=== PATIENT | female | born 2000 | race Caucasian/White ===

== ENCOUNTER 2019-07-02 11:56 | Emergency (ER) | payer OTHER ==
[2019-07-02 12:01] VITALS: BP 121/82; PULSE 95; RESP 16; TEMP 98.1
--- NOTE | 2019-07-02 12:12 | ED ---
ENT HPI - General Chief complaint: ENT Stated complaint: sorethroat Time Seen by Provider: 07/02/19 12:01 Source: patient Mode of arrival: ambulatory Limitations: no limitations - History of Present Illness Initial comments: Patient is a 19-year-old female presenting to the emergency Department with complaints of a sore throat 2 days. Patient states throat started hurting about a week ago then symptoms improved until about 2 days ago when she noticed pain with swallowing and her tonsils are enlarged. Patient denies fever, chills, cough, congestion, nausea, vomiting. Patient has no other complaints at this time. Patient has no pertinent past medical history. Upon arrival to ER, vital signs are stable. - Related Data Home Medications Medication Instructions Recorded Confirmed Citalopram Hydrobromide 20 mg PO DAILY 05/30/16 05/30/16 [Citalopram HBr] Norgestimate-Ethinyl Estradiol 1 tab PO DAILY 05/30/16 05/30/16 [Ortho Tri-Cyclen 28 Tablet] Previous Rx's Medication Instructions Recorded Penicillin V Potassium [Pen Vee K] 500 mg PO BID 10 Days #20 tablet 07/02/19 methylPREDNISolone [Medrol Dose 4 mg PO DIRECTED #1 pack 07/02/19 Pack] Allergies Allergy/AdvReac Type Severity Reaction Status Date / Time latex Allergy Rash/Hives Verified 07/02/19 12:01 Review of Systems ROS Statement: Those systems with pertinent positive or pertinent negative responses have been documented in the HPI. ROS Other: All systems not noted in ROS Statement are negative. Past Medical History Past Medical History: No Reported History History of Any Multi-Drug Resistant Organisms: None Reported Additional Past Surgical History / Comment(s): right knee surgery at age 1 and right hip surgery at 12 Past Psychological History: Anxiety, Bipolar, Depression Smoking Status: Current every day smoker Past Alcohol Use History: Occasional Past Drug Use History: Marijuana General Exam - General Exam Comments Initial Comments: GENERAL: Well-appearing, well-nourished and in no acute distress. HEAD: Atraumatic, normocephalic. EYES: Pupils equal round and reactive to light, extraocular movements intact, sclera anicteric, conjunctiva are normal. ENT: TMs normal, nares patent, oropharynx erythematous, tonsils 2+ enlarged, erythematous, without exudate Moist mucous membranes. NECK: Normal range of motion, supple without lymphadenopathy or JVD. LUNGS: Breath sounds clear to auscultation bilaterally and equal. No wheezes rales or rhonchi. HEART: Regular rate and rhythm without murmurs, rubs or gallops. ABDOMEN: Soft, nontender, normoactive bowel sounds. No guarding, no rebound. No masses appreciated. EXTREMITIES: No pitting or edema. No clubbing or cyanosis. NEUROLOGICAL: Cranial nerves II through XII grossly intact. SKIN: Warm, Dry, normal turgor, no rashes or lesions noted. Limitations: no limitations Course Vital Signs 07/02/19 11:58 Temperature 98.1 F Pulse Rate 95 Respiratory 16 Rate Blood Pressure 121/82 O2 Sat by Pulse 97 Oximetry Medical Decision Making - Medical Decision Making Patient is a 19-year-old female presenting with a sore throat 2 days. Exam reveals tonsillar enlargement and erythematous no exudate. Strep is negative today. Patient will be started on antibiotics and steroids. Patient is stable for discharge at this time. Return parameters were discussed with the patient and she verbalized understanding. Case discussed with Dr. Reyes. - Lab Data Lab Results 07/02/19 Range/Units 12:05 Group A Strep Rapid Negative (Negative) Disposition Clinical Impression: Tonsillitis, Sore throat Disposition: HOME SELF-CARE Condition: Stable Instructions (If sedation given, give patient instructions): Tonsillitis (ED) Additional Instructions: Please return to the Emergency Department if symptoms worsen or any other concerns. Follow-up with PCP if symptoms persist after one week. Take antibiotics and steroids as prescribed. A take Tylenol for pain. Prescriptions: methylPREDNISolone [Medrol Dose Pack] 4 mg PO DIRECTED #1 pack Penicillin V Potassium [Pen Vee K] 500 mg PO BID 10 Days #20 tablet Is patient prescribed a controlled substance at d/c from ED?: No Referrals: Jaime Perrin DO [Primary Care Provider] - 1-2 days
== END 2019-07-02 12:45 | disposition home or self-care (01) ==
LOC: EC 11:56
DX: J03.90 Acute tonsillitis, unspecified (principal); F41.9 Anxiety disorder, unspecified; F31.9 Bipolar disorder, unspecified; F17.200 Nicotine dependence, unspecified, uncomplicated; Z79.899 Other long term (current) drug therapy; Z79.3 Long term (current) use of hormonal contraceptives; Z91.040 Latex allergy status
CPT/HCPCS: 87081; 87430; 99283

== ENCOUNTER 2019-08-15 16:10 | Emergency (ER) | payer OTHER ==
[2019-08-15 16:38] VITALS: BP 119/82; PULSE 91; RESP 19; TEMP 98
[2019-08-15] MEDS ORDERED: SODIUM CHLORIDE 0.9% 1,000 ML IV ONE (17:20)
--- NOTE | 2019-08-15 17:35 | ED ---
General Adult HPI - General Chief complaint: Vaginal Bleeding Stated complaint: Vaginal bleeding Time Seen by Provider: 08/15/19 17:06 Source: patient, RN notes reviewed Mode of arrival: ambulatory Limitations: no limitations - History of Present Illness Initial comments: 19-year-old female presents to the emergency department for chief complaint vaginal bleeding. Patient has had spotting for the past couple weeks. States that she went to the clinic today and was told she was . Patient does admit to cramping abdominal pain with this bleeding. Patient states her last menstrual period was 08/01/2019. Patient states she is currently trying to see Dr. Donovan.Patient has no other complaints at this time including shortness of breath, chest pain, abdominal pain, nausea or vomiting, headache, or visual changes. - Related Data Home Medications Medication Instructions Recorded Confirmed Citalopram Hydrobromide 20 mg PO DAILY 05/30/16 05/30/16 [Citalopram HBr] Norgestimate-Ethinyl Estradiol 1 tab PO DAILY 05/30/16 05/30/16 [Ortho Tri-Cyclen 28 Tablet] Previous Rx's Medication Instructions Recorded Penicillin V Potassium [Pen Vee K] 500 mg PO BID 10 Days #20 tablet 07/02/19 methylPREDNISolone [Medrol Dose 4 mg PO DIRECTED #1 pack 07/02/19 Pack] Cephalexin [Keflex] 500 mg PO Q6HR 7 Days #28 cap 08/15/19 Allergies Allergy/AdvReac Type Severity Reaction Status Date / Time latex Allergy Rash/Hives Verified 07/02/19 12:01 Review of Systems ROS Statement: Those systems with pertinent positive or pertinent negative responses have been documented in the HPI. ROS Other: All systems not noted in ROS Statement are negative. Past Medical History Past Medical History: No Reported History History of Any Multi-Drug Resistant Organisms: None Reported Additional Past Surgical History / Comment(s): right knee surgery at age 1 and right hip surgery at 12 Past Psychological History: Anxiety, Bipolar, Depression Smoking Status: Current every day smoker Past Alcohol Use History: Occasional Past Drug Use History: Marijuana General Exam Limitations: no limitations General appearance: alert, in no apparent distress Head exam: Present: atraumatic, normocephalic, normal inspection Eye exam: Present: normal appearance, PERRL, EOMI. Absent: scleral icterus, conjunctival injection, periorbital swelling ENT exam: Present: normal exam, mucous membranes moist Neck exam: Present: normal inspection, full ROM. Absent: tenderness, meningismus, lymphadenopathy Respiratory exam: Present: normal lung sounds bilaterally. Absent: respiratory distress, wheezes, rales, rhonchi, stridor Cardiovascular Exam: Present: regular rate, normal rhythm, normal heart sounds. Absent: systolic murmur, diastolic murmur, rubs, gallop, clicks GI/Abdominal exam: Present: soft, normal bowel sounds. Absent: distended, tenderness, guarding, rebound, rigid Neurological exam: Present: alert Course Vital Signs 08/15/19 16:36 Temperature 98.0 F Pulse Rate 91 Respiratory 19 Rate Blood Pressure 119/82 O2 Sat by Pulse 99 Oximetry Medical Decision Making - Medical Decision Making Vitals are stable. Patient reports only slight spotting. Admits to some mild cramping. CBC is generally unremarkable. There is some evidence of hemoconcentration to patient was given a liter of fluids. White count of 10.8 is likely reactive. CMP is unremarkable. Urinalysis does show evidence for urinary tract infection. Patient is O+ blood type, does not require RhoGAM. Ultrasound shows an empty uterus without adnexal mass. Given hCG Quant is only 141 with a last menstrual period of August 01, this is likely too early to see any fetus. Therefore hCG will be trended. I discussed with patient and she is aware. Patient is falling up with Dr. Donovan outpatient. She will be treated with Rocephin here in the emergency department for urinary tract infection as well as Keflex at home. - Lab Data Result diagrams: 08/15/19 18:00 08/15/19 18:00 Lab Results 08/15/19 08/15/19 08/15/19 Range/Units 18:00 18:00 18:00 WBC 10.8 H (3.8-10.6) k/uL RBC 5.06 (3.80-5.40) m/uL Hgb 16.5 H (11.4-16.0) gm/dL Hct 46.7 H (34.0-46.0) % MCV 92.2 (80.0-100.0) fL MCH 32.6 (25.0-35.0) pg MCHC 35.3 (31.0-37.0) g/dL RDW 12.8 (11.5-15.5) % Plt Count 334 (150-450) k/uL Neutrophils % 58 % Lymphocytes % 30 % Monocytes % 5 % Eosinophils % 6 % Basophils % 0 % Neutrophils # 6.3 (1.3-7.7) k/uL Lymphocytes # 3.2 (1.0-4.8) k/uL Monocytes # 0.5 (0-1.0) k/uL Eosinophils # 0.6 (0-0.7) k/uL Basophils # 0.0 (0-0.2) k/uL Sodium (137-145) mmol/L Potassium (3.5-5.1) mmol/L Chloride (98-107) mmol/L Carbon Dioxide (22-30) mmol/L Anion Gap mmol/L BUN (7-17) mg/dL Creatinine (0.52-1.04) mg/dL Est GFR (CKD-EPI)AfAm (>60 ml/min/1.73 sqM) Est GFR (CKD-EPI)NonAf (>60 ml/min/1.73 sqM) Glucose (74-99) mg/dL Calcium (8.4-10.2) mg/dL Total Bilirubin (0.2-1.3) mg/dL AST (14-36) U/L ALT (9-52) U/L Alkaline Phosphatase (38-126) U/L Total Protein (6.3-8.2) g/dL Albumin (3.5-5.0) g/dL HCG, Quant mIU/mL Urine Color Urine Appearance (Clear) Urine pH (5.0-8.0) Ur Specific [place] (1.001-1.035) Urine Protein (Negative) Urine Glucose (UA) (Negative) Urine Ketones (Negative) Urine Blood (Negative) Urine Nitrite (Negative) Urine Bilirubin (Negative) Urine Urobilinogen (<2.0) mg/dL Ur Leukocyte Esterase (Negative) Urine RBC (0-5) /hpf Urine WBC (0-5) /hpf Urine WBC Clumps (None) /hpf Ur Squamous Epith Cells (0-4) /hpf Calcium Oxalate Crystal (None) /hpf Urine Bacteria (None) /hpf Urine Mucus (None) /hpf Urine Yeast (Budding) (None) /hpf Urine HCG, Qual Detected (Not Detectd) Blood Type O Positive Blood Type Recheck No Previous Record Bld Type Recheck Status [facility] ONLY 08/15/19 08/15/19 Range/Units 18:00 18:00 WBC (3.8-10.6) k/uL RBC (3.80-5.40) m/uL Hgb (11.4-16.0) gm/dL Hct (34.0-46.0) % MCV (80.0-100.0) fL MCH (25.0-35.0) pg MCHC (31.0-37.0) g/dL RDW (11.5-15.5) % Plt Count (150-450) k/uL Neutrophils % % Lymphocytes % % Monocytes % % Eosinophils % % Basophils % % Neutrophils # (1.3-7.7) k/uL Lymphocytes # (1.0-4.8) k/uL Monocytes # (0-1.0) k/uL Eosinophils # (0-0.7) k/uL Basophils # (0-0.2) k/uL Sodium 140 (137-145) mmol/L Potassium 4.2 (3.5-5.1) mmol/L Chloride 111 H (98-107) mmol/L Carbon Dioxide 20 L (22-30) mmol/L Anion Gap 9 mmol/L BUN 9 (7-17) mg/dL Creatinine 0.70 (0.52-1.04) mg/dL Est GFR (CKD-EPI)AfAm >90 (>60 ml/min/1.73 sqM) Est GFR (CKD-EPI)NonAf >90 (>60 ml/min/1.73 sqM) Glucose 77 (74-99) mg/dL Calcium 10.0 (8.4-10.2) mg/dL Total Bilirubin 0.5 (0.2-1.3) mg/dL AST 27 (14-36) U/L ALT 22 (9-52) U/L Alkaline Phosphatase 80 (38-126) U/L Total Protein 7.3 (6.3-8.2) g/dL Albumin 4.6 (3.5-5.0) g/dL HCG, Quant 141.0 mIU/mL Urine Color Yellow Urine Appearance Cloudy H (Clear) Urine pH 5.5 (5.0-8.0) Ur Specific [place] 1.023 (1.001-1.035) Urine Protein 1+ H (Negative) Urine Glucose (UA) Negative (Negative) Urine Ketones Negative (Negative) Urine Blood Large H (Negative) Urine Nitrite Positive H (Negative) Urine Bilirubin Negative (Negative) Urine Urobilinogen <2.0 (<2.0) mg/dL Ur Leukocyte Esterase Small H (Negative) Urine RBC 78 H (0-5) /hpf Urine WBC 29 H (0-5) /hpf Urine WBC Clumps Few H (None) /hpf Ur Squamous Epith Cells 4 (0-4) /hpf Calcium Oxalate Crystal Few H (None) /hpf Urine Bacteria Occasional H (None) /hpf Urine Mucus Few H (None) /hpf Urine Yeast (Budding) Rare H (None) /hpf Urine HCG, Qual (Not Detectd) Blood Type Blood Type Recheck Bld Type Recheck Status Disposition Clinical Impression: Urinary tract infection, Threatened miscarriage Disposition: HOME SELF-CARE Condition: Good Instructions (If sedation given, give patient instructions): Threatened Miscarriage (ED) Additional Instructions: Please repeat hCG in 2 days. Please follow-up with [facility] in one to 2 days. Take antibiotic as directed. This was prescribed to [facility]. If you have any worsening symptoms such as heavier bleeding, abdominal pain, fevers return to the emergency department. Prescriptions: Cephalexin [Keflex] 500 mg PO Q6HR 7 Days #28 cap Is patient prescribed a controlled substance at d/c from ED?: No Referrals: Jackie Barraza MD [REFERRING] - 1-2 days Time of Disposition: 19:05
[2019-08-15 18:16] LABS: Basophils % (A) 0 %; Eosinophils # (A) 0.6 k/uL (0-0.7); Eosinophils % (A) 6 %; HCT 46.7 % (34.0-46.0); HGB 16.5 gm/dL (11.4-16.0); Lymphocytes # (A) 3.2 k/uL (1.0-4.8); Lymphocytes % (A) 30 %; MCH 32.6 pg (25.0-35.0); MCHC 35.3 g/dL (31.0-37.0); MCV 92.2 fL (80.0-100.0); Mean Platelet Volume 7.3; Monocytes # (A) 0.5 k/uL (0-1.0); Monocytes % (A) 5 %; Neutrophils # (A) 6.3 k/uL (1.3-7.7); Neutrophils % (A) 58 %; Platelet Count 334 k/uL (150-450); RBC 5.06 m/uL (3.80-5.40); RDW 12.8 % (11.5-15.5); WBC 10.8 k/uL (3.8-10.6)
[2019-08-15 18:25] LABS: Appearance,Urine Cloudy (Clear); Bacteria,Urine Occasional /hpf; Bilirubin,Urine Negative (Negative); Blood,Urine Large (Negative); Budding Yeast,Urine Rare /hpf; Calcium Oxalate Crystals,Urine Few /hpf; Color,Urine Yellow; Glucose,Urine (UA) Negative (Negative); Ketones,Urine Negative (Negative); Leukocyte Esterase,Urine Small (Negative); Mucus,Urine Few /hpf; Nitrite,Urine Positive (Negative); PH, Urine 5.5 (5.0-8.0); Protein,Urine 1+ (Negative); RBC,Urine 78 /hpf (0-5); Specific Gravity,Urine 1.023 (1.001-1.035); Squamous Epithelial Cell,Urine 4 /hpf (0-4); Urobilinogen,Urine <2.0 mg/dL (<2.0)
[2019-08-15 18:34] LABS: ALT 22 U/L (9-52); AST 27 U/L (14-36); African American GFR (CKD) >90 (>60 ml/min/1.73 sqM); Albumin 4.6 g/dL (3.5-5.0); Alkaline Phosphatase 80 U/L (38-126); Anion Gap 9 mmol/L; Blood Urea Nitrogen 9 mg/dL (7-17); Carbon Dioxide 20 mmol/L (22-30); Chloride 111 mmol/L (98-107); Glucose 77 mg/dL (74-99); Non-African American GFR(CKD) >90 (>60 ml/min/1.73 sqM); Potassium 4.2 mmol/L (3.5-5.1); Sodium 140 mmol/L (137-145); Total Bilirubin 0.5 mg/dL (0.2-1.3); Total Protein 7.3 g/dL (6.3-8.2)
--- NOTE | 2019-08-15 18:35 | US ---
EXAMINATION TYPE: Transabdominal DATE OF EXAM: 08/15/2019 6:15 PM COMPARISON: NONE CLINICAL HISTORY: pain. Spotting EXAM PERFORMED: Transabdominal (TA) EXAM MEASUREMENTS: GESTATIONAL AGE / DATING Physician Established: Not yet established ( Dates by LMP: (2 weeks/0 days) EDC: 05/07/2020 Dates by First Scan: No previous this is first scan Dates by Current Scan for: No IUP seen at this time MATERNAL ANATOMY Uterus: 7.4 x 3.0 x 4.6 cm Right Ovary: 3.2 x 2.9 x 2.2 cm Cystic area seen only no ovarian tissue. Left Ovary: 2.4 x 1.8 x 1.3 cm Post CDS / Adnexa: wnl Presence of free fluid: no Presence of corpus luteal cyst: yes right Presence of subchorionic bleed: no GESTATION / SURVEY IUP: No IUP seen too early. Beta HcG (if available): Not available at this time IMPRESSION: Empty uterus. No adnexal mass or free fluid.
[2019-08-15] MEDS ORDERED: cefTRIAXone IN SWFI 1,000 MG/10 ML SYRINGE IVP STA (18:58)
[2019-08-16 15:54] LABS: C. trachomatis,PCR Negative (Neg,Equiv); Chlamydia trachomatis Source Urine; N. gonorrhoeae,PCR Negative (Neg,Equiv); Neisseria Source Urine
== END 2019-08-15 19:50 | disposition home or self-care (01) ==
LOC: EC 16:10
DX: O20.0 Threatened abortion (principal); O23.40 Unspecified infection of urinary tract in pregnancy, unspecified trimester; O99.340 Other mental disorders complicating pregnancy, unspecified trimester; F41.9 Anxiety disorder, unspecified; F32.9 Major depressive disorder, single episode, unspecified; O99.330 Smoking (tobacco) complicating pregnancy, unspecified trimester; F17.200 Nicotine dependence, unspecified, uncomplicated; Z3A.00 Weeks of gestation of pregnancy not specified; Z79.899 Other long term (current) drug therapy; Z91.040 Latex allergy status
CPT/HCPCS: 36415; 86900; 86901; 80053; 85025; 81001; 81025; 84702; 87491; 87591; 87086; 76801; 99284; 96374; 96361; J0696; 87077; 87186

== ENCOUNTER → 2019-08-17 | Outpatient (CLI) | payer OTHER | END | disposition home or self-care (01) | LOC: LABWHC1 10:08 | PROVIDERS: ATTEND Physician Assistant Medical | DX: O20.0 Threatened abortion (principal) | CPT/HCPCS: 36415; 84702 ==

== ENCOUNTER → 2019-08-19 | Outpatient (CLI) | payer OTHER | END | disposition home or self-care (01) | LOC: LABWHC1 14:09 | PROVIDERS: ATTEND Obstetrics & Gynecology | DX: O03.9 Complete or unspecified spontaneous abortion without complication (principal) | CPT/HCPCS: 36415; 84702 ==

== ENCOUNTER → 2019-10-28 | Outpatient (CLI) | payer OTHER | END | disposition home or self-care (01) | LOC: LABWHC1 15:35 | PROVIDERS: ATTEND Obstetrics & Gynecology | DX: Z34.80 Encounter for supervision of other normal pregnancy, unspecified trimester (principal) | CPT/HCPCS: 36415; 84702 ==

== ENCOUNTER → 2019-11-04 | Outpatient (CLI) | payer OTHER ==
--- NOTE | 2019-11-04 08:02 | US ---
EXAMINATION TYPE: Transabdominal DATE OF EXAM: 11/04/2019 7:35 AM COMPARISON: NONE CLINICAL HISTORY: Z36 Confirm Dates. Confirm dates. No spotting or pain. EXAM PERFORMED: Transabdominal (TA) EXAM MEASUREMENTS: GESTATIONAL AGE / DATING Dates by LMP: (6 weeks/5 days) EDC: 06/24/2020 Dates by First Scan: No previous this is first scan Dates by Current Scan for: ( 6 weeks/2 days) EDC: 06/27/2020 MATERNAL ANATOMY Uterus: 8.9 x 7.1 x 4.5 cm Right Ovary: 2.9 x 1.1 x 1.5 cm Left Ovary: 3.6 x 2.7 x 2.6 cm Post CDS / Adnexa: no free fluid Presence of free fluid: no Presence of corpus luteal cyst: left ovarian lesion with peripheral vascular flow = 2.8 x 2.1 x 2.1 c m Presence of subchorionic bleed: no GESTATION / SURVEY CRL: 0.5 cm (6 weeks/2 days) MSD: seen, not measured Yolk Sac (normal less than 6mm): 2.8 mm Heart Rate: 120 bpm Rhythm: Normal IUP: Live IUP Date of LMP: 09/18/2019, Beta HcG (if available): Not available at this time Single live IUP measuring 6 weeks 2 days IMPRESSION: Single live intrauterine with a sonographic age of 6 weeks and 2 days and estim ated date of delivery of 06/27/2020, concordant with menstrual age.
== END | disposition home or self-care (01) ==
LOC: RADUSWWP 07:08
PROVIDERS: ATTEND Obstetrics & Gynecology
DX: Z36.89 Encounter for other specified antenatal screening (principal); Z3A.01 Less than 8 weeks gestation of pregnancy
CPT/HCPCS: 76801

== ENCOUNTER 2019-11-14 15:36 | Emergency (ER) | payer OTHER ==
[2019-11-14] MEDS ORDERED: SODIUM CHLORIDE 0.9% 1,000 ML IV STA ×2 (16:14)
--- NOTE | 2019-11-14 16:17 | ED ---
Abdominal Pain HPI - General Chief Complaint: Abdominal Pain Stated Complaint: abdominal pain/rectal bleeding/8 wks Time Seen by Provider: 11/14/19 15:58 Source: patient Mode of arrival: ambulatory Limitations: no limitations - History of Present Illness Initial Comments: Connie is a 19-year-old female who is currently 8 weeks . She presents emergency department today with abdominal pain cramping sensation for the past 3 days. She initially reports it started with constipation and then developed diarrhea yesterday. She reports now she is having bloody stools. Patient states she's had no vaginal bleeding or discharge. Her [employer] is Dr. Donovan. Patient states that she is a Patient with multiple miscarriages. re ports she's also been having nausea and vomiting but relates that this is seems to be related to morning sickness related to . - Related Data Home Medications Medication Instructions Recorded Confirmed Citalopram Hydrobromide 20 mg PO DAILY 05/30/16 05/30/16 [Citalopram HBr] Norgestimate-Ethinyl Estradiol 1 tab PO DAILY 05/30/16 05/30/16 [Ortho Tri-Cyclen 28 Tablet] Previous Rx's Medication Instructions Recorded Penicillin V Potassium [Pen Vee K] 500 mg PO BID 10 Days #20 tablet 07/02/19 methylPREDNISolone [Medrol Dose 4 mg PO DIRECTED #1 pack 07/02/19 Pack] Cephalexin [Keflex] 500 mg PO Q6HR 7 Days #28 cap 08/15/19 Cephalexin [Keflex] 500 mg PO Q8HR #21 cap 11/14/19 Metoclopramide [Reglan] 10 mg PO ACHS #12 tab 11/14/19 Allergies Allergy/AdvReac Type Severity Reaction Status Date / Time latex Allergy Rash/Hives Verified 07/02/19 12:01 Review of Systems ROS Statement: Those systems with pertinent positive or pertinent negative responses have been documented in the HPI. ROS Other: All systems not noted in ROS Statement are negative. Past Medical History Past Medical History: No Reported History History of Any Multi-Drug Resistant Organisms: None Reported Additional Past Surgical History / Comment(s): right knee surgery at age 1 and right hip surgery at 12 Past Psychological History: Anxiety, Bipolar, Depression Smoking Status: Current every day smoker Past Alcohol Use History: Occasional Past Drug Use History: Marijuana General Exam - General Exam Comments Initial Comments: 5-year-old field. Alert and oriented. Limitations: no limitations General appearance: alert, in no apparent distress Head exam: Present: atraumatic, normocephalic, normal inspection Eye exam: Present: normal appearance, PERRL, EOMI. Absent: scleral icterus, conjunctival injection, periorbital swelling ENT exam: Present: normal exam, mucous membranes moist Neck exam: Present: normal inspection. Absent: tenderness, meningismus, lymphadenopathy Respiratory exam: Present: normal lung sounds bilaterally. Absent: respiratory distress, wheezes, rales, rhonchi, stridor Cardiovascular Exam: Present: regular rate, normal rhythm, normal heart sounds. Absent: systolic murmur, diastolic murmur, rubs, gallop, clicks GI/Abdominal exam: Present: soft, normal bowel sounds. Absent: distended, tenderness, guarding, rebound, rigid Extremities exam: Present: normal inspection, full ROM, normal capillary refill. Absent: tenderness, pedal edema, joint swelling, calf tenderness Back exam: Present: normal inspection Neurological exam: Present: alert, oriented X3, CN II-XII intact Psychiatric exam: Present: normal affect, normal mood Skin exam: Present: warm, dry, intact, normal color. Absent: rash Course Vital Signs 11/14/19 11/14/19 11/14/19 15:37 18:43 18:58 Temperature 97.4 F L 98.4 F 98.4 F Pulse Rate 106 H 86 86 Respiratory 18 16 16 Rate Blood Pressure 124/85 108/64 108/64 O2 Sat by Pulse 100 100 100 Oximetry Medical Decision Making - Medical Decision Making Sodium 1-year-old female presents emergency room status of bloody stool, also complains some lower abdominal discomfort. Patient has a weeks . Viable IUP with a heart rate of 158-1 60 bpm. Patient's stool occult is positive. Hemoglobin is stable. Discussed likely colitis. Discussed clear liquid diet and following up with PCP. All questions answered. - Lab Data Result diagrams: 11/14/19 16:45 11/14/19 16:45 Lab Results 11/14/19 11/14/19 11/14/19 Range/Units 16:45 16:45 16:45 WBC 10.8 H (3.8-10.6) k/uL RBC 5.01 (3.80-5.40) m/uL Hgb 15.7 (11.4-16.0) gm/dL Hct 44.6 (34.0-46.0) % MCV 89.0 (80.0-100.0) fL MCH 31.3 (25.0-35.0) pg MCHC 35.1 (31.0-37.0) g/dL RDW 11.9 (11.5-15.5) % Plt Count 291 (150-450) k/uL Neutrophils % 73 % Lymphocytes % 20 % Monocytes % 4 % Eosinophils % 1 % Basophils % 0 % Neutrophils # 7.9 H (1.3-7.7) k/uL Lymphocytes # 2.2 (1.0-4.8) k/uL Monocytes # 0.5 (0-1.0) k/uL Eosinophils # 0.1 (0-0.7) k/uL Basophils # 0.0 (0-0.2) k/uL PT 9.5 (9.0-12.0) sec INR 0.9 (<1.2) APTT 23.8 (22.0-30.0) sec Sodium (137-145) mmol/L Potassium (3.5-5.1) mmol/L Chloride (98-107) mmol/L Carbon Dioxide (22-30) mmol/L Anion Gap mmol/L BUN (7-17) mg/dL Creatinine (0.52-1.04) mg/dL Est GFR (CKD-EPI)AfAm (>60 ml/min/1.73 sqM) Est GFR (CKD-EPI)NonAf (>60 ml/min/1.73 sqM) Glucose (74-99) mg/dL Calcium (8.4-10.2) mg/dL Total Bilirubin (0.2-1.3) mg/dL AST (14-36) U/L ALT (4-34) U/L Alkaline Phosphatase (38-126) U/L Total Protein (6.3-8.2) g/dL Albumin (3.5-5.0) g/dL Amylase (30-110) U/L Lipase (23-300) U/L Urine Color Urine Appearance (Clear) Urine pH (5.0-8.0) Ur Specific [place] (1.001-1.035) Urine Protein (Negative) Urine Glucose (UA) (Negative) Urine Ketones (Negative) Urine Blood (Negative) Urine Nitrite (Negative) Urine Bilirubin (Negative) Urine Urobilinogen (<2.0) mg/dL Ur Leukocyte Esterase (Negative) Urine RBC (0-5) /hpf Urine WBC (0-5) /hpf Ur Squamous Epith Cells (0-4) /hpf Urine Bacteria (None) /hpf Urine Mucus (None) /hpf Stool Occult Blood (Negative) Blood Type O Positive Blood Type Recheck O Pos Bld Type Recheck Status No 11/14/19 11/14/19 11/14/19 Range/Units 16:45 16:45 16:45 WBC (3.8-10.6) k/uL RBC (3.80-5.40) m/uL Hgb (11.4-16.0) gm/dL Hct (34.0-46.0) % MCV (80.0-100.0) fL MCH (25.0-35.0) pg MCHC (31.0-37.0) g/dL RDW (11.5-15.5) % Plt Count (150-450) k/uL Neutrophils % % Lymphocytes % % Monocytes % % Eosinophils % % Basophils % % Neutrophils # (1.3-7.7) k/uL Lymphocytes # (1.0-4.8) k/uL Monocytes # (0-1.0) k/uL Eosinophils # (0-0.7) k/uL Basophils # (0-0.2) k/uL PT (9.0-12.0) sec INR (<1.2) APTT (22.0-30.0) sec Sodium 137 (137-145) mmol/L Potassium 3.9 (3.5-5.1) mmol/L Chloride 108 H (98-107) mmol/L Carbon Dioxide 19 L (22-30) mmol/L Anion Gap 10 mmol/L BUN 7 (7-17) mg/dL Creatinine 0.69 (0.52-1.04) mg/dL Est GFR (CKD-EPI)AfAm >90 (>60 ml/min/1.73 sqM) Est GFR (CKD-EPI)NonAf >90 (>60 ml/min/1.73 sqM) Glucose 83 (74-99) mg/dL Calcium 9.9 (8.4-10.2) mg/dL Total Bilirubin 0.5 (0.2-1.3) mg/dL AST 28 (14-36) U/L ALT 44 H (4-34) U/L Alkaline Phosphatase 83 (38-126) U/L Total Protein 7.2 (6.3-8.2) g/dL Albumin 4.5 (3.5-5.0) g/dL Amylase 37 (30-110) U/L Lipase 40 (23-300) U/L Urine Color Yellow Urine Appearance Cloudy H (Clear) Urine pH 6.5 (5.0-8.0) Ur Specific [place] 1.035 (1.001-1.035) Urine Protein 1+ H (Negative) Urine Glucose (UA) Negative (Negative) Urine Ketones 1+ H (Negative) Urine Blood Negative (Negative) Urine Nitrite Negative (Negative) Urine Bilirubin Negative (Negative) Urine Urobilinogen 2.0 (<2.0) mg/dL Ur Leukocyte Esterase Moderate H (Negative) Urine RBC 2 (0-5) /hpf Urine WBC 7 H (0-5) /hpf Ur Squamous Epith Cells 32 H (0-4) /hpf Urine Bacteria Rare H (None) /hpf Urine Mucus Many H (None) /hpf Stool Occult Blood Positive H (Negative) Blood Type Blood Type Recheck Bld Type Recheck Status - Radiology Data Radiology results: report reviewed Ultrasound shows viable IUP with heart rate of 116 1 58 bpm. Disposition Clinical Impression: Colitis, UTI (urinary tract infection), Nausea/vomiting in Disposition: HOME SELF-CARE Condition: Good Instructions (If sedation given, give patient instructions): Nausea and Vomiting in (ED), Colitis (ED) Additional Instructions: Please use medication as discussed. Patient advised on a clear liquid diet for the next 24 hours. Please follow up with family doctor if symptoms have not improved over the next two days. Please return to the emergency room if your symptoms increase or worsen or for any other concerns. Prescriptions: Cephalexin [Keflex] 500 mg PO Q8HR #21 cap Metoclopramide [Reglan] 10 mg PO ACHS #12 tab Is patient prescribed a controlled substance at d/c from ED?: No Referrals: Jaime Perrin DO [Primary Care Provider] - 1-2 days Time of Disposition: 18:10
[2019-11-14] MEDS ORDERED: ACETAMINOPHEN TAB 500 MG TAB PO STA (16:56)
[2019-11-14 17:06] LABS: INR 0.9 (<1.2); Partial Thromboplastin Time 23.8 sec (22.0-30.0); Prothrombin Time 9.5 sec (9.0-12.0)
[2019-11-14 17:08] LABS: ALT 44 U/L (4-34); AST 28 U/L (14-36); African American GFR (CKD) >90 (>60 ml/min/1.73 sqM); Albumin 4.5 g/dL (3.5-5.0); Alkaline Phosphatase 83 U/L (38-126); Amylase 37 U/L (30-110); Anion Gap 10 mmol/L; Blood Urea Nitrogen 7 mg/dL (7-17); Calcium 9.9 mg/dL (8.4-10.2); Carbon Dioxide 19 mmol/L (22-30); Chloride 108 mmol/L (98-107); Glucose 83 mg/dL (74-99); Non-African American GFR(CKD) >90 (>60 ml/min/1.73 sqM); Potassium 3.9 mmol/L (3.5-5.1); Sodium 137 mmol/L (137-145); Total Bilirubin 0.5 mg/dL (0.2-1.3); Total Protein 7.2 g/dL (6.3-8.2)
[2019-11-14 17:09] LABS: Appearance,Urine Cloudy (Clear); Bacteria,Urine Rare /hpf; Bilirubin,Urine Negative (Negative); Blood,Urine Negative (Negative); Color,Urine Yellow; Glucose,Urine (UA) Negative (Negative); Ketones,Urine 1+ (Negative); Leukocyte Esterase,Urine Moderate (Negative); Mucus,Urine Many /hpf; Nitrite,Urine Negative (Negative); PH, Urine 6.5 (5.0-8.0); Protein,Urine 1+ (Negative); RBC,Urine 2 /hpf (0-5); Specific Gravity,Urine 1.035 (1.001-1.035); Squamous Epithelial Cell,Urine 32 /hpf (0-4); WBC,Urine 7 /hpf (0-5)
[2019-11-14 17:13] LABS: Basophils % (A) 0 %; Eosinophils # (A) 0.1 k/uL (0-0.7); Eosinophils % (A) 1 %; HCT 44.6 % (34.0-46.0); HGB 15.7 gm/dL (11.4-16.0); Lymphocytes # (A) 2.2 k/uL (1.0-4.8); Lymphocytes % (A) 20 %; MCH 31.3 pg (25.0-35.0); MCHC 35.1 g/dL (31.0-37.0); Mean Platelet Volume 7.8; Monocytes # (A) 0.5 k/uL (0-1.0); Monocytes % (A) 4 %; Neutrophils # (A) 7.9 k/uL (1.3-7.7); Neutrophils % (A) 73 %; Platelet Count 291 k/uL (150-450); RBC 5.01 m/uL (3.80-5.40); RDW 11.9 % (11.5-15.5); WBC 10.8 k/uL (3.8-10.6)
--- NOTE | 2019-11-14 17:28 | US ---
EXAMINATION TYPE: US OB limited DATE OF EXAM: 11/14/2019 COMPARISON: Prior ultrasound November 04, 2019. CLINICAL HISTORY: heart tones. Abnormal exam. EXAM PERFORMED: Transabdominal (TA) GESTATIONAL AGE / DATING No growth performed on today?s study per ordering physician SURVEY HEART RATE: Measured 160 and 158 on 2 images saved bpm IMPRESSION: Only 3 images performed confirm persistent live intrauterine gestation with normal heart rate.
[2019-11-14] MEDS ORDERED: diphenhydrAMINE 50 MG/ML 1 ML VIAL IVP STA (18:08)
[2019-11-14] MEDS ORDERED: METOCLOPRAMIDE 5 MG/ML 2 ML VIAL IVP STA (18:08)
[2019-11-14 18:44] VITALS: BP 108/64; PULSE 86; RESP 16; TEMP 98.4
== END 2019-11-14 18:58 | disposition home or self-care (01) ==
LOC: EC 15:36
DX: O23.41 Unspecified infection of urinary tract in pregnancy, first trimester (principal); O99.611 Diseases of the digestive system complicating pregnancy, first trimester; K52.9 Noninfective gastroenteritis and colitis, unspecified; O99.331 Smoking (tobacco) complicating pregnancy, first trimester; F17.200 Nicotine dependence, unspecified, uncomplicated; O99.341 Other mental disorders complicating pregnancy, first trimester; F41.9 Anxiety disorder, unspecified; F31.9 Bipolar disorder, unspecified; Z79.3 Long term (current) use of hormonal contraceptives; Z79.899 Other long term (current) drug therapy; Z91.040 Latex allergy status; Z3A.08 8 weeks gestation of pregnancy
CPT/HCPCS: 36415; 86900; 86901; 80053; 82150; 83690; 85025; 85610; 85730; 82272; 81001; 76815; 99284; 96374; 96375; 96361 ×2; J1200; J2765

== ENCOUNTER 2020-01-16 21:56 | Emergency (ER) | payer OTHER ==
[2020-01-16 22:01] VITALS: BP 108/75; RESP 18; TEMP 98.2
--- NOTE | 2020-01-16 22:18 | ED ---
Upper Extremity HPI - General Chief Complaint: Extremity Injury, Upper Stated Complaint: Shoulder Pain, 17 wks Time Seen by Provider: 01/16/20 22:02 Source: patient Mode of arrival: ambulatory Limitations: no limitations - History of Present Illness Initial Comments: 19-year-old female patient who is 17 weeks presents to the emergency [facility] today for evaluation of left shoulder pain. Patient states about 3 weeks ago she was painting, stepped back and tripped and fell into a chair which then tipped over onto the side landing on her left side. Patient states since that time she's been having pain with movement of the hand. States today she dropped her coffee cup due to some weakness. States she does have pain radiating from the left shoulder down to the elbow. She denies any swelling, numbness, or tingling to the hand. Denies any neck injury. Patient denies any headache, back pain, chest pain, shortness of breath, dizziness, weakness, abdominal pain, nausea, vomiting, or difficulties with bowel movements or urination. - Related Data Home Medications Medication Instructions Recorded Confirmed Nitrofurantoin Monohyd/M-Cryst 100 mg PO BID 01/16/20 01/16/20 [Macrobid] Ondansetron [Zofran ODT] 4 mg PO TID PRN 01/16/20 01/16/20 Pnv,Calcium 72/Iron/Folic Acid 1 tab PO DAILY 01/16/20 01/16/20 [ Plus Tablet] Zolpidem Tartrate [Ambien] 5 mg PO HS 01/16/20 01/16/20 Allergies Allergy/AdvReac Type Severity Reaction Status Date / Time latex Allergy Rash/Hives Verified 01/16/20 22:31 Review of Systems ROS Statement: Those systems with pertinent positive or pertinent negative responses have been documented in the HPI. ROS Other: All systems not noted in ROS Statement are negative. Past Medical History Past Medical History: No Reported History History of Any Multi-Drug Resistant Organisms: None Reported Past Surgical History: Orthopedic Surgery Additional Past Surgical History / Comment(s): right knee surgery at age 1 and right hip surgery at 12 Past Psychological History: Anxiety, Bipolar, Depression Smoking Status: Current every day smoker Past Alcohol Use History: None Reported Past Drug Use History: None Reported, Marijuana General Exam Limitations: no limitations General appearance: alert, in no apparent distress, other (Physical well- developed, well-nourished adult female patient in no acute distress. Vital signs upon presentation are temperature 98.2F, pulse 109, respirations 18, blood pressure 108/75, pulse ox 100% on room air.) Neck exam: Present: normal inspection, full ROM, other (Nontender, no step-off, no deformity to firm midline palpation of the posterior cervical spine. Full range of motion without pain or limitation.). Absent: tenderness, meningismus, lymphadenopathy Respiratory exam: Present: normal lung sounds bilaterally. Absent: respiratory distress, wheezes, rales, rhonchi, stridor Cardiovascular Exam: Present: regular rate, normal rhythm, normal heart sounds. Absent: systolic murmur, diastolic murmur, rubs, gallop, clicks Extremities exam: Present: normal inspection, full ROM, tenderness (Tenderness over the clavicle, acromioclavicular joint, scapula, and humeral head.), normal capillary refill, other (There is no soft tissue swelling, or ecchymosis noted to the left shoulder. There is increased pain with range of motion but full active range of motion is intact. Skin to the left arm is pink, warm, dry. Cap refills less than 3 seconds. Radial pulses 2+ and equal bilaterally.). Absent: pedal edema, joint swelling, calf tenderness Neurological exam: Present: alert, oriented X3, CN II-XII intact Psychiatric exam: Present: normal affect, normal mood Skin exam: Present: warm, dry, intact, normal color. Absent: rash Course Vital Signs 01/16/20 21:57 Temperature 98.2 F Pulse Rate 109 H Respiratory 18 Rate Blood Pressure 108/75 O2 Sat by Pulse 100 Oximetry Medical Decision Making - Medical Decision Making 19-year-old female patient presents to the emergency department today for evaluation of left shoulder pain 2 weeks. Physical examination revealed normal inspection and full range of motion of the shoulder. Patient is 17 weeks we did discuss risks versus benefits of x-ray, patient wanted to p roceed with the x-ray with shielding. X-ray was obtained and was negative. We did discuss muscular strain as a cause for her symptoms. We discussed range of motion, Tylenol, heat application. She is instructed follow up with orthopedics for further evaluation. Return parameters were discussed in detail per she verbalizes understanding and agrees with this plan. - Radiology Data Radiology results: report reviewed, image reviewed X-ray of the left shoulder is obtained. Report was reviewed in its entirety. Impression by Dr. Melton shows negative left shoulder exam. Disposition Clinical Impression: Left shoulder strain Disposition: HOME SELF-CARE Condition: Good Instructions (If sedation given, give patient instructions): Shoulder Sprain (ED) Additional Instructions: Follow up with the firearms specialist for further evaluation. Continue to apply warm, moist, heat to the shoulder at least 20 minutes at a time four times daily. Continue tylenol for pain control. Return immediately for any new, worsening, or concerning symptoms. Is patient prescribed a controlled substance at d/c from ED?: No Referrals: Ellis Marx MD [STAFF PHYSICIAN] - 1-2 days Time of Disposition: 22:54
--- NOTE | 2020-01-16 22:44 | XR ---
EXAMINATION TYPE: XR shoulder complete LT DATE OF EXAM: 01/16/2020 COMPARISON: NONE HISTORY: Shoulder pain TECHNIQUE: 3 views FINDINGS: I see no fracture nor dislocation. Joint spaces are normal. There are no pathologic calcifi cations. IMPRESSION: Negative left shoulder exam.
[2020-01-16 23:00] VITALS: PULSE 106
== END 2020-01-16 23:00 | disposition home or self-care (01) ==
LOC: EC 21:56
DX: O9A.212 Injury, poisoning and certain other consequences of external causes complicating pregnancy, second trimester (principal); S46.912A Strain of unspecified muscle, fascia and tendon at shoulder and upper arm level, left arm, initial encounter; O99.332 Smoking (tobacco) complicating pregnancy, second trimester; F17.200 Nicotine dependence, unspecified, uncomplicated; Z91.040 Latex allergy status; Z3A.17 17 weeks gestation of pregnancy; Z98.890 Other specified postprocedural states; W01.0XXA Fall on same level from slipping, tripping and stumbling without subsequent striking against object, initial encounter
CPT/HCPCS: 99283

== ENCOUNTER 2020-02-08 20:10 | Emergency (ER) | payer OTHER ==
[2020-02-08 20:16] VITALS: BP 108/70; PULSE 103; RESP 18; TEMP 98.3
--- NOTE | 2020-02-08 21:13 | ED ---
Extremity Problem HPI - General Source: patient, RN notes reviewed, old records reviewed Mode of arrival: ambulatory Limitations: no limitations <Gretel Corral - Last Filed: 02/10/20 12:35> <Nevaeh Howard - Last Filed: 02/12/20 16:23> - General Chief complaint: Extremity Problem,Nontraumatic Stated complaint: Arm Pain, Hand numbness Time Seen by Provider: 02/08/20 20:36 - History of Present Illness Initial comments: Patient is a 19 year old female, 20 weeks , with CC of L arm and hand pain and numbness and tingling that starts from the shoulder to arm. Patient reports that she was seen adn told likely rotator cuff injury but has not followed up with ortho. She has been taking tylenol. (Gretel Corral) - Related Data Home Medications Medication Instructions Recorded Confirmed Nitrofurantoin Monohyd/M-Cryst 100 mg PO BID 01/16/20 01/16/20 [Macrobid] Ondansetron [Zofran ODT] 4 mg PO TID PRN 01/16/20 01/16/20 Pnv,Calcium 72/Iron/Folic Acid 1 tab PO DAILY 01/16/20 01/16/20 [ Plus Tablet] Zolpidem Tartrate [Ambien] 5 mg PO HS 01/16/20 01/16/20 Allergies Allergy/AdvReac Type Severity Reaction Status Date / Time latex Allergy Rash/Hives Verified 02/08/20 20:16 Review of Systems ROS Other: All systems not noted in ROS Statement are negative. <Gretel Corral - Last Filed: 02/10/20 12:35> ROS Other: All systems not noted in ROS Statement are negative. <Nevaeh Howard - Last Filed: 02/12/20 16:23> ROS Statement: Those systems with pertinent positive or pertinent negative responses have been documented in the HPI. Past Medical History Past Medical History: No Reported History History of Any Multi-Drug Resistant Organisms: None Reported Past Surgical History: Orthopedic Surgery Additional Past Surgical History / Comment(s): right knee surgery at age 1 and right hip surgery at 12 Past Psychological History: Anxiety, Bipolar, Depression Smoking Status: Current every day smoker Past Alcohol Use History: None Reported Past Drug Use History: None Reported, Marijuana <Gretel Corral - Last Filed: 02/10/20 12:35> General Exam Limitations: no limitations General appearance: alert, in no apparent distress Head exam: Present: atraumatic, normocephalic, normal inspection Eye exam: Present: normal appearance, PERRL, EOMI. Absent: scleral icterus, conjunctival injection, periorbital swelling ENT exam: Present: normal exam, mucous membranes moist Neck exam: Present: normal inspection. Absent: tenderness, meningismus, lymphadenopathy Respiratory exam: Present: normal lung sounds bilaterally. Absent: respiratory distress, wheezes, rales, rhonchi, stridor Cardiovascular Exam: Present: regular rate, normal rhythm, normal heart sounds. Absent: systolic murmur, diastolic murmur, rubs, gallop, clicks GI/Abdominal exam: Present: soft, normal bowel sounds. Absent: distended, tenderness, guarding, rebound, rigid Extremities exam: Present: normal inspection, full ROM, normal capillary refill. Absent: tenderness, pedal edema, joint swelling, calf tenderness Left Upper Arm exam: Present: normal inspection, full ROM Elbow exam: Present: normal inspection, full ROM Forearm Wrist exam: Present: normal inspection, full ROM Hand Wrist exam: Present: normal inspection, full ROM Neuro motor exam: Present: wrist extension intact, thumb opposition intact, thumb IP flexion intact, thumb adduction intact, fingers 2-5 abduction intact Vascular: Present: normal capillary refill Back exam: Present: normal inspection Neurological exam: Present: alert, oriented X3, CN II-XII intact Psychiatric exam: Present: normal affect, normal mood Skin exam: Present: warm, dry, intact, normal color. Absent: rash <Gretel Corral - Last Filed: 02/10/20 12:35> - General Exam Comments Initial Comments: 19 year old female, no distress. (Gretel Corral) Course Vital Signs 02/08/20 20:13 Temperature 98.3 F Pulse Rate 103 H Respiratory 18 Rate Blood Pressure 108/70 O2 Sat by Pulse 98 Oximetry Medical Decision Making <Gretel Corral - Last Filed: 02/10/20 12:35> <Nevaeh Howard - Last Filed: 02/12/20 16:23> - Medical Decision Making 19 year old female presents to ED iwth left arm pain and numbness for weeks, she is . PAtient has no fall or trauma. PAtient at this time has full range of motion. She is advised no further imaging needed today. She is advised to do gentle stretching and splinting. Discussed likely tenditiis and possible carpal tunnel. Discussed ortho follow up. (Gretel Corral) I was available for consultation in the emergency department. The history and physical exam were done by the midlevel provider. I was not consulted for this patients care. Chart was dictated using pMD[employer] dictation software. Attempts were made to c orrect any dictation errors however some typographical errors may persist. [facility]. (Nevaeh Howard) Disposition Is patient prescribed a controlled substance at d/c from ED?: No Time of Disposition: 21:13 <Gretel Corral - Last Filed: 02/10/20 12:35> <Nevaeh Howard - Last Filed: 02/12/20 16:23> Clinical Impression: Left shoulder pain, Paresthesia of arm Disposition: HOME SELF-CARE Condition: Good Instructions (If sedation given, give patient instructions): Rotator Cuff Tendinitis (ED), Paresthesia (ED) Additional Instructions: Patient should take Tylenol for pain. Patient can use the shoulder sling but still recommended following up with orthopedic. Patient should take the arm and shoulder out of the sling and practice range of motion throughout the day to avoid stiffness shoulder. Referrals: None,Stated [Primary Care Provider] - 1-2 days Jake Delacruz MD [STAFF PHYSICIAN] - 1-2 days
== END 2020-02-08 21:48 | disposition home or self-care (01) ==
LOC: EC 20:10
DX: O26.892 Other specified pregnancy related conditions, second trimester (principal); R20.2 Paresthesia of skin; M25.512 Pain in left shoulder; O99.332 Smoking (tobacco) complicating pregnancy, second trimester; F17.200 Nicotine dependence, unspecified, uncomplicated; Z91.040 Latex allergy status; Z79.899 Other long term (current) drug therapy; Z3A.20 20 weeks gestation of pregnancy
CPT/HCPCS: 99284

== ENCOUNTER 2020-03-04 14:43 | Outpatient (CLI) | payer OTHER ==
[2020-03-04 15:33] LABS: Appearance,Urine Cloudy (Clear); Bilirubin,Urine Negative (Negative); Blood,Urine Negative (Negative); Color,Urine Yellow; Glucose,Urine (UA) Negative (Negative); Ketones,Urine Negative (Negative); Leukocyte Esterase,Urine Small (Negative); Mucus,Urine Many /hpf; Nitrite,Urine Negative (Negative); PH, Urine 6.5 (5.0-8.0); Protein,Urine Trace (Negative); RBC,Urine 1 /hpf (0-5); Specific Gravity,Urine 1.023 (1.001-1.035); Squamous Epithelial Cell,Urine 3 /hpf (0-4); Urobilinogen,Urine <2.0 mg/dL (<2.0); WBC,Urine 9 /hpf (0-5)
[2020-03-04 15:58] LABS: Amphetamine Screen,Urine Not Detected (NotDetected); Barbiturate Screen,Urine Not Detected (NotDetected); Benzodiazepines Screen,Urine Not Detected (NotDetected); Cocaine Screen,Urine Not Detected (NotDetected); Methadone Screen, Urine Not Detected (NotDetected); Opiate Screen,Urine Not Detected (NotDetected); Oxycodone Screen, Urine Not Detected (NotDetected); Phencyclidine Screen,Urine Not Detected (NotDetected); Tricyclic Antidepressant,Urine Not Detected (NotDetected); Urn Cannabinoid Scrn Not Detected (NotDetected)
[2020-03-04 16:09] VITALS: BP 108/55; PULSE 100; RESP 16; TEMP 98.9
--- NOTE | 2020-03-04 16:30 | P.MSEPDOC ---
Presenting Problems - Arrival Data Date of Arrival on Unit: 03/04/20 Time of Arrival on Unit: 14:43 Mode of Transport: Ambulatory - Complaint OB-Reason for Admission/Chief Complaint: Pain Comment: lower abd pain for the last several days, worse today during intercourse and while lifting a mattress Medical History - Information : 5 Para: 0 Term: 0 : 0 Abortions: Spontaneous or Elective: 4 Number of Living Children: 0 - Gestational Age Gestational Age by SHANNON (wks/days): 24 Weeks and 0 Days - History Complications: Smoker Review of Systems - Review of Systems Constitutional: No problems Breast: No problems ENT: No problems Cardiovascular: No problems Respiratory: No problems Gastrointestinal: No problems Genitourinary: No problems Musculoskeletal: No problems Neurological: No problems Skin: No problems Vital Signs - Temperature Temperature: 98.9 F Temperature Source: Temporal Artery Scan - Pulse Right Sitting Pulse Rate: 100 Pulse Assessment Method: Automatic Cuff - Respirations Respiratory Rate: 16 Oxygen Delivery Method: Room Air - Blood Pressure Right Arm Blood Pressure: 108/55 Blood Pressure Mean: 72 Blood Pressure Source: Automatic Cuff Medical Screen Scoring (Pre) - Cervical Exam Dilation: 0 cm = 0 Membranes: Intact - Uterine Contractions Frequency: N/A Duration: N/A Intensity: N/A - Maternal Vital Signs Maternal Temperature: N/A Maternal Blood Pressure: N/A Signs of Preeclampsia: N/A Maternal Respirations: N/A - Maternal Trauma Maternal Trauma: N/A - Assessment - Baby A Baseline FHR: 140 Heart Rate - NICHD Category: Category I (Normal) = 0 Position: N/A Station: N/A - Total Score - Baby A Total Score - Baby A: 0 - Total Score - Baby B Total Score - Baby B: 0 - Total Score - Baby C Total Score - Baby C: 0 - Level of Risk - Baby A Level of Risk - Baby A: Low (0-5) - Level of Risk - Baby B Level of Risk - Baby B: Low (0-5) - Level of Risk - Baby C Level of Risk - Baby C: Low (0-5) Physician Notification (Pre) - Physician Notified Physician Notified Date: 03/04/20 Physician Notified Time: 15:45 New Order Received: Yes (check cervix, and if not dilated d/c home) Disposition - Disposition OB Disposition: Discharge to home Discharge Date: 03/04/20 Discharge Time: 15:50 I agree with the RN Medical Screening Exam: Yes Risk & Benefit of care provided described in d/c instruction: Yes Diagnosis: FALSE LABOR BEFORE 37 COMPLETED WEEKS OF GEST, SECOND TRI (Pt has been having pain for several days, worsened today after lifting a mattress and intercourse. No evidence of PTL. Patient advised to avoid these activities and return if worsening symptoms or concerns.)
== END 2020-03-04 15:50 | disposition home or self-care (01) ==
LOC: FBPOP 14:43
PROVIDERS: ATTEND Obstetrics & Gynecology
DX: O47.02 False labor before 37 completed weeks of gestation, second trimester (principal); Z3A.24 24 weeks gestation of pregnancy
CPT/HCPCS: 81001; 80306; G0463; 99213

== ENCOUNTER 2020-04-16 13:52 | Emergency (ER) | payer OTHER ==
[2020-04-16] MEDS ORDERED: SODIUM CHLORIDE 0.9% 500 ML 500 ML IV STA (14:27)
[2020-04-16] MEDS ORDERED: ALBUTEROL NEBULIZED 2.5 MG/3 ML INHALATION STA (14:27)
[2020-04-16] MEDS ORDERED: ACETAMINOPHEN TAB 500 MG TAB PO STA (14:28)
--- NOTE | 2020-04-16 15:15 | XR ---
EXAMINATION TYPE: XR chest 1V portable DATE OF EXAM: 04/16/2020 COMPARISON: NONE HISTORY: Cough TECHNIQUE: Single frontal view of the chest is obtained. FINDINGS: There is no focal air space opacity, pleural effusion, or pneumothorax seen. The cardiac silhouette size is within normal limits. The osseous structures are intact. Heart size normal. No o vert failure. IMPRESSION: No acute process.
--- NOTE | 2020-04-16 15:23 | ED ---
General Adult HPI - General Chief complaint: Shortness of Breath Stated complaint: Cough, SOB, Sore Throat-30 wks Time Seen by Provider: 04/16/20 14:17 Source: patient, RN notes reviewed, old records reviewed Mode of arrival: ambulatory Limitations: no limitations - History of Present Illness Initial comments: 19-year-old female presenting with chief complaint of dyspnea and cough. Patient is currently approximately 30 weeks . She denies any abdominal pain, vaginal bleeding or vaginal discharge. She has had progressive illness wh ich began as sore throat, mild headache, fever and chills over the past 4-5 days and has developed into a productive cough and dyspnea over the past 2 days. Patient is otherwise healthy, no history of asthma or COPD. she denies lower extremity pain or swelling. - Related Data Home Medications Medication Instructions Recorded Confirmed Pnv,Calcium 72/Iron/Folic Acid 1 tab PO DAILY 01/16/20 04/16/20 [ Plus Tablet] Zolpidem Tartrate [Ambien] 5 mg PO HS 01/16/20 04/16/20 Sertraline [Zoloft] 50 mg PO HS 03/04/20 04/16/20 Previous Rx's Medication Instructions Recorded Albuterol Sulfate [Proair Hfa] 1 - 2 puff INHALATION Q6HR PRN #1 04/16/20 inhaler Allergies Allergy/AdvReac Type Severity Reaction Status Date / Time latex Allergy Rash/Hives Verified 04/16/20 16:50 Penicillins Allergy Swelling Verified 04/16/20 16:50 Review of Systems ROS Statement: Those systems with pertinent positive or pertinent negative responses have been documented in the HPI. ROS Other: All systems not noted in ROS Statement are negative. Past Medical History Past Medical History: No Reported History History of Any Multi-Drug Resistant Organisms: None Reported Past Surgical History: Orthopedic Surgery Additional Past Surgical History / Comment(s): right knee surgery at age 1 and right hip surgery at 12 Past Psychological History: Anxiety, Bipolar, Depression Smoking Status: Current every day smoker Past Alcohol Use History: None Reported Past Drug Use History: None Reported, Marijuana General Exam Limitations: no limitations General appearance: alert, in no apparent distress Head exam: Present: atraumatic, normocephalic Eye exam: Present: normal appearance, PERRL ENT exam: Present: mucous membranes dry, other (Mild pharyngeal erythema) Neck exam: Present: normal inspection. Absent: tenderness, meningismus Respiratory exam: Present: respiratory distress, wheezes, rhonchi Cardiovascular Exam: Present: normal rhythm, tachycardia GI/Abdominal exam: Present: soft, other (Gravid). Absent: tenderness Extremities exam: Present: normal inspection, normal capillary refill. Absent: pedal edema, calf tenderness Neurological exam: Present: alert, oriented X3, CN II-XII intact. Absent: motor sensory deficit Psychiatric exam: Present: normal affect, normal mood Skin exam: Present: warm, diaphoretic Course Vital Signs 04/16/20 04/16/20 04/16/20 14:00 14:15 14:28 Temperature 98.1 F Pulse Rate 138 H 120 H Respiratory 22 25 H 28 H Rate Blood Pressure 103/70 107/70 O2 Sat by Pulse 97 97 Oximetry 04/16/20 04/16/20 04/16/20 14:30 15:00 15:30 Temperature Pulse Rate 115 H 115 H 109 H Respiratory 30 H 33 H 34 H Rate Blood Pressure 107/70 111/74 97/71 O2 Sat by Pulse 97 96 97 Oximetry 04/16/20 04/16/20 04/16/20 15:34 15:49 16:00 Temperature Pulse Rate 106 H 112 H 110 H Respiratory 18 18 31 H Rate Blood Pressure 107/72 O2 Sat by Pulse 97 Oximetry 04/16/20 04/16/20 04/16/20 16:30 17:00 17:30 Temperature Pulse Rate 126 H 113 H 107 H Respiratory 32 H 20 21 Rate Blood Pressure 117/70 119/73 107/71 O2 Sat by Pulse 98 96 97 Oximetry 04/16/20 18:00 Temperature 97.9 F Pulse Rate 104 H Respiratory 26 H Rate Blood Pressure 101/72 O2 Sat by Pulse 96 Oximetry - Reevaluation(s) Reevaluation #1: 04/16/20 16:53 Patient has significant improvement in respiratory status after albuterol, she does remain tachycardic, normal oxygenation on room air, no respiratory distress. EKG Findings - EKG Comments: EKG Findings:: EKG: Sinus tachycardia, rate of 113 NJ interval 152, QRS duration 100, QTC 436, no ST segment elevation Medical Decision Making - Medical Decision Making 19-year-old cough, dyspnea. There is concern for coronavirus in this patient. She has broken spastic cough, wheezing and rhonchi bilaterally. Chest x-rays performed this is negative for focal pneumonia. Patient has mild leukocytosis of 11.8, stable hemoglobin. She has a troponin and BNP which are negative. History and exam are consistent with bronchitis and infectious etiology as a cause of her symptoms however she is currently in her third trimester and therefore bilateral lower extremity ultrasound is performed to evaluate for DVT. There is no DVT. After albuterol the patient is feeling much better. My plan was to admit this patient for hydration, bronchodilators as well as symptom control. She does not want to be admitted. She wishes to be discharged. She states this is predominantly because she does not have a second vehicle and her significant other needs this vehicle. I did attempt on multiple occasions to convince the patient to stay she states that she wishes to be discharged and will return with worsening or changing symptoms. heart tones 130-150. - Lab Data Result diagrams: 04/16/20 15:04 04/16/20 15:04 Lab Results 04/16/20 04/16/20 04/16/20 Range/Units 15:04 15:04 15:04 WBC 11.8 H (3.8-10.6) k/uL RBC 4.50 (3.80-5.40) m/uL Hgb 14.0 (11.4-16.0) gm/dL Hct 41.4 (34.0-46.0) % MCV 92.1 (80.0-100.0) fL MCH 31.1 (25.0-35.0) pg MCHC 33.7 (31.0-37.0) g/dL RDW 13.5 (11.5-15.5) % Plt Count 232 (150-450) k/uL Neutrophils % 80 % Lymphocytes % 11 % Monocytes % 4 % Eosinophils % 3 % Basophils % 0 % Neutrophils # 9.5 H (1.3-7.7) k/uL Lymphocytes # 1.3 (1.0-4.8) k/uL Monocytes # 0.5 (0-1.0) k/uL Eosinophils # 0.4 (0-0.7) k/uL Basophils # 0.0 (0-0.2) k/uL PT 9.3 (9.0-12.0) sec INR 0.9 (<1.2) APTT 23.5 (22.0-30.0) sec Sodium 135 L (137-145) mmol/L Potassium 3.6 (3.5-5.1) mmol/L Chloride 111 H (98-107) mmol/L Carbon Dioxide 17 L (22-30) mmol/L Anion Gap 7 mmol/L BUN 5 L (7-17) mg/dL Creatinine 0.49 L (0.52-1.04) mg/dL Est GFR (CKD-EPI)AfAm >90 (>60 ml/min/1.73 sqM) Est GFR (CKD-EPI)NonAf >90 (>60 ml/min/1.73 sqM) Glucose 88 (74-99) mg/dL Plasma Lactic Acid Javi (0.7-2.0) mmol/L Calcium 8.9 (8.4-10.2) mg/dL Magnesium 2.0 (1.6-2.3) mg/dL Total Bilirubin 0.3 (0.2-1.3) mg/dL AST 16 (14-36) U/L ALT 8 (4-34) U/L Alkaline Phosphatase 107 (38-126) U/L Troponin I (0.000-0.034) ng/mL NT-Pro-B Natriuret Pep pg/mL Total Protein 5.7 L (6.3-8.2) g/dL Albumin 3.2 L (3.5-5.0) g/dL 04/16/20 04/16/20 04/16/20 Range/Units 15:04 15:04 15:04 WBC (3.8-10.6) k/uL RBC (3.80-5.40) m/uL Hgb (11.4-16.0) gm/dL Hct (34.0-46.0) % MCV (80.0-100.0) fL MCH (25.0-35.0) pg MCHC (31.0-37.0) g/dL RDW (11.5-15.5) % Plt Count (150-450) k/uL Neutrophils % % Lymphocytes % % Monocytes % % Eosinophils % % Basophils % % Neutrophils # (1.3-7.7) k/uL Lymphocytes # (1.0-4.8) k/uL Monocytes # (0-1.0) k/uL Eosinophils # (0-0.7) k/uL Basophils # (0-0.2) k/uL PT (9.0-12.0) sec INR (<1.2) APTT (22.0-30.0) sec Sodium (137-145) mmol/L Potassium (3.5-5.1) mmol/L Chloride (98-107) mmol/L Carbon Dioxide (22-30) mmol/L Anion Gap mmol/L BUN (7-17) mg/dL Creatinine (0.52-1.04) mg/dL Est GFR (CKD-EPI)AfAm (>60 ml/min/1.73 sqM) Est GFR (CKD-EPI)NonAf (>60 ml/min/1.73 sqM) Glucose (74-99) mg/dL Plasma Lactic Acid Javi 1.2 (0.7-2.0) mmol/L Calcium (8.4-10.2) mg/dL Magnesium (1.6-2.3) mg/dL Total Bilirubin (0.2-1.3) mg/dL AST (14-36) U/L ALT (4-34) U/L Alkaline Phosphatase (38-126) U/L Troponin I <0.012 (0.000-0.034) ng/mL NT-Pro-B Natriuret Pep 109 pg/mL Total Protein (6.3-8.2) g/dL Albumin (3.5-5.0) g/dL Disposition Clinical Impression: Bronchospasm with bronchitis, acute, Viral upper respiratory illness Disposition: HOME SELF-CARE Condition: Fair Instructions (If sedation given, give patient instructions): Acute Bronchitis (ED) Additional Instructions: Please return to the emergency department with any worsening symptoms. Please quarantine yearself until coronavirus testing is completed in 48 hours. Prescriptions: Albuterol Sulfate [Proair Hfa] 1 - 2 puff INHALATION Q6HR PRN #1 inhaler PRN Reason: Wheezing Is patient prescribed a controlled substance at d/c from ED?: No Referrals: None,Stated [Primary Care Provider] - 1-2 days Kevin Jules MD [STAFF PHYSICIAN] - 1-2 days Time of Disposition: 17:41
[2020-04-16 15:27] LABS: Basophils % (A) 0 %; Eosinophils # (A) 0.4 k/uL (0-0.7); Eosinophils % (A) 3 %; HCT 41.4 % (34.0-46.0); Lymphocytes # (A) 1.3 k/uL (1.0-4.8); Lymphocytes % (A) 11 %; MCH 31.1 pg (25.0-35.0); MCHC 33.7 g/dL (31.0-37.0); MCV 92.1 fL (80.0-100.0); Mean Platelet Volume 7.7; Monocytes # (A) 0.5 k/uL (0-1.0); Monocytes % (A) 4 %; Neutrophils # (A) 9.5 k/uL (1.3-7.7); Neutrophils % (A) 80 %; Platelet Count 232 k/uL (150-450); RDW 13.5 % (11.5-15.5); WBC 11.8 k/uL (3.8-10.6)
[2020-04-16 15:38] LABS: ALT 8 U/L (4-34); AST 16 U/L (14-36); African American GFR (CKD) >90 (>60 ml/min/1.73 sqM); Albumin 3.2 g/dL (3.5-5.0); Alkaline Phosphatase 107 U/L (38-126); Anion Gap 7 mmol/L; Blood Urea Nitrogen 5 mg/dL (7-17); Calcium 8.9 mg/dL (8.4-10.2); Carbon Dioxide 17 mmol/L (22-30); Chloride 111 mmol/L (98-107); Glucose 88 mg/dL (74-99); Non-African American GFR(CKD) >90 (>60 ml/min/1.73 sqM); Potassium 3.6 mmol/L (3.5-5.1); Sodium 135 mmol/L (137-145); Total Bilirubin 0.3 mg/dL (0.2-1.3); Total Protein 5.7 g/dL (6.3-8.2)
[2020-04-16 15:40] LABS: INR 0.9 (<1.2); Partial Thromboplastin Time 23.5 sec (22.0-30.0); Prothrombin Time 9.3 sec (9.0-12.0)
--- NOTE | 2020-04-16 16:40 | US ---
EXAMINATION TYPE: US venous doppler duplex LE DATE OF EXAM: 04/16/2020 2:29 PM COMPARISON: NONE CLINICAL HISTORY: DVT. Pt states recent trip to [place] in car, SOB, 30 weeks SIDE PERFORMED: Bilateral TECHNIQUE: The lower extremity deep venous system is examined utilizing real time linear array sonog kymberly with graded compression, doppler sonography and color-flow sonography. VESSELS IMAGED: External Iliac Vein (EIV) Common Femoral Vein Deep Femoral Vein Greater Saphenous Vein * Femoral Vein Popliteal Vein Small Saphenous Vein * Proximal Calf Veins (* superficial vessels) Right Leg: Negative for DVT. There is normal flow, compressibility, vascular waveforms. Left Leg: Negative for DVT. There is normal flow, compressibility, vascular waveforms. IMPRESSION: No DVT of the bilateral lower extremities.
[2020-04-16] MEDS ORDERED: SODIUM CHLORIDE 0.9% 500 ML 500 ML IV ONE (17:12)
[2020-04-16 19:03] VITALS: BP 106/78; PULSE 103; RESP 22; TEMP 98.1
== END 2020-04-16 19:01 | disposition home or self-care (01) ==
LOC: EC 13:52
DX: O99.513 Diseases of the respiratory system complicating pregnancy, third trimester (principal); J20.9 Acute bronchitis, unspecified; J06.9 Acute upper respiratory infection, unspecified; O99.343 Other mental disorders complicating pregnancy, third trimester; F41.9 Anxiety disorder, unspecified; F31.9 Bipolar disorder, unspecified; O99.333 Smoking (tobacco) complicating pregnancy, third trimester; F17.200 Nicotine dependence, unspecified, uncomplicated; Z3A.30 30 weeks gestation of pregnancy; Z20.828 Contact with and (suspected) exposure to other viral communicable diseases; Z79.899 Other long term (current) drug therapy; Z88.0 Allergy status to penicillin; Z91.040 Latex allergy status
CPT/HCPCS: 36415; 94640; 93005; 83880; 80053; 83605; 83735; 84484; 85025; 85610; 85730; 87040; 71045; 93970; 99285; 96360; U0003

== ENCOUNTER 2020-04-25 19:30 | Outpatient (CLI) | payer OTHER ==
[2020-04-25 19:45] VITALS: RESP 16; TEMP 96.5
[2020-04-25 20:19] VITALS: BP 119/76; PULSE 105
--- NOTE | 2020-04-30 07:39 | P.MSEPDOC ---
Presenting Problems - Arrival Data Date of Arrival on Unit: 04/25/20 Time of Arrival on Unit: 19:30 Mode of Transport: Wheelchair - Complaint OB-Reason for Admission/Chief Complaint: PIH Comment: Patient sent over per Dr. Donovan for pre-eclampsia symptoms. Patient states. she has been having severe headaches and nausea "out of no where". Medical History - Information : 5 Para: 0 Term: 0 : 0 Abortions: Spontaneous or Elective: 4 Number of Living Children: 0 - Gestational Age Gestational Age by SHANNON (wks/days): 31 Weeks and 3 Days Review of Systems - Review of Systems Constitutional: No problems Breast: No problems ENT: Cough Cardiovascular: No problems Respiratory: No problems Gastrointestinal: No problems Genitourinary: No problems Musculoskeletal: No problems Neurological: No problems Skin: No problems Vital Signs - Temperature Temperature: 96.5 F Temperature Source: Temporal Artery Scan - Pulse Right Brachial Pulse Rate: 105 Pulse Assessment Method: Automatic Cuff - Respirations Respiratory Rate: 16 Oxygen Delivery Method: Room Air O2 Sat by Pulse Oximetry: 96 - Blood Pressure Right Arm Blood Pressure: 119/76 Blood Pressure Mean: 90 Blood Pressure Source: Automatic Cuff Medical Screen Scoring (Pre) - Cervical Exam Dilation: Exam Deferred Effacement: Exam Deferred - Uterine Contractions Frequency: N/A Duration: N/A Intensity: N/A - Maternal Vital Signs Maternal Temperature: N/A Maternal Blood Pressure: N/A Signs of Preeclampsia: Headache = 1, Nausea/Vomiting = 1 Maternal Respirations: N/A - Maternal Trauma Maternal Trauma: N/A - Assessment - Baby A Baseline FHR: 130 Heart Rate - NICHD Category: Category I (Normal) = 0 NST: Reactive - Total Score - Baby A Total Score - Baby A: 2 - Total Score - Baby B Total Score - Baby B: 2 - Total Score - Baby C Total Score - Baby C: 2 - Level of Risk - Baby A Level of Risk - Baby A: Low (0-5) - Level of Risk - Baby B Level of Risk - Baby B: Low (0-5) - Level of Risk - Baby C Level of Risk - Baby C: Low (0-5) Physician Notification (Pre) - Physician Notified Physician Notified Date: 04/25/20 Physician Notified Time: 19:40 New Order Received: Yes - Notification Comment Comment: RN spoke with Dr. Donovan and reported patients blood pressure of 119/76. Dr. Donovan would like patient to stay for some serial blood pressures and if they remain. normal, patient may be discharged home with instructions to take benadryl and tylenol. together to help relieve headache. NST to be completed. Patient updated on plan of. care. Patients serial blood pressures all remained WNL. Patient discharged home with pre-eclampsia warning sign sheet and clear discharge instructions to return if symptoms progressed. Patient verbalized understanding. Disposition - Disposition OB Disposition: Discharge to home Discharge Date: 04/25/20 Discharge Time: 20:20 I agree with the RN Medical Screening Exam: Yes Risk & Benefit of care provided described in d/c instruction: Yes Diagnosis: HEADACHE
== END 2020-04-25 20:25 | disposition home or self-care (01) ==
LOC: FBPOP 19:30
PROVIDERS: ATTEND Obstetrics & Gynecology
DX: O99.89 Other specified diseases and conditions complicating pregnancy, childbirth and the puerperium (principal); R51 Headache; Z3A.31 31 weeks gestation of pregnancy
CPT/HCPCS: 59025; G0463; 99213

== ENCOUNTER 2020-05-23 09:30 | Outpatient (CLI) | payer OTHER ==
[2020-05-23 10:13] LABS: Glucose,Whole Blood 114 mg/dL (75-99)
[2020-05-23 10:27] LABS: Appearance,Urine Cloudy (Clear); Bacteria,Urine Rare /hpf; Bilirubin,Urine Negative (Negative); Blood,Urine Negative (Negative); Color,Urine Yellow; Glucose,Urine (UA) Negative (Negative); Ketones,Urine Negative (Negative); Leukocyte Esterase,Urine Large (Negative); Mucus,Urine Moderate /hpf; Nitrite,Urine Negative (Negative); Protein,Urine Trace (Negative); RBC,Urine 1 /hpf (0-5); Specific Gravity,Urine 1.018 (1.001-1.035); Squamous Epithelial Cell,Urine 13 /hpf (0-4); Urobilinogen,Urine <2.0 mg/dL (<2.0); WBC,Urine 15 /hpf (0-5)
[2020-05-23 10:38] VITALS: BP 124/75; PULSE 104; RESP 18; TEMP 96.6
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
== END 2020-05-23 11:00 | disposition home or self-care (01) ==
LOC: FBPOP 09:30
PROVIDERS: ATTEND Obstetrics & Gynecology
DX: O26.93 Pregnancy related conditions, unspecified, third trimester (principal); Z3A.35 35 weeks gestation of pregnancy
CPT/HCPCS: 59025; 81001; G0463; 99213

== ENCOUNTER 2020-06-14 12:12 | Outpatient (CLI) | payer OTHER ==
[2020-06-14 13:39] VITALS: BP 119/77; PULSE 120; RESP 18; TEMP 96.5
--- NOTE | 2020-06-14 15:01 | P.MSEPDOC ---
Presenting Problems - Arrival Data Date of Arrival on Unit: 06/14/20 Time of Arrival on Unit: 12:15 Mode of Transport: Ambulatory - Complaint OB-Reason for Admission/Chief Complaint: Decreased Movement Comment: pt not feeling baby move since last night states usually very active Medical History - Information : 5 Para: 0 Term: 0 : 0 Abortions: Spontaneous or Elective: 0 Number of Living Children: 0 - Gestational Age Gestational Age by SHANNON (wks/days): 38 Weeks and 4 Days Review of Systems - Review of Systems Constitutional: No problems Breast: No problems ENT: No problems Cardiovascular: No problems Respiratory: No problems Gastrointestinal: No problems Genitourinary: No problems Musculoskeletal: No problems Neurological: No problems Skin: No problems Vital Signs - Temperature Temperature: 96.5 F Temperature Source: Temporal Artery Scan - Pulse Right Radial Pulse Rate: 120 Pulse Assessment Method: Pulse Oximetry - Respirations Respiratory Rate: 18 Oxygen Delivery Method: Room Air O2 Sat by Pulse Oximetry: 98 - Blood Pressure Right Arm Blood Pressure: 119/77 Blood Pressure Mean: 91 Blood Pressure Source: Automatic Cuff Medical Screen Scoring (Pre) - Cervical Exam Dilation: Exam Deferred Effacement: Exam Deferred Membranes: Intact - Uterine Contractions Frequency: N/A Duration: N/A Intensity: N/A - Maternal Vital Signs Maternal Temperature: N/A Maternal Blood Pressure: N/A Signs of Preeclampsia: N/A Maternal Respirations: N/A - Maternal Trauma Maternal Trauma: N/A - Assessment - Baby A Baseline FHR: 130 Heart Rate - NICHD Category: Category I (Normal) = 0 NST: Reactive Position: N/A Station: N/A - Total Score - Baby A Total Score - Baby A: 0 - Total Score - Baby B Total Score - Baby B: 0 - Total Score - Baby C Total Score - Baby C: 0 - Level of Risk - Baby A Level of Risk - Baby A: Low (0-5) - Level of Risk - Baby B Level of Risk - Baby B: Low (0-5) - Level of Risk - Baby C Level of Risk - Baby C: Low (0-5) Physician Notification (Pre) - Physician Notified Physician Notified Date: 06/14/20 Physician Notified Time: 12:45 New Order Received: Yes (discharge home with instructions) - Notification Comment Comment: kick counts to be done daily. pt feeling baby now. drink lots of water. to return in problems or conserns Disposition - Disposition OB Disposition: Discharge to home, Written follow up instructions reviewed Discharge Date: 06/14/20 Discharge Time: 13:15 I agree with the RN Medical Screening Exam: Yes Risk & Benefit of care provided described in d/c instruction: Yes Diagnosis: DECREASED MOVEMENTS, THIRD TRIMESTER, UNSP
== END 2020-06-14 13:15 | disposition home or self-care (01) ==
LOC: FBPOP 12:12
PROVIDERS: ATTEND Obstetrics & Gynecology
DX: O36.8130 Decreased fetal movements, third trimester, not applicable or unspecified (principal); Z3A.38 38 weeks gestation of pregnancy
CPT/HCPCS: 59025; G0463; 99213

== ENCOUNTER 2020-06-22 05:50 | Inpatient (IN) | payer OTHER ==
[2020-06-22] MEDS: LACTATED RINGERS 1,000 ML IV SCH ×3 (06:02→17:25)
[2020-06-22] MEDS ORDERED: LIDOCAINE 0.5% (PF) 5 MG/ML (50 ML SDV) SQ PRN (06:04)
[2020-06-22] MEDS ORDERED: TERBUTALINE 1 MG/ML VIAL SQ PRN (06:04)
[2020-06-22] MEDS ORDERED: METHYLERGONOVINE 0.2 MG/ML 1 ML AMP IM PRN (06:04)
[2020-06-22] MEDS ORDERED: OXYTOCIN 10 UNIT/ML 1 ML VIAL IM PRN (06:04)
[2020-06-22] MEDS ORDERED: CARBOPROST TROMETHAMINE 250 MCG/ML 1 ML AMP IM PRN (06:04)
[2020-06-22] MEDS ORDERED: OXYTOCIN 30 UNITS/500 ML NS 30 UNIT in SALINE 1 500ML.BAG IV SCH (06:15)
[2020-06-22] MEDS ORDERED: LACTATED RINGERS 1,000 ML IV SCH (06:15)
[2020-06-22 06:41] LABS: Basophils % (A) 0 %; Eosinophils # (A) 0.3 k/uL (0-0.7); Eosinophils % (A) 3 %; HCT 42.9 % (34.0-46.0); HGB 14.3 gm/dL (11.4-16.0); Lymphocytes # (A) 2.8 k/uL (1.0-4.8); Lymphocytes % (A) 23 %; MCH 31.6 pg (25.0-35.0); MCHC 33.3 g/dL (31.0-37.0); MCV 94.8 fL (80.0-100.0); Mean Platelet Volume 7.7; Monocytes # (A) 0.7 k/uL (0-1.0); Monocytes % (A) 6 %; Neutrophils % (A) 67 %; Platelet Count 282 k/uL (150-450); RBC 4.52 m/uL (3.80-5.40); RDW 13.7 % (11.5-15.5)
[2020-06-22] MEDS: BUTORPHANOL 1 MG/ML 1 ML VIAL IV PRN ×2 (13:32→15:52)
[2020-06-22] MEDS ORDERED: ROPIVACAINE 100 MG, fentaNYL (PF) 200 MCG in SODIUM CHLORIDE 0.9% 76 ML EPIDURAL ONE (22:00)
[2020-06-23] MEDS: LACTATED RINGERS 1,000 ML IV SCH (00:22)
--- NOTE | 2020-06-23 02:39 | P.HPOB ---
History of Present Illness H&P Date: 06/22/20 Chief Complaint: Induction of labor 19-year-old presents at 39 weeks and 6 days for induction of labor. Her cervix is 1-2 cm dilated, 70% effaced, -2 station. She is gianna irregularly. heart tones 135 with moderate variability and reactive. Review of Systems All systems: negative Constitutional: Denies chills, Denies fever Eyes: denies blurred vision, denies pain Ears, nose, mouth and throat: Denies headache, Denies sore throat Cardiovascular: Denies chest pain, Denies shortness of breath Respiratory: Denies cough Gastrointestinal: Denies abdominal pain, Denies diarrhea, Denies nausea, Denies vomiting Genitourinary: Denies dysuria, Denies hematuria Musculoskeletal: Denies myalgias Integumentary: Denies pruritus, Denies rash Neurological: Denies numbness, Denies weakness Psychiatric: Denies anxiety, Denies depression Endocrine: Denies fatigue, Denies weight change 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 Blood type is O+, abs negative, rubella immune, placed B-, GBS negative, RPR nonreactive. History of Any Multi-Drug Resistant Organisms: None Reported Past Surgical History: Orthopedic Surgery Additional Past Surgical History / Comment(s): right knee surgery at age 1 and right hip surgery at 12 Past Anesthesia/Blood Transfusion Reactions: No Reported Reaction Past Psychological History: Anxiety, Bipolar, Depression Smoking Status: Current every day smoker Past Alcohol Use History: None Reported Past Drug Use History: None Reported, Marijuana - Past Family History Mother Family Medical History: Diabetes Mellitus Medications and Allergies Home Medications Medication Instructions Recorded Confirmed Type Pnv,Calcium 72/Iron/Folic Acid 1 tab PO DAILY 01/16/20 06/22/20 History [ Plus Tablet] Allergies Allergy/AdvReac Type Severity Reaction Status Date / Time latex Allergy Rash/Hives Verified 06/22/20 06:04 Penicillins Allergy Swelling Verified 06/22/20 06:04 Exam Osteopathic Statement: *. No significant issues noted on an osteopathic structural exam other than those noted in the History and Physical/Consult. Vital Signs Temp Pulse Resp BP Pulse Ox 06/22/20 06:10 96.4 F L 125 H 16 116/81 96 Intake and Output 06/22/20 06/22/20 06/23/20 14:59 22:59 06:59 Output Total 325 Balance -325 Output: Urine 325 Other: # Voids 3 Heart: Regular rate and rhythm Lungs: Clear to auscultation bilaterally Abdomen: Soft, nontender Extremities: Negative Homans sign Results Result Diagrams: 06/22/20 06:02 Abnormal Lab Results - Last 24 Hours (Table) 06/22/20 Range/Units 06:02 WBC 12.0 H (3.8-10.6) k/uL Neutrophils # 8.0 H (1.3-7.7) k/uL Assessment and Plan (1) Normal labor Current Visit: Yes Status: Acute Code(s): O80 - ENCOUNTER FOR FULL-TERM UNCOMPLICATED DELIVERY; Z37.9 - OUTCOME OF DELIVERY, UNSPECIFIED SNOMED Code(s): 01942000 Plan: 1. Admit to family place 2. Pitocin and amniotomy for induction of labor 3. Anticipate normal vaginal delivery
--- NOTE | 2020-06-23 02:41 | P.PROBDLV ---
Vaginal Delivery Note - . Vaginal Delivery Note: 19-year-old presents at 39 weeks and 6 days for induction of labor. Her cervix is 1-2 cm dilated, 70% effaced, -2 station. She is gianna irregularly. heart tones 135 with moderate variability and reactive. Pitocin was started. Amniotomy performed at 6:46 AM and clear fluid noted. heart tones remained category 1. She progressed slowly throughout the day. She had an epidural when she was about 4 cm dilated in the evening on the same day. At 10 PM when she was 6-1/2 cm dilated, 100% and 0 station, we started IV antibiotic for prolonged rupture. heart tones remained category 1. Her cervix is completely dilated at 1:30 AM. She pushed, and delivered a viable male infant over intact perineum under epidural anesthesia at 2:16 AM. Head delivered OA, nuchal cord 1 easily reduced, anterior shoulder delivered gentle downward guidance followed by posterior shoulder and rest of body. Nose and mouth bulb suctioned, cord clamped and cut, infant placed mother's abdomen. Apgars 9, 9, weight 6 lbs. 7 oz. Placenta delivered spon taneously, intact with three-vessel cord at 2:19 AM. Vagina, cervix, perineum inspected. Left labial laceration was repaired with 3-0 Vicryl. Estimated blood loss 165 mL. Mother and baby in stable condition.
[2020-06-23] MEDS ORDERED: BENZOCAINE/MENTHOL SPRAY 1 GM/SPRAY AEROSOL TOPICAL PRN (02:42)
[2020-06-23] MEDS ORDERED: ZOLPIDEM 5 MG TAB PO PRN (02:42)
[2020-06-23] MEDS ORDERED: diphenhydrAMINE 50 MG CAP PO PRN (02:42)
[2020-06-23] MEDS ORDERED: HYDROCORTISONE 2.5% RECTAL CREAM 30 GM TUBE RECTAL PRN (02:42)
[2020-06-23] MEDS ORDERED: diphenhydrAMINE 50 MG/ML 1 ML VIAL IVP PRN ×2 (02:42)
[2020-06-23] MEDS ORDERED: LANOLIN CREAM 5 GM TUBE TOPICAL PRN (02:42)
[2020-06-23] MEDS ORDERED: diphenhydrAMINE 25 MG CAP PO PRN (02:42)
[2020-06-23] MEDS ORDERED: SIMETHICONE 80 MG CHEWABLE PO PRN (02:42)
[2020-06-23] MEDS ORDERED: OXYTOCIN 20 UNITS/1000 ML NS 1,000 ML IV SCH (02:45)
[2020-06-23] MEDS: IBUPROFEN 600 MG TAB PO PRN ×3 (03:47→23:13)
[2020-06-23] MEDS: ACETAMINOPHEN TAB 325 MG TAB PO PRN ×2 (07:50→20:30)
[2020-06-23] MEDS: SENNOSIDES-DOCUSATE SODIUM 1 EACH TAB PO SCH ×2 (07:51→19:43)
[2020-06-24] MEDS: IBUPROFEN 600 MG TAB PO PRN (06:01)
[2020-06-24 06:59] LABS: Basophils % (A) 0 %; Eosinophils # (A) 0.4 k/uL (0-0.7); Eosinophils % (A) 4 %; HCT 39.3 % (34.0-46.0); HGB 13.1 gm/dL (11.4-16.0); Lymphocytes # (A) 2.9 k/uL (1.0-4.8); Lymphocytes % (A) 25 %; MCH 32.1 pg (25.0-35.0); MCHC 33.4 g/dL (31.0-37.0); Mean Platelet Volume 7.8; Monocytes # (A) 0.4 k/uL (0-1.0); Monocytes % (A) 4 %; Neutrophils # (A) 7.5 k/uL (1.3-7.7); Neutrophils % (A) 66 %; Platelet Count 222 k/uL (150-450); RBC 4.09 m/uL (3.80-5.40); RDW 13.2 % (11.5-15.5); WBC 11.4 k/uL (3.8-10.6)
[2020-06-24] MEDS: SENNOSIDES-DOCUSATE SODIUM 1 EACH TAB PO SCH (08:45)
[2020-06-24 09:01] VITALS: BP 99/56; PULSE 72; RESP 16; TEMP 97.9
--- NOTE | 2020-06-24 09:10 | P.DS ---
Providers Date of admission: 06/22/20 05:50 Expected date of discharge: 06/24/20 Attending physician: Patsy Donovan Primary care physician: Stated None - Discharge Diagnosis(es) (1) Normal labor Current Visit: Yes Status: Resolved (2) Normal vaginal delivery Current Visit: Yes Status: Acute Hospital Course: Patient presented for induction of labor. She underwent a normal vaginal delivery. She denies nausea, vomiting, chest pain, shortness of breath or any calf pain. She'll be discharged home day #1 in stable condition to follow-up with me in 6 weeks. Plan - Discharge Summary New Discharge Prescriptions: New Ibuprofen [Motrin] 600 mg PO Q6HR PRN #30 tab PRN Reason: Mild Pain Or Fever >= 100.5 No Action Pnv,Calcium 72/Iron/Folic Acid [ Plus Tablet] 1 tab PO DAILY Discharge Medication List Pnv,Calcium 72/Iron/Folic Acid [ Plus Tablet] 1 tab PO DAILY 01/16/20 [History] Ibuprofen [Motrin] 600 mg PO Q6HR PRN #30 tab 06/24/20 [Rx] Follow up Appointment(s)/Referral(s): Patsy Donovan DO [Doctor of Osteopathic Medicine] - 6 Weeks Discharge Disposition: HOME SELF-CARE
== END 2020-06-24 15:39 | disposition home or self-care (01) | DRG 807 ==
LOC: 4FBP 05:50
PROVIDERS: ADMIT Obstetrics & Gynecology; ATTEND Obstetrics & Gynecology
PROC: 3E033VJ Introduction of Other Hormone into Peripheral Vein, Percutaneous Approach (ICD-10-PCS; 2020-06-22)
PROC: 10907ZC Drainage of Amniotic Fluid, Therapeutic from Products of Conception, Via Natural or Artificial Opening (ICD-10-PCS; 2020-06-22)
PROC: 3E0R3BZ Introduction of Anesthetic Agent into Spinal Canal, Percutaneous Approach (ICD-10-PCS; 2020-06-22)
PROC: 10E0XZZ Delivery of Products of Conception, External Approach (ICD-10-PCS; principal; 2020-06-23)
PROC: 0HQ9XZZ Repair Perineum Skin, External Approach (ICD-10-PCS; 2020-06-23)
DX: O99.344 Other mental disorders complicating childbirth (principal); Z37.0 Single live birth; O99.334 Smoking (tobacco) complicating childbirth; F31.9 Bipolar disorder, unspecified; F41.9 Anxiety disorder, unspecified; F17.200 Nicotine dependence, unspecified, uncomplicated; O69.81X0 Labor and delivery complicated by cord around neck, without compression, not applicable or unspecified; O70.0 First degree perineal laceration during delivery; Z79.899 Other long term (current) drug therapy; Z3A.39 39 weeks gestation of pregnancy; Z88.0 Allergy status to penicillin; Z91.040 Latex allergy status; Z83.3 Family history of diabetes mellitus
CPT/HCPCS: 85025; 86850; 86900; 86901

== ENCOUNTER 2020-07-22 04:04 | Emergency (ER) | payer OTHER ==
[2020-07-22 04:19] VITALS: BP 106/69; PULSE 77; RESP 16; TEMP 97.7
--- NOTE | 2020-07-22 04:51 | ED ---
General Adult HPI - General Chief complaint: Upper Respiratory Infection Stated complaint: Sore Throat Time Seen by Provider: 07/22/20 04:51 Source: patient Mode of arrival: ambulatory Limitations: no limitations - History of Present Illness Initial comments: Connie is a 20-year-old female who is currently 29 days . She presents the ER today for evaluation of sore throat and body aches. Patient reports that she's just not feeling great for the past 2-3 days. She's been eating and drinking okay checking her temperature home not had any fevers. - Related Data Home Medications Medication Instructions Recorded Confirmed Pnv,Calcium 72/Iron/Folic Acid 1 tab PO DAILY 01/16/20 06/22/20 [ Plus Tablet] Previous Rx's Medication Instructions Recorded Ibuprofen [Motrin] 600 mg PO Q6HR PRN #30 tab 06/24/20 Allergies Allergy/AdvReac Type Severity Reaction Status Date / Time latex Allergy Rash/Hives Verified 07/22/20 04:19 Penicillins Allergy Swelling Verified 07/22/20 04:19 Review of Systems ROS Statement: Those systems with pertinent positive or pertinent negative responses have been documented in the HPI. ROS Other: All systems not noted in ROS Statement are negative. 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 Blood type is O+, abs negative, rubella immune, placed B-, GBS negative, RPR nonreactive. History of Any Multi-Drug Resistant Organisms: None Reported Past Surgical History: Orthopedic Surgery Additional Past Surgical History / Comment(s): right knee surgery at age 1 and right hip surgery at 12 Past Anesthesia/Blood Transfusion Reactions: No Reported Reaction Past Psychological History: Anxiety, Bipolar, Depression Smoking Status: Current every day smoker Past Alcohol Use History: Occasional Past Drug Use History: None Reported - Past Family History Mother Family Medical History: Diabetes Mellitus General Exam - General Exam Comments Initial Comments: Physical Exam GENERAL: Patient is well-developed and well-nourished. Patient is nontoxic and well-hydrated and is in no distress. HENT: Normocephalic, Atraumatic. posterior oropharynx is erythematous there is some postnasal drip no exudates EYES: PERRL, EOMI PULMONARY: Unlabored respirations. CARDIOVASCULAR: RRR Warm and well perfused extremities ABDOMEN: Non-distended SKIN: No rashes or bruising : Deferred NEUROLOGIC: Alert and oriented Normal speech Normal gait MUSCULOSKELETAL: Moving all extremities with no apparent injury PSYCHIATRIC: No SI/HI Limitations: no limitations Course Vital Signs 07/22/20 04:15 Temperature 97.7 F Pulse Rate 77 Respiratory 16 Rate Blood Pressure 106/69 O2 Sat by Pulse 98 Oximetry Medical Decision Making - Medical Decision Making Patient was seen and evaluated history was obtained from patient patient has a runny nose and body aches for couple days as well as a sore throat. Patient had COVID 19 earlier this year does not feel like she has COVID does not want to be tested is comfortable with plan for discharge home without any testing, just wanted and her throat looked at as she is caring for her baby and didn't want to get him sick. Disposition Clinical Impression: Flu-like symptoms Disposition: HOME SELF-CARE Condition: Stable Instructions (If sedation given, give patient instructions): Upper Respiratory Infection (ED) Is patient prescribed a controlled substance at d/c from ED?: No Referrals: None,Stated [Primary Care Provider] - 1-2 days
== END 2020-07-22 05:15 | disposition home or self-care (01) ==
LOC: EC 04:04
DX: R52 Pain, unspecified (principal); R09.89 Other specified symptoms and signs involving the circulatory and respiratory systems; F17.200 Nicotine dependence, unspecified, uncomplicated; Z88.0 Allergy status to penicillin; Z91.040 Latex allergy status; Z86.19 Personal history of other infectious and parasitic diseases
CPT/HCPCS: 99282

== ENCOUNTER 2020-10-19 21:56 | Emergency (ER) | payer OTHER ==
[2020-10-19 22:06] VITALS: BP 121/80; PULSE 95; RESP 18; TEMP 98.6
[2020-10-19] MEDS ORDERED: FAMOTIDINE 20 MG TAB PO STA (22:33)
[2020-10-19] MEDS ORDERED: diphenhydrAMINE 25 MG CAP PO STA (22:33)
--- NOTE | 2020-10-19 22:51 | ED ---
Skin/Abscess/FB HPI - General Chief complaint: Skin/Abscess/Foreign Body Stated complaint: Poss Allergic Reaction to hair dye Time Seen by Provider: 10/19/20 22:19 Source: patient Limitations: no limitations - History of Present Illness Initial comments: 20yo female presenting for cc of rash on ears, neck scalp after applying hair dye at home. Patient states that she [id number] here home 4 days ago she states she's been using the same box knife for years. He states that she has seen her primary care as well as an urgent care and was told that she is having a ALLERGIC reaction. She states she believes this is more so a chemical burn she states it is very itchy. Patient denies fevers the tongue swelling difficulty breathing and wheezing diarrhea fevers. Patient states she is currently 6 weeks has been taking Benadryl which she states is helping minimally. Patient states she took Benadryl over 8 hours ago. Patient denies additional complaints. Appears well nontoxic on arrival in no acute distress. - Related Data Home Medications Medication Instructions Recorded Confirmed Pnv,Calcium 72/Iron/Folic Acid 1 tab PO DAILY 01/16/20 06/22/20 [ Plus Tablet] Previous Rx's Medication Instructions Recorded Ibuprofen [Motrin] 600 mg PO Q6HR PRN #30 tab 06/24/20 Cephalexin [Keflex] 500 mg PO Q8HR 5 Days #15 cap 10/19/20 Famotidine [Pepcid] 20 mg PO DAILY 3 Days #3 tablet 10/19/20 Allergies Allergy/AdvReac Type Severity Reaction Status Date / Time latex Allergy Rash/Hives Verified 10/19/20 22:06 Penicillins Allergy Swelling Verified 10/19/20 22:06 Review of Systems ROS Statement: Those systems with pertinent positive or pertinent negative responses have been documented in the HPI. ROS Other: All systems not noted in ROS Statement are negative. 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 Blood type is O+, abs negative, rubella immune, placed B-, GBS negative, RPR nonreactive. History of Any Multi-Drug Resistant Organisms: None Reported Past Surgical History: Orthopedic Surgery Additional Past Surgical History / Comment(s): right knee surgery at age 1 and right hip surgery at 12 Past Anesthesia/Blood Transfusion Reactions: No Reported Reaction Past Psychological History: Anxiety, Bipolar, Depression Smoking Status: Current every day smoker Past Alcohol Use History: Occasional Past Drug Use History: None Reported - Past Family History Mother Family Medical History: Diabetes Mellitus General Exam - General Exam Comments Initial Comments: General: The patient is awake and alert, in no distress, and does not appear acutely ill. Eye: Pupils are equal, round and reactive to light, extra-ocular movements are intact. No nystagmus. There is normal conjunctiva bilaterally. No signs of icterus. Ears, nose, mouth and throat: There are moist mucous membranes and no oral lesions. NO lip or tongue swelling Neck: The neck is supple, there is no tenderness or JVD. some anterior cervical lymphadenopathy. Cardiovascular: There is a regular rate and rhythm. No murmur, rub or gallop is appreciated. Respiratory: Lungs are clear to auscultation, respirations are non-labored, breath sounds are equal. No wheezes, stridor, rales, or rhonchi. Gastrointestinal: [Soft, non-distended, non-tender abdomen without masses or organomegaly noted. There is no rebound or guarding present. No CVA tenderness. Bowel sounds are unremarkable.] Musculoskeletal: Normal ROM, no tenderness. Strength 5/5. Sensation intact. Pulses equal bilaterally 2+. Neurological: A&O x 3. CN II-XII intact grossly, There are no obvious motor or sensory deficits. Coordination appears grossly intact. Speech is normal. Skin: Skin is warm and dry. linear erythematous, small blisters on ears posteriorly b/l, neck, forehead near hair line. no diffuse redness/warmth. no drainage. Psychiatric: Cooperative, appropriate mood & affect, normal judgment. Limitations: no limitations Course Vital Signs 10/19/20 22:02 Temperature 98.6 F Pulse Rate 95 Respiratory 18 Rate Blood Pressure 121/80 O2 Sat by Pulse 97 Oximetry Medical Decision Making - Medical Decision Making contact dermatitis on exam, cannot r/o developing secondary infection. pt afebrile. nontoxic appearing. pt will be treated symptomatically and discharged on oral abx. pateint agreeable to this care plan and discharge. Dr. Hamilton agreeable to care plan and discharge. Disposition Clinical Impression: Contact dermatitis Disposition: HOME SELF-CARE Condition: Good Instructions (If sedation given, give patient instructions): Contact Dermatitis (ED) Additional Instructions: Please use medication as discussed. Please follow-up with family doctor in the next 2 days.. Please return to emergency room if the symptoms increase or worsen or for any other concerns. Prescriptions: Cephalexin [Keflex] 500 mg PO Q8HR 5 Days #15 cap Famotidine [Pepcid] 20 mg PO DAILY 3 Days #3 tablet Is patient prescribed a controlled substance at d/c from ED?: No Referrals: Jaime Perrin DO [Primary Care Provider] - 1-2 days Time of Disposition: 22:56
== END 2020-10-19 23:35 | disposition home or self-care (01) ==
LOC: EC 21:56
DX: O99.711 Diseases of the skin and subcutaneous tissue complicating pregnancy, first trimester (principal); L25.9 Unspecified contact dermatitis, unspecified cause; O99.331 Smoking (tobacco) complicating pregnancy, first trimester; F17.200 Nicotine dependence, unspecified, uncomplicated; Z3A.01 Less than 8 weeks gestation of pregnancy; Z88.0 Allergy status to penicillin; Z91.040 Latex allergy status
CPT/HCPCS: 99282

== ENCOUNTER → 2020-11-05 | Outpatient (CLI) | payer OTHER ==
--- NOTE | 2020-11-05 15:25 | US ---
EXAMINATION TYPE: Ultrasound OB <= 14 week fetus DATE OF EXAM: 11/05/2020 11:28 AM COMPARISON: NONE CLINICAL HISTORY: 20-year-old female O46.91 BLEEDING/SPOTTING. Grafting and spotting for a few days, A5 EXAM PERFORMED: OBTA FINDINGS: EXAM MEASUREMENTS: GESTATIONAL AGE / DATING Physician Established: Not yet established Dates by LMP: (8 weeks/4 days) EDC: 06/13/2021 Dates by First Scan: No previous this is first scan Dates by Current Scan for: ( 8 weeks/0 days) EDC: 06/17/2021 MATERNAL ANATOMY Uterus: 9.4 x 8.0 x 6.5cm Right Ovary: 4.9 x 2.7 x 2.6cm Left Ovary: not seen due to bowel gas Post CDS / Adnexa: wnl Presence of free fluid: no Presence of corpus luteal cyst: right ovary = 2.6cm Presence of subchorionic bleed: no GESTATION / SURVEY CRL: 1.6cm (8 weeks/0 days) MSD: wnl Yolk Sac (normal less than 6mm): 0.3cm Heart Rate: 156 bpm Rhythm: Normal IUP: Viable IUP Date of LMP: 09/06/2020 IMPRESSION: 1. Single live intrauterine with estimated gestational age of 8 weeks 4 days by LMP. Curren t ultrasound biometry is slightly smaller at 8 weeks 0 days. 2. Complete survey recommended at 18-20 weeks.
== END ==
LOC: RADUSWWP 11:04
PROVIDERS: ATTEND Obstetrics & Gynecology
DX: O26.851 Spotting complicating pregnancy, first trimester (principal); Z3A.08 8 weeks gestation of pregnancy
CPT/HCPCS: 76801

== ENCOUNTER 2021-01-18 21:07 | Emergency (ER) | payer OTHER ==
[2021-01-18 21:12] VITALS: TEMP 98.1
[2021-01-18] MEDS ORDERED: SODIUM CHLORIDE 0.9% 1,000 ML IV ONE (21:29)
[2021-01-18 21:56] LABS: Basophils % (A) 0 %; Eosinophils # (A) 0.2 k/uL (0-0.7); Eosinophils % (A) 2 %; HCT 36.9 % (34.0-46.0); HGB 13.5 gm/dL (11.4-16.0); Lymphocytes # (A) 2.8 k/uL (1.0-4.8); Lymphocytes % (A) 27 %; MCH 32.8 pg (25.0-35.0); MCHC 36.6 g/dL (31.0-37.0); MCV 89.8 fL (80.0-100.0); Mean Platelet Volume 6.9; Monocytes # (A) 0.5 k/uL (0-1.0); Monocytes % (A) 4 %; Neutrophils # (A) 6.9 k/uL (1.3-7.7); Neutrophils % (A) 66 %; Platelet Count 267 k/uL (150-450); RBC 4.11 m/uL (3.80-5.40); RDW 14.9 % (11.5-15.5); WBC 10.6 k/uL (3.8-10.6)
--- NOTE | 2021-01-18 22:03 | ED ---
Abdominal Pain HPI - General Chief Complaint: Abdominal Pain Stated Complaint: Dizziness,cramps 19 weeks Time Seen by Provider: 01/18/21 21:25 Source: patient Mode of arrival: ambulatory Limitations: no limitations - History of Present Illness Initial Comments: 20yo female presenting today for cc of abdominal cramping. Patient states the past 2 days she has had abdominal cramping that radiates to her back. Patient states it feels like contractions. Patient denies vaginal bleeding. Patient states she has had headache on and off for the past few days but states that she recently stopped caffeine and the headaches began shortly after. Patient denies any vision changes, nausea, vomiting, chest pain, dyspnea. She states she feels lightheaded at time. Denies extremity swelling. Patient on arrival appears well nontoxic in no acute distress. BP normal on arrival. - Related Data Home Medications Medication Instructions Recorded Confirmed Pnv,Calcium 72/Iron/Folic Acid 1 tab PO DAILY 01/16/20 01/18/21 [ Plus Tablet] Previous Rx's Medication Instructions Recorded Cephalexin [Keflex] 500 mg PO Q6HR 7 Days #28 cap 01/18/21 Allergies Allergy/AdvReac Type Severity Reaction Status Date / Time latex Allergy Rash/Hives Verified 01/18/21 21:40 Penicillins Allergy Swelling Verified 01/18/21 21:40 Review of Systems ROS Statement: Those systems with pertinent positive or pertinent negative responses have been documented in the HPI. ROS Other: All systems not noted in ROS Statement are negative. 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 Blood type is O+, abs negative, rubella immune, placed B-, GBS negative, RPR nonreactive. History of Any Multi-Drug Resistant Organisms: None Reported Past Surgical History: Orthopedic Surgery Additional Past Surgical History / Comment(s): right knee surgery at age 1 and right hip surgery at 12 Past Anesthesia/Blood Transfusion Reactions: No Reported Reaction Past Psychological History: Anxiety, Bipolar, Depression Smoking Status: Current every day smoker Past Alcohol Use History: Occasional Past Drug Use History: None Reported - Past Family History Mother Family Medical History: Diabetes Mellitus General Exam - General Exam Comments Initial Comments: General: The patient is awake and alert, in no distress Eye: Pupils are equal, round and reactive to light, extra-ocular movements are intact. No nystagmus. There is normal conjunctiva bilaterally. No signs of icterus. Ears, nose, mouth and throat: There are moist mucous membranes and no oral lesions. Neck: The neck is supple, there is no tenderness or JVD. Cardiovascular: There is a regular rate and rhythm. No murmur, rub or gallop is appreciated. Respiratory: Lungs are clear to auscultation, respirations are non-labored, breath sounds are equal. No wheezes, stridor, rales, or rhonchi. Gastrointestinal: Soft, superpubic tenderness to palpation of the abdomen, abdomen without masses. There is no rebound or guarding present. No CVA tenderness. Musculoskeletal: Normal ROM, no tenderness. Strength 5/5. Sensation intact. Radial and DP pulses equal bilaterally 2+. Neurological: A&O x 3. CN II-XII intact grossly, There are no obvious motor or sensory deficits. Coordination appears grossly intact. Speech is normal. Skin: Skin is warm and dry and no rashes or lesions are noted. Psychiatric: Cooperative, appropriate mood & affect, normal judgment. Limitations: no limitations Course Vital Signs 01/18/21 21:10 Temperature 98.1 F Pulse Rate 93 Respiratory 18 Rate Blood Pressure 100/66 O2 Sat by Pulse 100 Oximetry - Reevaluation(s) Reevaluation #1: 01/19/21 00:03 refused pelvic adamantly Medical Decision Making - Medical Decision Making 20-year-old female presenting for abdominal cramping and . History of frequent UTIs. Patient has findings and urinalysis concerning for infection. No leukocytosis no fevers no CVA tenderness. Patient has suprapubic tenderness all of which correlates clinically patient does not appear to have symptoms of pyelonephritis. Patient adamantly refused pelvic examination despite the advantages that were discussed including is 9 hours. Patient's age his appointment on Thursday and would like to go home right now. At this afternoon discussed the case with attending provider we feel patient is stable for discharge with outpatient follow-up on Thursday, return for fevers/worsening symptoms pt previously tolerated keflex/cephalosporins and is aware of the risk of cross reaction (PCN allergy) - Lab Data Result diagrams: 01/18/21 21:37 01/18/21 21:37 Lab Results 05/01/18/21 01/18/21 Range/Units 21:37 21:37 23:02 WBC 10.6 (3.8-10.6) k/uL RBC 4.11 (3.80-5.40) m/uL Hgb 13.5 (11.4-16.0) gm/dL Hct 36.9 (34.0-46.0) % MCV 89.8 (80.0-100.0) fL MCH 32.8 (25.0-35.0) pg MCHC 36.6 (31.0-37.0) g/dL RDW 14.9 (11.5-15.5) % Plt Count 267 (150-450) k/uL MPV 6.9 Neutrophils % 66 % Lymphocytes % 27 % Monocytes % 4 % Eosinophils % 2 % Basophils % 0 % Neutrophils # 6.9 (1.3-7.7) k/uL Lymphocytes # 2.8 (1.0-4.8) k/uL Monocytes # 0.5 (0-1.0) k/uL Eosinophils # 0.2 (0-0.7) k/uL Basophils # 0.0 (0-0.2) k/uL Sodium 133 L (137-145) mmol/L Potassium 3.8 (3.5-5.1) mmol/L Chloride 110 H (98-107) mmol/L Carbon Dioxide 17 L (22-30) mmol/L Anion Gap 6 mmol/L BUN 5 L (7-17) mg/dL Creatinine 0.52 (0.52-1.04) mg/dL Est GFR (CKD-EPI)AfAm >90 (>60 ml/min/1.73 sqM) Est GFR (CKD-EPI)NonAf >90 (>60 ml/min/1.73 sqM) Glucose 79 (74-99) mg/dL Calcium 9.3 (8.4-10.2) mg/dL Total Bilirubin 0.4 (0.2-1.3) mg/dL AST 22 (14-36) U/L ALT 9 (4-34) U/L Alkaline Phosphatase 67 (38-126) U/L Total Protein 6.2 L (6.3-8.2) g/dL Albumin 3.6 (3.5-5.0) g/dL Urine Color Light Yellow Urine Appearance Cloudy H (Clear) Urine pH 6.5 (5.0-8.0) Ur Specific [place] 1.009 (1.001-1.035) Urine Protein Negative (Negative) Urine Glucose (UA) Negative (Negative) Urine Ketones Negative (Negative) Urine Blood Negative (Negative) Urine Nitrite Negative (Negative) Urine Bilirubin Negative (Negative) Urine Urobilinogen <2.0 (<2.0) mg/dL Ur Leukocyte Esterase Large H (Negative) Urine RBC 6 H (0-5) /hpf Urine WBC 39 H (0-5) /hpf Ur Squamous Epith Cells 5 H (0-4) /hpf Urine Bacteria Occasional H (None) /hpf Urine Mucus Occasional H (None) /hpf Disposition Clinical Impression: Abdominal cramping, UTI (urinary tract infection) Disposition: HOME SELF-CARE Condition: Good Instructions (If sedation given, give patient instructions): Urinary Tract Infection in (ED) Additional Instructions: Please use medication as discussed. Please follow-up with family doctor in the next 2 days. Please return to emergency room if the symptoms increase or worsen or for any other concerns. Prescriptions: Cephalexin [Keflex] 500 mg PO Q6HR 7 Days #28 cap Is patient prescribed a controlled substance at d/c from ED?: No Referrals: None,Stated [Primary Care Provider] - 1-2 days Patsy Donovan DO [Doctor of Osteopathic Medicine] - 1-2 days Time of Disposition: 00:02
--- NOTE | 2021-01-18 22:14 | US ---
EXAMINATION TYPE: US OB >= 14 wk fetus DATE OF EXAM: 01/18/2021 COMPARISON: 11/05/2020 CLINICAL HISTORY: 19 weeks and crampingcramping within right adnexa for 2 days, no bleeding, A5 TECHNIQUE: OBTA GESTATIONAL AGE / DATING Physician Established: (18 weeks/4 days) EDC: 06/17/2021 Dates by LMP: (19 weeks/1 days) EDC: 06/13/2021 Dates by First Scan: (18 weeks/4 days) EDC: 06/17/2021 Dates by Current Scan: (19 weeks/1 days) EDC: 06/13/2021 SURVEY IUP: Single PLACENTA: Posterior PREVIA: No Previa JAMES: 17.9 cm Normal CERVICAL LENGTH (transabdominal: norm > 3.0cm): 3.4 cm BIOMETRY PRESENTATION: Variable BPD: 4.4 cm 19 weeks / 2 days HC: 15.9 cm 18 weeks / 5 days AC: 14.3 cm 19 weeks / 4 days FL: 3.0 cm 19 weeks / 3 days ESTIMATED WEIGHT IN GRAMS: 292 grams ESTIMATED WEIGHT IN LBS/OZ: 0 lbs. 10 oz. WEIGHT PERCENTAGE BASED ON ESTABLISHED DATES: 91% HC/AC: 1.1 Normal FL/AC: 21.3 Normal HEART RATE: 133 bpm RHYTHM: Normal IMPRESSION: There is satisfactory growth compared to old exam. No complicating process seen.
[2021-01-18 22:30] LABS: ALT 9 U/L (4-34); AST 22 U/L (14-36); African American GFR (CKD) >90 (>60 ml/min/1.73 sqM); Albumin 3.6 g/dL (3.5-5.0); Alkaline Phosphatase 67 U/L (38-126); Anion Gap 6 mmol/L; Blood Urea Nitrogen 5 mg/dL (7-17); Calcium 9.3 mg/dL (8.4-10.2); Carbon Dioxide 17 mmol/L (22-30); Chloride 110 mmol/L (98-107); Glucose 79 mg/dL (74-99); Non-African American GFR(CKD) >90 (>60 ml/min/1.73 sqM); Potassium 3.8 mmol/L (3.5-5.1); Sodium 133 mmol/L (137-145); Total Bilirubin 0.4 mg/dL (0.2-1.3); Total Protein 6.2 g/dL (6.3-8.2)
[2021-01-18 23:11] LABS: Appearance,Urine Cloudy (Clear); Bacteria,Urine Occasional /hpf; Bilirubin,Urine Negative (Negative); Blood,Urine Negative (Negative); Color,Urine Light Yellow; Glucose,Urine (UA) Negative (Negative); Ketones,Urine Negative (Negative); Leukocyte Esterase,Urine Large (Negative); Mucus,Urine Occasional /hpf; Nitrite,Urine Negative (Negative); PH, Urine 6.5 (5.0-8.0); Protein,Urine Negative (Negative); RBC,Urine 6 /hpf (0-5); Specific Gravity,Urine 1.009 (1.001-1.035); Squamous Epithelial Cell,Urine 5 /hpf (0-4); Urobilinogen,Urine <2.0 mg/dL (<2.0); WBC,Urine 39 /hpf (0-5)
[2021-01-18] MEDS ORDERED: cefTRIAXone IN SWFI 1,000 MG/10 ML SYRINGE IVP ONE (23:30)
[2021-01-19 00:22] VITALS: BP 105/64; PULSE 67; RESP 14
[2021-01-21 13:53] LABS: C. trachomatis,PCR Negative (Neg,Equiv); Chlamydia trachomatis Source Urine; N. gonorrhoeae,PCR Negative (Neg,Equiv); Neisseria Source Urine
== END 2021-01-19 00:23 | disposition home or self-care (01) ==
LOC: EC 21:07
DX: O23.42 Unspecified infection of urinary tract in pregnancy, second trimester (principal); O99.342 Other mental disorders complicating pregnancy, second trimester; O99.332 Smoking (tobacco) complicating pregnancy, second trimester; F41.9 Anxiety disorder, unspecified; F32.9 Major depressive disorder, single episode, unspecified; F17.200 Nicotine dependence, unspecified, uncomplicated; Z3A.19 19 weeks gestation of pregnancy; Z88.0 Allergy status to penicillin
CPT/HCPCS: 36415; 86900; 86901; 80053; 85025; 86850; 81001; 87491; 87591; 87086; 76805; 99284; 96374; J0696

== ENCOUNTER → 2021-04-08 | Outpatient (CLI) | payer OTHER ==
[2021-04-08 14:08] LABS: Glucose,Whole Blood 86 mg/dL (75-99)
[2021-04-08 14:51] LABS: Appearance,Urine Cloudy (Clear); Bacteria,Urine Rare /hpf; Bilirubin,Urine Negative (Negative); Blood,Urine Negative (Negative); Color,Urine Yellow; Glucose,Urine (UA) Negative (Negative); Ketones,Urine Negative (Negative); Leukocyte Esterase,Urine Large (Negative); Mucus,Urine Moderate /hpf; Nitrite,Urine Negative (Negative); Protein,Urine Trace (Negative); RBC,Urine 2 /hpf (0-5); Specific Gravity,Urine 1.022 (1.001-1.035); Squamous Epithelial Cell,Urine 6 /hpf (0-4); Urobilinogen,Urine <2.0 mg/dL (<2.0); WBC,Urine 58 /hpf (0-5)
[2021-04-08 15:15] VITALS: BP 105/62; PULSE 95; RESP 16; TEMP 97.3
--- NOTE | 2021-04-23 20:55 | P.MSEPDOC ---
Presenting Problems - Arrival Data Date of Arrival on Unit: 04/08/21 Time of Arrival on Unit: 13:31 Mode of Transport: Ambulatory - Complaint OB-Reason for Admission/Chief Complaint: Dizziness Medical History - Information : 7 Para: 1 Term: 1 : 0 Abortions: Spontaneous or Elective: 5 Number of Living Children: 1 - Gestational Age Gestational Age by SHANNON (wks/days): 30 Weeks and 4 Days Review of Systems - Review of Systems Constitutional: No problems Breast: No problems ENT: No problems Cardiovascular: No problems Respiratory: No problems Gastrointestinal: No problems Genitourinary: No problems Musculoskeletal: No problems Neurological: Dizziness Skin: No problems Vital Signs - Temperature Temperature: 97.3 F Temperature Source: Temporal Artery Scan - Pulse Right Brachial Pulse Rate: 95 Pulse Assessment Method: Automatic Cuff - Respirations Respiratory Rate: 16 Oxygen Delivery Method: Room Air O2 Sat by Pulse Oximetry: 98 - Blood Pressure Right Arm Blood Pressure: 105/62 Blood Pressure Mean: 76 Blood Pressure Source: Automatic Cuff Medical Screen Scoring - Uterine Contractions Frequency From (mins): 0 - Assessment - Baby A Baseline FHR: 135 Heart Rate - NICHD Category: Category I (Normal) Physician Notification - Physician Notified Physician Notified Date: 04/08/21 Physician Notified Time: 14:55 Physician: Patsy Donovan Order Received: Yes (take OTC claritin, culture urine, d/c with instruction) Maternal Triage Index - Maternal Triage Index Presenting for scheduled procedure w/no complaint: No - Stat/Priority 1 Stat Priority 1: No - Urgent/Priority 2 Urgent Priority 2: No - Prompt/Priority 3 Prompt Priority 3: No - Non-Urgent/Priority 4 Non-Urgent Priority 4: Yes Criteria Met for Priority 4: non-urgent symptom dizziness Disposition - Disposition OB Disposition: Triage, Discharge to home, Written follow up instructions reviewed Discharge Date: 04/08/21 Discharge Time: 14:57 I agree with the RN Medical Screening Exam: Yes Case reviewed; plan agreed upon as documented in EMR&OBIX.: Yes Diagnosis: DIZZINESS AND GIDDINESS
== END | disposition home or self-care (01) ==
LOC: FBPOP 13:31
PROVIDERS: ATTEND Obstetrics & Gynecology
DX: O26.893 Other specified pregnancy related conditions, third trimester (principal); R42 Dizziness and giddiness; Z3A.35 35 weeks gestation of pregnancy
CPT/HCPCS: 59025; 81001; 87086; G0463; 99213

== ENCOUNTER 2021-05-28 19:39 | Outpatient (CLI) | payer OTHER ==
[2021-05-28 20:33] VITALS: BP 122/77; PULSE 110; RESP 16; TEMP 98.6
--- NOTE | 2021-05-29 07:57 | P.MSEPDOC ---
Presenting Problems - Arrival Data Date of Arrival on Unit: 05/28/21 Time of Arrival on Unit: 19:39 Mode of Transport: Ambulatory - Complaint OB-Reason for Admission/Chief Complaint: Rule Out SROM Comment: Pt presents to triage with c/o SROM around 1500. Pt states that she did not experience a big gush of fluid but that she has been leaking on and off for the last several hours. Pt reports clear fluid Medical History - Information : 7 Para: 1 Term: 1 : 0 Abortions: Spontaneous or Elective: 5 Number of Living Children: 1 - Gestational Age Gestational Age by SHANNON (wks/days): 37 Weeks and 5 Days - History Complications: Smoker Comment: Pt reports smoking approx 5 ciggarettes/day Review of Systems - Review of Systems Constitutional: No problems Breast: No problems ENT: No problems Cardiovascular: No problems Respiratory: No problems Gastrointestinal: No problems Genitourinary: No problems Musculoskeletal: No problems Neurological: No problems Skin: No problems Vital Signs - Temperature Temperature: 98.6 F Temperature Source: Temporal Artery Scan - Pulse Pulse Oximetery Pulse Rate: 110 Pulse Assessment Method: Automatic Cuff - Respirations Respiratory Rate: 16 Oxygen Delivery Method: Room Air - Blood Pressure Right Arm Blood Pressure: 122/77 Blood Pressure Mean: 92 Blood Pressure Source: Automatic Cuff Medical Screen Scoring - Cervical Exam Dilation (cm): 2 Effacement (%): 60 Station: -3 Membranes: Intact - Uterine Contractions Frequency From (mins): 0 Frequency To (mins): 0 Duration From (seconds): 0 Duration To (seconds): 0 Intensity: Absent Resting: Soft to palpation - Assessment - Baby A Baseline FHR: 130 Heart Rate - NICHD Category: Category I (Normal) NST: Reactive Physician Notification - Physician Notified Physician Notified Date: 05/28/21 Physician Notified Time: 20:09 Physician: Beverley Pinon Order Received: Yes - Notification Comment Comment: Dr. Pinon called dept. Report given re: pt c/o SROM around 1500, no big gush of. fluid noted but pt states she has been "leaking clear fluid off and on all day",. negative amnisure result, SVE, status, abdominal cramping similar to faye jacob. for the last 3 days and contraction pattern. Orders received to d/c pt home, discuss. labor s/sx and when to return to triage Maternal Triage Index - Maternal Triage Index Presenting for scheduled procedure w/no complaint: No - Stat/Priority 1 Stat Priority 1: No - Urgent/Priority 2 Urgent Priority 2: No - Prompt/Priority 3 Prompt Priority 3: No - Non-Urgent/Priority 4 Non-Urgent Priority 4: Yes Criteria Met for Priority 4: >37 weeks early labor signs and/or c/o SROM/leaking Disposition - Disposition OB Disposition: Discharge to home Discharge Date: 05/28/21 Discharge Time: 20:20 I agree with the RN Medical Screening Exam: Yes Case reviewed; plan agreed upon as documented in EMR&OBIX.: Yes Diagnosis: FALSE LABOR AT OR AFTER 37 COMPLETED WEEKS OF GESTATION
== END 2021-05-28 20:20 | disposition home or self-care (01) ==
LOC: FBPOP 19:39
PROVIDERS: ATTEND Obstetrics & Gynecology
DX: O47.1 False labor at or after 37 completed weeks of gestation (principal); O99.333 Smoking (tobacco) complicating pregnancy, third trimester; F17.210 Nicotine dependence, cigarettes, uncomplicated; Z3A.37 37 weeks gestation of pregnancy; Z88.0 Allergy status to penicillin; Z91.040 Latex allergy status
CPT/HCPCS: 59025; 84112; G0463; 99213

== ENCOUNTER 2021-06-17 06:15 | Inpatient (IN) | payer OTHER ==
[2021-06-17] MEDS ORDERED: METHYLERGONOVINE 0.2 MG/ML 1 ML AMP IM PRN (06:33)
[2021-06-17] MEDS ORDERED: TERBUTALINE 1 MG/ML VIAL SQ PRN (06:33)
[2021-06-17] MEDS ORDERED: CARBOPROST TROMETHAMINE 250 MCG/ML 1 ML AMP IM PRN (06:33)
[2021-06-17] MEDS ORDERED: LIDOCAINE 0.5% (PF) 5 MG/ML (50 ML SDV) SQ PRN (06:33)
[2021-06-17] MEDS ORDERED: OXYTOCIN 10 UNIT/ML 1 ML VIAL IM PRN (06:33)
[2021-06-17] MEDS: LACTATED RINGERS 1,000 ML IV SCH ×2 (06:44→09:55)
[2021-06-17] MEDS ORDERED: OXYTOCIN 30 UNITS/500 ML NS 30 UNIT in SALINE 1 500ML.BAG IV SCH ×2 (06:45→17:30)
[2021-06-17 07:38] LABS: Basophils % (A) 0 %; Eosinophils # (A) 0.2 k/uL (0-0.7); Eosinophils % (A) 2 %; HCT 37.2 % (34.0-46.0); HGB 13.3 gm/dL (11.4-16.0); Hyperchromasia Slight; Lymphocytes # (A) 2.6 k/uL (1.0-4.8); Lymphocytes % (A) 24 %; MCH 30.9 pg (25.0-35.0); MCHC 35.7 g/dL (31.0-37.0); MCV 86.5 fL (80.0-100.0); Mean Platelet Volume 7.5; Monocytes # (A) 0.6 k/uL (0-1.0); Monocytes % (A) 6 %; Neutrophils # (A) 7.2 k/uL (1.3-7.7); Neutrophils % (A) 66 %; Platelet Count 292 k/uL (150-450); Poikilocytosis Slight; RDW 14.2 % (11.5-15.5); WBC 10.8 k/uL (3.8-10.6)
[2021-06-17] MEDS ORDERED: SODIUM CHLORIDE 0.9% 100 ML BAG ONE (09:25)
[2021-06-17] MEDS ORDERED: fentaNYL (PF) 50 MCG/ML 5 ML AMP ONE (09:25)
[2021-06-17] MEDS ORDERED: ROPIVACAINE 5MG/ML 20ML VIAL ONE (09:25)
--- NOTE | 2021-06-17 12:32 | P.HPOB ---
History of Present Illness H&P Date: 06/17/21 Chief Complaint: induction of labor 20-year-old at 40 weeks' gestation presents for induction of labor. Her cervix is 3-4 cm dilated, 80% effaced, and -2 station. She is gianna irregularly. heart tones 140 with moderate variability and reactive. Review of Systems All systems: negative Constitutional: Denies chills, Denies fever Eyes: denies blurred vision, denies pain Ears, nose, mouth and throat: Denies headache, Denies sore throat Cardiovascular: Denies chest pain, Denies shortness of breath Respiratory: Denies cough Gastrointestinal: Denies abdominal pain, Denies diarrhea, Denies nausea, Denies vomiting Genitourinary: Denies dysuria, Denies hematuria Musculoskeletal: Denies myalgias Integumentary: Denies pruritus, Denies rash Neurological: Denies numbness, Denies weakness Psychiatric: Denies anxiety, Denies depression Endocrine: Denies fatigue, Denies weight change Past Medical History Past Medical History: No Reported History Additional Past Medical History / Comment(s): Obstetric history: She has had 5 previous miscarriages and one previous vaginal delivery This is her seventh . Blood type is O+, abs negative, rubella immune, hepatitis B-, GBS negative, RPR nonreactive. History of Any Multi-Drug Resistant Organisms: None Reported Past Surgical History: Orthopedic Surgery Additional Past Surgical History / Comment(s): right knee surgery at age 1 and right hip surgery at 12 Past Anesthesia/Blood Transfusion Reactions: No Reported Reaction Past Psychological History: Anxiety, Bipolar, Depression Smoking Status: Current every day smoker Past Alcohol Use History: Occasional Past Drug Use History: None Reported - Past Family History Mother Family Medical History: Diabetes Mellitus Medications and Allergies Home Medications Medication Instructions Recorded Confirmed Type Pnv,Calcium 72/Iron/Folic Acid 1 tab PO DAILY 01/16/20 06/17/21 History [ Plus Tablet] Allergies Allergy/AdvReac Type Severity Reaction Status Date / Time latex Allergy Rash/Hives Verified 06/17/21 06:24 Penicillins Allergy Anaphylaxis Verified 06/17/21 06:24 Exam Osteopathic Statement: *. No significant issues noted on an osteopathic s tructural exam other than those noted in the History and Physical/Consult. Vital Signs Temp Pulse Resp BP 06/17/21 07:10 97.1 F L 73 17 112/65 Intake and Output 06/16/21 06/17/21 06/17/21 22:59 06:59 14:59 Other: Weight 97.522 kg 97.522 kg Heart: Regular rate and rhythm Lungs: Clear to auscultation bilaterally Abdomen: Soft, nontender Extremities: Negative Homans sign Results Result Diagrams: 06/17/21 06:45 Abnormal Lab Results - Last 24 Hours (Table) 06/17/21 Range/Units 06:45 WBC 10.8 H (3.8-10.6) k/uL Assessment and Plan (1) Normal labor Current Visit: No Status: Resolved Code(s): O80 - ENCOUNTER FOR FULL-TERM UNCOMPLICATED DELIVERY; Z37.9 - OUTCOME OF DELIVERY, UNSPECIFIED SNOMED Code(s): 18450810 Plan: 1. Induction of labor with amniotomy and Pitocin 2. Anticipate normal vaginal delivery
[2021-06-17] MEDS ORDERED: diphenhydrAMINE 50 MG CAP PO PRN (17:20)
[2021-06-17] MEDS ORDERED: ZOLPIDEM 5 MG TAB PO PRN (17:20)
[2021-06-17] MEDS ORDERED: LANOLIN CREAM 5 GM TUBE TOPICAL PRN (17:20)
[2021-06-17] MEDS ORDERED: HYDROCORTISONE 2.5% RECTAL CREAM 30 GM TUBE RECTAL PRN (17:20)
[2021-06-17] MEDS ORDERED: diphenhydrAMINE 25 MG CAP PO PRN (17:20)
[2021-06-17] MEDS ORDERED: BENZOCAINE/MENTHOL SPRAY 1 GM/SPRAY AEROSOL TOPICAL PRN (17:20)
[2021-06-17] MEDS ORDERED: diphenhydrAMINE 50 MG/ML 1 ML VIAL IVP PRN ×2 (17:20)
[2021-06-17] MEDS ORDERED: SIMETHICONE 80 MG CHEWABLE PO PRN (17:20)
--- NOTE | 2021-06-17 17:23 | P.PROBDLV ---
Vaginal Delivery Note - . Vaginal Delivery Note: 20-year-old at 40 weeks' gestation presents for induction of labor. Her cervix is 3-4 cm dilated, 80% effaced, and -2 station. She is gianna irregularly. heart tones 140 with moderate variability and reactive. Pitocin was started. Amniotomy performed at 7:03 AM clear fluid noted. When she was uncomfortable she did get an epidural. Her cervix was completely dilated at around 1700. She pushed, and delivered a viable male infant over intact perineum under epidural anesthesia at 1702. Head delivered OA, nuchal cord 1 easily reduced, anterior shoulder which was the left shoulder delivered gentle downward guidance POSTERIOR shoulder and rest of body. Nose and mouth bulb suctioned, cord clamped and cut, infant placed mother's abdomen. Apgars 8, 9, weight 7 lbs. 4 oz. Placenta delivered spontaneous, intact with three-vessel cord soon thereafter. Vagina, cervix, perineum inspected. Second-degree midline laceration was repaired with 3-0 Vicryl. Estimated blood loss 200 mL. Mother and baby in stable condition.
[2021-06-17] MEDS: IBUPROFEN 600 MG TAB PO PRN (18:35)
[2021-06-17] MEDS: SENNOSIDES-DOCUSATE SODIUM 1 EACH TAB PO SCH (19:56)
[2021-06-18] MEDS: LACTATED RINGERS 1,000 ML IV SCH (00:48)
[2021-06-18] MEDS: IBUPROFEN 600 MG TAB PO PRN ×2 (03:01→12:13)
[2021-06-18 06:48] LABS: Basophils % (A) 0 %; Eosinophils # (A) 0.2 k/uL (0-0.7); Eosinophils % (A) 2 %; HCT 32.1 % (34.0-46.0); HGB 11.1 gm/dL (11.4-16.0); Lymphocytes # (A) 2.2 k/uL (1.0-4.8); Lymphocytes % (A) 19 %; MCH 30.4 pg (25.0-35.0); MCHC 34.6 g/dL (31.0-37.0); Monocytes # (A) 0.6 k/uL (0-1.0); Monocytes % (A) 5 %; Neutrophils # (A) 8.5 k/uL (1.3-7.7); Neutrophils % (A) 73 %; Platelet Count 247 k/uL (150-450); Poikilocytosis Slight; RBC 3.64 m/uL (3.80-5.40); RDW 14.3 % (11.5-15.5); WBC 11.7 k/uL (3.8-10.6)
[2021-06-18] MEDS: ACETAMINOPHEN TAB 325 MG TAB PO PRN ×2 (07:25→16:00)
[2021-06-18] MEDS: SENNOSIDES-DOCUSATE SODIUM 1 EACH TAB PO SCH (07:25)
--- NOTE | 2021-06-18 08:41 | P.DS ---
Providers Date of admission: 06/17/21 06:19 Expected date of discharge: 06/18/21 Attending physician: Patsy Donovan Primary care physician: Stated None - Discharge Diagnosis(es) (1) Normal vaginal delivery Current Visit: No Status: Acute Hospital Course: Patient presented for induction of labor. She underwent a normal vaginal delivery. course uncomplicated. She denies nausea, vomiting, chest pain, shortness of breath or any calf pain. Her uterus is firm below the umbilicus, her lochia is decreasing. Patient will be discharged home day #1 in stable condition to follow-up with me in 6 weeks. Plan - Discharge Summary New Discharge Prescriptions: New Ibuprofen [Motrin] 600 mg PO Q6HR PRN #30 tab PRN Reason: Mild Pain (Scale 1 To 3) No Action Pnv,Calcium 72/Iron/Folic Acid [ Plus Tablet] 1 tab PO DAILY Discharge Medication List Pnv,Calcium 72/Iron/Folic Acid [ Plus Tablet] 1 tab PO DAILY 01/16/20 [History] Ibuprofen [Motrin] 600 mg PO Q6HR PRN #30 tab 06/18/21 [Rx] Follow up Appointment(s)/Referral(s): Patsy Donovan DO [Doctor of Osteopathic Medicine] - 6 Weeks Discharge Disposition: HOME SELF-CARE
[2021-06-18 16:18] VITALS: BP 103/68; PULSE 78; RESP 16; TEMP 98.4
== END 2021-06-18 17:40 | disposition home or self-care (01) | DRG 807 ==
LOC: 4FBP 06:19
PROVIDERS: ADMIT Obstetrics & Gynecology; ATTEND Obstetrics & Gynecology
PROC: 3E033VJ Introduction of Other Hormone into Peripheral Vein, Percutaneous Approach (ICD-10-PCS; principal; 2021-06-17)
PROC: 10E0XZZ Delivery of Products of Conception, External Approach (ICD-10-PCS; principal; 2021-06-17)
PROC: 00HU33Z Insertion of Infusion Device into Spinal Canal, Percutaneous Approach (ICD-10-PCS; principal; 2021-06-17)
PROC: 0KQM0ZZ Repair Perineum Muscle, Open Approach (ICD-10-PCS; principal; 2021-06-17)
PROC: 10907ZC Drainage of Amniotic Fluid, Therapeutic from Products of Conception, Via Natural or Artificial Opening (ICD-10-PCS; principal; 2021-06-17)
PROC: 3E0R3NZ Introduction of Analgesics, Hypnotics, Sedatives into Spinal Canal, Percutaneous Approach (ICD-10-PCS; principal; 2021-06-17)
DX: O69.81X0 Labor and delivery complicated by cord around neck, without compression, not applicable or unspecified (principal); Z37.0 Single live birth; O70.1 Second degree perineal laceration during delivery; O99.334 Smoking (tobacco) complicating childbirth; O99.344 Other mental disorders complicating childbirth; F17.210 Nicotine dependence, cigarettes, uncomplicated; F31.9 Bipolar disorder, unspecified; F41.9 Anxiety disorder, unspecified; Z3A.40 40 weeks gestation of pregnancy; Z83.3 Family history of diabetes mellitus; Z88.0 Allergy status to penicillin; Z91.040 Latex allergy status
CPT/HCPCS: 85025; 86850; 86900; 86901

== ENCOUNTER 2022-02-28 22:46 | Emergency (ER) | payer OTHER ==
[2022-02-28 23:44] LABS: Basophils # (A) 0.1 k/uL (0-0.2); Basophils % (A) 1 %; Eosinophils # (A) 0.3 k/uL (0-0.7); Eosinophils % (A) 4 %; HCT 39.3 % (34.0-46.0); HGB 13.7 gm/dL (11.4-16.0); Lymphocytes # (A) 2.3 k/uL (1.0-4.8); Lymphocytes % (A) 28 %; MCH 31.3 pg (25.0-35.0); MCHC 34.9 g/dL (31.0-37.0); MCV 89.4 fL (80.0-100.0); Mean Platelet Volume 7.5; Monocytes # (A) 0.5 k/uL (0-1.0); Monocytes % (A) 6 %; Neutrophils % (A) 61 %; Platelet Count 257 k/uL (150-450); RDW 13.1 % (11.5-15.5); WBC 8.2 k/uL (3.8-10.6)
[2022-02-28 23:56] LABS: Amphetamine Screen,Urine Not Detected (NotDetected); Barbiturate Screen,Urine Not Detected (NotDetected); Benzodiazepines Screen,Urine Not Detected (NotDetected); Cocaine Screen,Urine Not Detected (NotDetected); Methadone Screen, Urine Not Detected (NotDetected); Opiate Screen,Urine Not Detected (NotDetected); Oxycodone Screen, Urine Not Detected (NotDetected); Phencyclidine Screen,Urine Not Detected (NotDetected); Tricyclic Antidepressant,Urine Not Detected (NotDetected); Urn Cannabinoid Scrn Not Detected (NotDetected)
[2022-03-01 00:15] LABS: ALT 13 U/L (4-34); AST 21 U/L (14-36); Acetaminophen 32.8 ug/mL; African American GFR (CKD) >90 (>60 ml/min/1.73 sqM); Albumin 3.8 g/dL (3.5-5.0); Alcohol <10 mg/dL; Alkaline Phosphatase 72 U/L (38-126); Anion Gap 6 mmol/L; Blood Urea Nitrogen 18 mg/dL (7-17); Calcium 9.1 mg/dL (8.4-10.2); Carbon Dioxide 18 mmol/L (22-30); Chloride 112 mmol/L (98-107); Glucose 100 mg/dL (74-99); Non-African American GFR(CKD) >90 (>60 ml/min/1.73 sqM); Salicylate <1.0 mg/dL; Sodium 136 mmol/L (137-145); Total Bilirubin 0.2 mg/dL (0.2-1.3); Total Protein 6.1 g/dL (6.3-8.2)
--- NOTE | 2022-03-01 00:27 | ED ---
Psych HPI - General Chief Complaint: Psychiatric Symptoms Stated Complaint: Overdose Time Seen by Provider: 02/28/22 22:51 Source: patient Mode of arrival: EMS - History of Present Illness Initial Comments: This patient is 21-year-old woman who presents with complaint that she had taken an overdose. Patient had been feeling depressed and attempted to reach up to a friend of hers. When she did not hear back, she took a combination of medications. She states there were a number of NyQuil capsules, also ibuprofen, and then a third medication she believes was an antibiotic. This was proximally 75-90 minutes before arrival here. She is not having any symptoms related to t his. The patient states that her friend finally contacted her and found that which she did and then phoned EMS who brought her here. MD Complaint: suicidal ideation, feels depressed -: hour(s) Associated Psychiatric Symptoms: depression, suicidal ideation History of same: Yes Improves With: none Worsens With: none Associated Symptoms: denies other symptoms If Self Harm: has acted on plan - Related Data Home Medications Medication Instructions Recorded Confirmed Vit No.180/Iron/Folic 1 tab PO DAILY 01/16/20 06/17/21 [ Plus Tablet] Previous Rx's Medication Instructions Recorded Ibuprofen [Motrin] 600 mg PO Q6HR PRN #30 tab 06/18/21 Allergies Allergy/AdvReac Type Severity Reaction Status Date / Time latex Allergy Rash/Hives Verified 06/17/21 06:24 Penicillins Allergy Anaphylaxis Verified 06/17/21 06:24 Review of Systems ROS Statement: Those systems with pertinent positive or pertinent negative responses have been documented in the HPI. ROS Other: All systems not noted in ROS Statement are negative. Constitutional: Denies: fever, chills Respiratory: Denies: cough, dyspnea Cardiovascular: Denies: chest pain, palpitations, syncope Gastrointestinal: Denies: abdominal pain, nausea, vomiting, diarrhea Genitourinary: Denies: dysuria, hematuria Musculoskeletal: Denies: back pain Skin: Denies: rash Neurological: Denies: headache, weakness, numbness Psychiatric: Reports: depression, suicidal thoughts. Denies: auditory hallucinations, visual hallucinations, homicidal thoughts Past Medical History Past Medical History: No Reported History Additional Past Medical History / Comment(s): Obstetric history: She has had 5 previous miscarriages and one previous vaginal delivery This is her seventh p regnancy. Blood type is O+, abs negative, rubella immune, hepatitis B-, GBS negative, RPR nonreactive. History of Any Multi-Drug Resistant Organisms: None Reported Past Surgical History: Orthopedic Surgery Additional Past Surgical History / Comment(s): right knee surgery at age 1 and right hip surgery at 12 Past Anesthesia/Blood Transfusion Reactions: No Reported Reaction Past Psychological History: Anxiety, Bipolar, Depression Smoking Status: Current every day smoker Past Alcohol Use History: Occasional Past Drug Use History: None Reported - Past Family History Mother Family Medical History: Diabetes Mellitus General Exam General appearance: alert, in no apparent distress Head exam: Present: atraumatic, normocephalic Eye exam: Present: normal appearance. Absent: scleral icterus, conjunctival injection Neck exam: Present: normal inspection Respiratory exam: Present: normal lung sounds bilaterally. Absent: respiratory distress, wheezes, rales, rhonchi, stridor Cardiovascular Exam: Present: regular rate, normal rhythm, normal heart sounds. Absent: systolic murmur, diastolic murmur, rubs, gallop GI/Abdominal exam: Present: soft. Absent: distended, tenderness, guarding, rebound, rigid, mass Extremities exam: Present: normal inspection, normal capillary refill. Absent: pedal edema, calf tenderness Back exam: Present: normal inspection. Absent: CVA tenderness (R), CVA tenderness (L) Neurological exam: Present: alert Psychiatric exam: Present: depressed, suicidal ideation. Absent: agitated, anxious, flat affect, manic, homicidal ideation Skin exam: Present: warm, dry, intact, normal color. Absent: rash Course Vital Signs 02/28/22 03/01/22 03/01/22 22:49 02:08 04:44 Temperature 98.8 F Pulse Rate 78 68 70 Respiratory 18 18 16 Rate Blood Pressure 108/73 105/70 115/74 O2 Sat by Pulse 99 98 97 Oximetry Medical Decision Making - Lab Data Result diagrams: 02/28/22 23:35 02/28/22 23:35 Lab Results 02/28/22 02/28/22 02/28/22 Range/Units 23:35 23:35 23:35 WBC 8.2 (3.8-10.6) k/uL RBC 4.40 (3.80-5.40) m/uL Hgb 13.7 (11.4-16.0) gm/dL Hct 39.3 (34.0-46.0) % MCV 89.4 (80.0-100.0) fL MCH 31.3 (25.0-35.0) pg MCHC 34.9 (31.0-37.0) g/dL RDW 13.1 (11.5-15.5) % Plt Count 257 (150-450) k/uL MPV 7.5 Neutrophils % 61 % Lymphocytes % 28 % Monocytes % 6 % Eosinophils % 4 % Basophils % 1 % Neutrophils # 5.0 (1.3-7.7) k/uL Lymphocytes # 2.3 (1.0-4.8) k/uL Monocytes # 0.5 (0-1.0) k/uL Eosinophils # 0.3 (0-0.7) k/uL Basophils # 0.1 (0-0.2) k/uL Sodium (137-145) mmol/L Potassium (3.5-5.1) mmol/L Chloride (98-107) mmol/L Carbon Dioxide (22-30) mmol/L Anion Gap mmol/L BUN (7-17) mg/dL Creatinine (0.52-1.04) mg/dL Est GFR (CKD-EPI)AfAm (>60 ml/min/1.73 sqM) Est GFR (CKD-EPI)NonAf (>60 ml/min/1.73 sqM) Glucose (74-99) mg/dL Calcium (8.4-10.2) mg/dL Total Bilirubin (0.2-1.3) mg/dL AST (14-36) U/L ALT (4-34) U/L Alkaline Phosphatase (38-126) U/L Total Protein (6.3-8.2) g/dL Albumin (3.5-5.0) g/dL Urine HCG, Qual Not Detected (Not Detectd) Salicylates mg/dL Urine Opiates Screen Not Detected (NotDetected) Ur Oxycodone Screen Not Detected (NotDetected) Urine Methadone Screen Not Detected (NotDetected) Ur Propoxyphene Screen Not Detected (NotDetected) Acetaminophen ug/mL Ur Barbiturates Screen Not Detected (NotDetected) U Tricyclic Antidepress Not Detected (NotDetected) Ur Phencyclidine Scrn Not Detected (NotDetected) Ur Amphetamines Screen Not Detected (NotDetected) U Methamphetamines Scrn Not Detected (NotDetected) U Benzodiazepines Scrn Not Detected (NotDetected) Urine Cocaine Screen Not Detected (NotDetected) U Marijuana (THC) Screen Not Detected (NotDetected) Serum Alcohol mg/dL 02/28/22 03/01/22 Range/Units 23:35 02:05 WBC (3.8-10.6) k/uL RBC (3.80-5.40) m/uL Hgb (11.4-16.0) gm/dL Hct (34.0-46.0) % MCV (80.0-100.0) fL MCH (25.0-35.0) pg MCHC (31.0-37.0) g/dL RDW (11.5-15.5) % Plt Count (150-450) k/uL MPV Neutrophils % % Lymphocytes % % Monocytes % % Eosinophils % % Basophils % % Neutrophils # (1.3-7.7) k/uL Lymphocytes # (1.0-4.8) k/uL Monocytes # (0-1.0) k/uL Eosinophils # (0-0.7) k/uL Basophils # (0-0.2) k/uL Sodium 136 L (137-145) mmol/L Potassium 4.0 (3.5-5.1) mmol/L Chloride 112 H (98-107) mmol/L Carbon Dioxide 18 L (22-30) mmol/L Anion Gap 6 mmol/L BUN 18 H (7-17) mg/dL Creatinine 0.90 (0.52-1.04) mg/dL Est GFR (CKD-EPI)AfAm >90 (>60 ml/min/1.73 sqM) Est GFR (CKD-EPI)NonAf >90 (>60 ml/min/1.73 sqM) Glucose 100 H (74-99) mg/dL Calcium 9.1 (8.4-10.2) mg/dL Total Bilirubin 0.2 (0.2-1.3) mg/dL AST 21 (14-36) U/L ALT 13 (4-34) U/L Alkaline Phosphatase 72 (38-126) U/L Total Protein 6.1 L (6.3-8.2) g/dL Albumin 3.8 (3.5-5.0) g/dL Urine HCG, Qual (Not Detectd) Salicylates <1.0 mg/dL Urine Opiates Screen (NotDetected) Ur Oxycodone Screen (NotDetected) Urine Methadone Screen (NotDetected) Ur Propoxyphene Screen (NotDetected) Acetaminophen 32.8 17.8 ug/mL Ur Barbiturates Screen (NotDetected) U Tricyclic Antidepress (NotDetected) Ur Phencyclidine Scrn (NotDetected) Ur Amphetamines Screen (NotDetected) U Methamphetamines Scrn (NotDetected) U Benzodiazepines Scrn (NotDetected) Urine Cocaine Screen (NotDetected) U Marijuana (THC) Screen (NotDetected) Serum Alcohol <10 mg/dL - EKG Data -: EKG Interpreted by Oh EKG shows normal: sinus rhythm, axis (Normal), intervals (Normal), QRS complexes (Low voltage QRS complex), ST-T waves (Normal) Rate: normal (Rate 70 bpm) Disposition Clinical Impression: Overdose, Mood disorder Disposition: HOME SELF-CARE Condition: Good Instructions (If sedation given, give patient instructions): Mood Disorders (ED) Is patient prescribed a controlled substance at d/c from ED?: No Referrals: None,Stated [Primary Care Provider] - 1-2 days
[2022-03-01 04:45] VITALS: RESP 16
[2022-03-01 07:20] VITALS: BP 106/68; PULSE 98; TEMP 98.6
== END 2022-03-01 07:17 | disposition home or self-care (01) ==
LOC: EC 22:46
DX: T65.91XA Toxic effect of unspecified substance, accidental (unintentional), initial encounter (principal); F39 Unspecified mood [affective] disorder; F17.200 Nicotine dependence, unspecified, uncomplicated; Z91.040 Latex allergy status; Z88.0 Allergy status to penicillin
CPT/HCPCS: 82075; 36415 ×2; 93005; 80053; 85025; 81025; 80306; 80143 ×2; 80179; 99284; G0480; 80320

== ENCOUNTER 2022-07-21 03:21 | Emergency (ER) | payer OTHER ==
[2022-07-21 03:28] VITALS: RESP 16; TEMP 97.4
[2022-07-21] MEDS ORDERED: predniSONE 50 MG TAB PO STA (03:43)
[2022-07-21] MEDS ORDERED: IBUPROFEN 600 MG TAB PO STA (03:43)
--- NOTE | 2022-07-21 03:46 | ED ---
General Adult HPI - General Chief complaint: Extremity Problem,Nontraumatic Stated complaint: [facility] - Left Shoulder Injury Time Seen by Provider: 07/21/22 03:29 Source: patient, RN notes reviewed Mode of arrival: ambulatory Limitations: no limitations - History of Present Illness Initial comments: 22-year-old female presents to the emergency Department with complaints of left shoulder pain, onset this evening at work. Patient states she initially developed discomfort when tugging on a heavy object. 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 States pain seems to originate in the shoulder and has a history of previous shoulder injury. Reports tingling discomfort in her left hand. Endorses muscle fatigue in the affected extremity. Denies head, neck, or back pain. No fall or trauma. Denies chest pain or difficulty breathing. - Related Data Home Medications Medication Instructions Recorded Confirmed Vit No.180/Iron/Folic 1 tab PO DAILY 01/16/20 06/17/21 [ Plus Tablet] Previous Rx's Medication Instructions Recorded Ibuprofen [Motrin] 600 mg PO Q6HR PRN #30 tab 06/18/21 Ibuprofen [Motrin] 600 mg PO Q8HR PRN #20 tab 07/21/22 predniSONE 50 mg PO DAILY #4 tab 07/21/22 Allergies Allergy/AdvReac Type Severity Reaction Status Date / Time latex Allergy Rash/Hives Verified 07/21/22 03:25 Penicillins Allergy Anaphylaxis Verified 07/21/22 03:25 Review of Systems ROS Statement: Those systems with pertinent positive or pertinent negative responses have been documented in the HPI. ROS Other: All systems not noted in ROS Statement are negative. Past Medical History Past Medical History: No Reported History Additional Past Medical History / Comment(s): Obstetric history: She has had 5 previous miscarriages and one previous vaginal delivery This is her seventh . Blood type is O+, abs negative, rubella immune, hepatitis B-, GBS negative, RPR nonreactive. History of Any Multi-Drug Resistant Organisms: None Reported Past Surgical History: Orthopedic Surgery Additional Past Surgical History / Comment(s): right knee surgery at age 1 and right hip surgery at 12 Past Anesthesia/Blood Transfusion Reactions: No Reported Reaction Past Psychological History: Anxiety, Bipolar, Depression Smoking Status: Vaper Past Alcohol Use History: Occasional Past Drug Use History: None Reported - Past Family History Mother Family Medical History: Diabetes Mellitus General Exam Limitations: no limitations General appearance: alert, in no apparent distress Neck exam: Present: normal inspection, full ROM. Absent: tenderness, meningismus, lymphadenopathy Respiratory exam: Present: normal lung sounds bilaterally. Absent: respiratory distress, wheezes, rales, rhonchi, stridor Cardiovascular Exam: Present: regular rate, normal rhythm, normal heart sounds. Absent: systolic murmur, diastolic murmur, rubs, gallop, clicks Left General: Present: normal inspection Shoulder Exam: Present: normal inspection, tenderness (nonlocalized tenderness upon palpation of the left shoulder), tenderness over AC joint. Absent: full ROM (Rotational movement limited by pain), swelling Upper Arm exam: Present: normal inspection Elbow exam: Present: normal inspection, full ROM Forearm Wrist exam: Present: normal inspection, full ROM Hand Wrist exam: Present: normal inspection, full ROM. Absent: tenderness, swelling Neuro motor exam: Present: fingers 2-5 abduction intact Vascular: Present: normal capillary refill, radial pulse, brachial pulse. Absent: vascular compromise, Pallo Neurological exam: Present: alert, oriented X3, normal gait Psychiatric exam: Present: normal affect, normal mood Skin exam: Present: warm, dry, intact, normal color. Absent: rash Course Vital Signs 07/21/22 03:25 Temperature 97.4 F L Pulse Rate 64 Respiratory 16 Rate Blood Pressure 107/68 O2 Sat by Pulse 99 Oximetry - Reevaluation(s) Reevaluation #1: 07/21/22 04:30 Patient updated on results. Encouraged to maintain mobility, though rest as needed. Directed to follow up with [facility] for recheck. Medical Decision Making - Medical Decision Making This is a 22-year-old female who presents to the emergency department for evaluation of left shoulder pain. Upon exam, patient is well-appearing and in no acute distress. She does have nonlocalized tenderness of the left shoulder endorses tingling discomfort radiating to the left arm. There is no loss of sensation in the extremity. Vascular status intact with normal cap refill. X- ray of the left shoulder will be obtained. Patient will be given Motrin and prednisone. I suspect that this is radicular in nature, though given patient's tenderness over the before meals joint and history of shoulder injury, x-ray is merited. Left shoulder x-ray is negative. There is no evidence of separation or concerns with joint spacing. Patient will be discharged home with a note for work. Instructed to follow up with [facility] for a recheck in 2 days. Return parameters discussed in detail. Patient verbalizes understanding and agrees with this pl radha. Attending: Amada. - Radiology Data Radiology results: report reviewed, image reviewed X-ray of the left shoulder was obtained. Report was reviewed in its entirety. Impression per Dr. Saenz is negative left shoulder exam. No fracture. Disposition Clinical Impression: Left shoulder strain Disposition: HOME SELF-CARE Condition: Stable Instructions (If sedation given, give patient instructions): Shoulder Sprain (ED) Additional Instructions: Take Motrin if needed for pain. Rest, though maintain mobility. Prednisone is prescribed to reduce inflammation. You are being given a note for two days off of work. Follow up with [facility] (contact info is on your paperwork) for further evaluation and treatment Return to the emergency department with any new, worse or concerning symptoms. Prescriptions: Ibuprofen [Motrin] 600 mg PO Q8HR PRN #20 tab PRN Reason: Pain predniSONE 50 mg PO DAILY #4 tab Is patient prescribed a controlled substance at d/c from ED?: No Referrals: None,Stated [Primary Care Provider] - 1-2 days Time of Disposition: 04:40
--- NOTE | 2022-07-21 04:11 | XR ---
EXAMINATION TYPE: XR shoulder complete LT DATE OF EXAM: 07/21/2022 COMPARISON: NONE HISTORY: Shoulder pain TECHNIQUE: 3 views FINDINGS: There is no evidence of fracture nor dislocation. Joint spaces are normal. No pathologic ca lcification. IMPRESSION: Negative left shoulder exam. No fracture.
[2022-07-21 05:00] VITALS: BP 116/72; PULSE 68
== END 2022-07-21 05:00 | disposition home or self-care (01) ==
LOC: EC 03:21
DX: S46.912A Strain of unspecified muscle, fascia and tendon at shoulder and upper arm level, left arm, initial encounter (principal); F32.A Depression, unspecified; F41.9 Anxiety disorder, unspecified; F17.290 Nicotine dependence, other tobacco product, uncomplicated; Z91.040 Latex allergy status; Z88.0 Allergy status to penicillin; X50.0XXA Overexertion from strenuous movement or load, initial encounter
CPT/HCPCS: 73030; 99283; J7512

== ENCOUNTER → 2022-07-30 | Outpatient (CLI) | payer OTHER ==
--- NOTE | 2022-07-30 15:50 | XR ---
EXAMINATION TYPE: XR cervical spine comp DATE OF EXAM: 07/30/2022 COMPARISON: NONE HISTORY: Pain TECHNIQUE: Four views are submitted. FINDINGS: The odontoid is intact. There are no compression deformities. The prevertebral soft tissue structur es are within normal limits. Mild degenerative disc disease C5-C6 small bilateral rudimentary cervic al ribs. Cannot exclude foraminal encroachment on the left. IMPRESSION: 1. Degenerative disc disease C5-C6. Consider follow-up MRI to assess left-sided neural foramina..
== END | disposition home or self-care (01) ==
LOC: RADXRMAIN 15:30
PROVIDERS: ATTEND Emergency Medicine
DX: M50.322 Other cervical disc degeneration at C5-C6 level (principal); S16.1XXA Strain of muscle, fascia and tendon at neck level, initial encounter; S46.012A Strain of muscle(s) and tendon(s) of the rotator cuff of left shoulder, initial encounter; R20.9 Unspecified disturbances of skin sensation
CPT/HCPCS: 72050

== ENCOUNTER → 2022-08-06 | Outpatient (CLI) | payer OTHER ==
--- NOTE | 2022-08-06 16:28 | XR ---
EXAMINATION TYPE: XR clavicle LT DATE OF EXAM: 08/06/2022 COMPARISON: Left shoulder x-ray 16 days ago. HISTORY: Strain injury with pain. TECHNIQUE: 2 views left clavicle. FINDINGS: No acute displaced clavicular fracture. Acromioclavicular joint remains within normal limit s. Overlying soft tissue is unremarkable. IMPRESSION: As above.
== END | disposition home or self-care (01) ==
LOC: RADXRMAIN 16:03
PROVIDERS: ATTEND Emergency Medicine
DX: S46.012D Strain of muscle(s) and tendon(s) of the rotator cuff of left shoulder, subsequent encounter (principal)

== ENCOUNTER 2022-08-30 06:37 | Emergency (ER) | payer OTHER ==
--- NOTE | 2022-08-30 06:58 | ED ---
Female Urogenital HPI - General Chief complaint: Vaginal Bleeding Stated complaint: Cramping, 6 wks Time Seen by Provider: 08/30/22 06:45 Source: patient, RN notes reviewed Mode of arrival: ambulatory Limitations: no limitations - History of Present Illness Initial comments: Patient is a pleasant 22-year-old female presenting to the emergency department with complaints of vaginal bleeding which began yesterday has vaginal spotting. She reports that she has approximately 6 weeks with positive home urine test and positive urine test at [facility] last week. She reports having approximately 7 miscarriages in the past with her longest gestation of miscarriage at 12 weeks. She has 2 living children without co mplications from those pregnancies both born healthy via vaginal delivery. In addition to her vaginal bleeding which began yesterday evening as spotting she is having some mild lower abdominal cramping. She denies any severe pain, nausea, vomiting, chest pain, shortness of breath, fevers or chills. She has no other significant past medical history and denies any other complaints or concerns at this time. - Related Data Home Medications Medication Instructions Recorded Confirmed Vit No.180/Iron/Folic 1 tab PO DAILY 01/16/20 06/17/21 [ Plus Tablet] Previous Rx's Medication Instructions Recorded Ibuprofen [Motrin] 600 mg PO Q6HR PRN #30 tab 06/18/21 Ibuprofen [Motrin] 600 mg PO Q8HR PRN #20 tab 07/21/22 predniSONE 50 mg PO DAILY #4 tab 07/21/22 Allergies Allergy/AdvReac Type Severity Reaction Status Date / Time latex Allergy Rash/Hives Verified 08/30/22 06:40 Penicillins Allergy Anaphylaxis Verified 08/30/22 06:40 Review of Systems ROS Statement: Those systems with pertinent positive or pertinent negative responses have been documented in the HPI. ROS Other: All systems not noted in ROS Statement are negative. Past Medical History Past Medical History: No Reported History Additional Past Medical History / Comment(s): Obstetric history: She has had 5 previous miscarriages and one previous vaginal delivery This is her seventh . Blood type is O+, abs negative, rubella immune, hepatitis B-, GBS negative, RPR nonreactive. History of Any Multi-Drug Resistant Organisms: None Reported Past Surgical History: Orthopedic Surgery Additional Past Surgical History / Comment(s): right knee surgery at age 1 and right hip surgery at 12 Past Anesthesia/Blood Transfusion Reactions: No Reported Reaction Past Psychological History: Anxiety, Bipolar, Depression Smoking Status: Vaper Past Alcohol Use History: Occasional Past Drug Use History: None Reported - Past Family History Mother Family Medical History: Diabetes Mellitus General Exam Limitations: no limitations General appearance: alert, in no apparent distress Head exam: Present: atraumatic, normocephalic, normal inspection Eye exam: Present: normal appearance, PERRL, EOMI. Absent: scleral icterus, conjunctival injection, periorbital swelling ENT exam: Present: normal exam, mucous membranes moist Neck exam: Present: normal inspection, full ROM Respiratory exam: Present: normal lung sounds bilaterally. Absent: respiratory distress, wheezes, rales, rhonchi, stridor Cardiovascular Exam: Present: regular rate, normal rhythm, normal heart sounds. Absent: systolic murmur, diastolic murmur, rubs, gallop, clicks GI/Abdominal exam: Present: soft, normal bowel sounds. Absent: distended, tenderness, guarding, rebound, rigid Extremities exam: Present: normal inspection. Absent: pedal edema, joint swelling Back exam: Present: normal inspection Neurological exam: Present: alert, oriented X3, CN II-XII intact Psychiatric exam: Present: normal affect, normal mood Skin exam: Present: warm, dry, intact, normal color. Absent: rash Course Vital Signs 08/30/22 06:40 Temperature 98 F Pulse Rate 84 Respiratory 16 Rate Blood Pressure 107/73 O2 Sat by Pulse 98 Oximetry Medical Decision Making - Medical Decision Making 22-year-old presents to the emergency room with confirmed at approximately 6 weeks with vaginal bleeding which began yesterday. This places her at A7. Vaginal bleeding worsening with some lower abdominal cramping high concern for threatened . Will proceed with workup for threatened with OB ultrasound, serum quantitative hCG level and CBC. Previous Rh typing on file. She is blood type O+. Mild cramping without any other associated symptoms no indication for IV hydration, antiemetics or pain medication at this time. OB ultrasound image interpreted by me demonstrated no intrauterine gestational sac consistent with no viable intrauterine . Radiologist report also reviewed. CBC without abnormalities. HCG serum quantitative level low at 60 for calculated gestational age at this time. High probability for miscarriage. Will discharge home in stable condition with repeat serum beta levels and 48 hours. Due to Rh+ status no need for well exam. Encouraged follow-up with patient's primary care provider and OB if necessary. Case discussed with Dr. Reyes - Lab Data Result diagrams: 08/30/22 06:51 Lab Results 08/30/22 08/30/22 Range/Units 06:51 06:51 WBC 6.8 (3.8-10.6) k/uL RBC 5.19 (3.80-5.40) m/uL Hgb 14.5 (11.4-16.0) gm/dL Hct 42.4 (34.0-46.0) % MCV 81.7 (80.0-100.0) fL MCH 27.9 (25.0-35.0) pg MCHC 34.2 (31.0-37.0) g/dL RDW 14.6 (11.5-15.5) % Plt Count 294 (150-450) k/uL MPV 7.6 Neutrophils % 57 % Lymphocytes % 30 % Monocytes % 4 % Eosinophils % 7 % Basophils % 1 % Neutrophils # 3.9 (1.3-7.7) k/uL Lymphocytes # 2.0 (1.0-4.8) k/uL Monocytes # 0.3 (0-1.0) k/uL Eosinophils # 0.5 (0-0.7) k/uL Basophils # 0.1 (0-0.2) k/uL HCG, Quant 62.4 mIU/mL Disposition Clinical Impression: Threatened Disposition: HOME SELF-CARE Condition: Stable Instructions (If sedation given, give patient instructions): Miscarriage (ED) Additional Instructions: Please complete repeat blood work in 48 hours to follow up on low serum hCG levels. Please follow-up with your primary care provider and/or your CLOSING SPECIALIST if you are established. Please return to the Emergency Department if symptoms worsen or any other concerns. Is patient prescribed a controlled substance at d/c from ED?: No Referrals: None,Stated [Primary Care Provider] - 1-2 days Time of Disposition: 07:55
[2022-08-30 07:18] LABS: Basophils # (A) 0.1 k/uL (0-0.2); Basophils % (A) 1 %; Eosinophils # (A) 0.5 k/uL (0-0.7); Eosinophils % (A) 7 %; HCT 42.4 % (34.0-46.0); HGB 14.5 gm/dL (11.4-16.0); Lymphocytes % (A) 30 %; MCH 27.9 pg (25.0-35.0); MCHC 34.2 g/dL (31.0-37.0); MCV 81.7 fL (80.0-100.0); Mean Platelet Volume 7.6; Monocytes # (A) 0.3 k/uL (0-1.0); Monocytes % (A) 4 %; Neutrophils # (A) 3.9 k/uL (1.3-7.7); Neutrophils % (A) 57 %; Platelet Count 294 k/uL (150-450); RBC 5.19 m/uL (3.80-5.40); RDW 14.6 % (11.5-15.5); WBC 6.8 k/uL (3.8-10.6)
--- NOTE | 2022-08-30 07:43 | US ---
EXAMINATION TYPE: Transabdominal DATE OF EXAM: 08/30/2022 7:29 AM COMPARISON: NONE CLINICAL HISTORY: vaginal bleeding. vaginal bleeding since last night. Patient states a little heavie r than spotting, but not heavy. . Positive beta-hCG test. EXAM PERFORMED: Transabdominal (TA). Pt did not want a transvaginal exam. EXAM MEASUREMENTS: GESTATIONAL AGE / DATING Physician Established: Not yet established Dates by LMP: 07/21/22 (5 weeks/5 days) EDC: 04/27/23 Dates by First Scan: No previous this is first scan Dates by Current Scan for: No IUP seen at this time MATERNAL ANATOMY Uterus: 7.8 x 5.6 x 3.5cm Right Ovary: 3.5 x 2.7 x 2.1cm Left Ovary: 3.7 x 2.2 x 1.6cm Post CDS / Adnexa: wnl Presence of free fluid: No Presence of corpus luteal cyst: No Presence of subchorionic bleed: No GESTATION / SURVEY CRL: Not vis. MSD: Not vis. IUP: No IUP seen at this time Date of LMP: 07/21/22 Beta HcG (if available): Pending Anteverted uterus. Endometrial stripe estimated near 10 mm. No gestational sac, yolk sac, or po le. No free fluid in the pelvis. Both ovaries seen and are symmetric and normal in size. No suspicious adnexal mass is noted. IMPRESSION: Findings could reflect too early to visualize intrauterine versus spontaneous a bortion. Ectopic not entirely excluded. Serial beta hCG and possible ultrasound follow-up a dvised.
[2022-08-30 08:15] VITALS: BP 107/65; PULSE 70; RESP 18; TEMP 98.1
== END 2022-08-30 08:15 | disposition home or self-care (01) ==
LOC: EC 06:37
DX: O20.0 Threatened abortion (principal); O99.341 Other mental disorders complicating pregnancy, first trimester; F41.9 Anxiety disorder, unspecified; F31.9 Bipolar disorder, unspecified; O99.331 Smoking (tobacco) complicating pregnancy, first trimester; F17.290 Nicotine dependence, other tobacco product, uncomplicated; Z3A.01 Less than 8 weeks gestation of pregnancy; Z88.0 Allergy status to penicillin; Z91.040 Latex allergy status
CPT/HCPCS: 36415; 76801; 84702; 85025; 86900; 86901; 99284

== ENCOUNTER 2023-03-23 13:46 | Outpatient (CLI) | payer OTHER ==
[2023-03-23 14:52] VITALS: BP 130/56; PULSE 91; RESP 16; TEMP 97.1
[2023-03-23 14:56] LABS: Amorphous Sediment,Urine Few /hpf; Appearance,Urine Cloudy (Clear); Bacteria,Urine Many /hpf; Bilirubin,Urine Negative (Negative); Blood,Urine Negative (Negative); Color,Urine Yellow; Glucose,Urine (UA) Negative (Negative); Hyaline Casts,Urine 1 /lpf (0-2); Ketones,Urine Negative (Negative); Leukocyte Esterase,Urine Moderate (Negative); Mucus,Urine Rare /hpf; Nitrite,Urine Negative (Negative); PH, Urine 6.5 (5.0-8.0); Protein,Urine Trace (Negative); RBC,Urine 1 /hpf (0-5); Specific Gravity,Urine 1.015 (1.001-1.035); Squamous Epithelial Cell,Urine 2 /hpf (0-4); Urobilinogen,Urine <2.0 mg/dL (<2.0); WBC,Urine 3 /hpf (0-5)
--- NOTE | 2023-03-25 19:24 | P.MSEPDOC ---
Presenting Problems - Arrival Data Date of Arrival on Unit: 03/23/23 Time of Arrival on Unit: 13:46 Mode of Transport: Ambulatory - Complaint OB-Reason for Admission/Chief Complaint: Other Comment: pt presents to triage with c/o lower abd cramping that started several days ago as well as one episode of brown spotting this am after urinating, abd soft and non tender, pt denies contractions, reports + fm Medical History - Information : 3 Para: 2 Term: 2 : 0 Abortions: Spontaneous or Elective: 0 Number of Living Children: 2 - Gestational Age Gestational Age by SHANNON (wks/days): 29 Weeks and 3 Days Review of Systems - Review of Systems Constitutional: No problems Breast: No problems ENT: No problems Cardiovascular: No problems Respiratory: No problems Gastrointestinal: No problems Genitourinary: No problems Musculoskeletal: No problems Neurological: No problems Skin: No problems Vital Signs - Temperature Temperature: 97.1 F Temperature Source: Temporal Artery Scan - Pulse Right Brachial Pulse Rate: 91 Pulse Assessment Method: Automatic Cuff - Respirations Respiratory Rate: 16 Oxygen Delivery Method: Room Air O2 Sat by Pulse Oximetry: 98 - Blood Pressure Right Arm Blood Pressure: 130/56 Blood Pressure Mean: 80 Blood Pressure Source: Automatic Cuff Medical Screen Scoring - Cervical Exam Dilation (cm): 0 Membranes: Intact - Assessment - Baby A Baseline FHR: 140 Heart Rate - NICHD Category: Category I (Normal) NST: Reactive Physician Notification - Physician Notified Physician Notified Date: 03/23/23 Physician Notified Time: 14:15 Physician: Kevin Jules New Order Received: Yes (dc home) Maternal Triage Index - Urgent/Priority 2 Urgent Priority 2: Yes Provider Notified: Kevin Jules Provider Notified Time: 14:15 Criteria Met for Priority 2: reviewed cervical exam with dr jules Disposition - Disposition OB Disposition: Discharge to home, Written follow up instructions reviewed Discharge Date: 03/23/23 Discharge Time: 14:35 I agree with the RN Medical Screening Exam: Yes Case reviewed; plan agreed upon as documented in EMR&OBIX.: Yes Diagnosis: FALSE LABOR BEFORE 37 COMPLETED WEEKS OF GEST, THIRD TRI
== END 2023-03-23 14:35 | disposition home or self-care (01) ==
LOC: FBPOP 13:46
PROVIDERS: ATTEND Obstetrics & Gynecology
DX: O47.03 False labor before 37 completed weeks of gestation, third trimester (principal); O99.333 Smoking (tobacco) complicating pregnancy, third trimester; Z3A.29 29 weeks gestation of pregnancy; Z88.0 Allergy status to penicillin; Z91.040 Latex allergy status; F17.200 Nicotine dependence, unspecified, uncomplicated
CPT/HCPCS: 59025; 81001; G0463; 99213

== ENCOUNTER 2023-10-09 09:45 | Emergency (ER) | payer OTHER ==
[2023-10-09 10:12] VITALS: RESP 18
[2023-10-09] MEDS: KETOROLAC 15 MG/ML 1 ML VIAL IVP STA (10:29)
[2023-10-09 10:42] LABS: Basophils % (A) 0 %; Eosinophils # (A) 0.3 k/uL (0-0.7); Eosinophils % (A) 5 %; HGB 14.2 gm/dL (11.4-16.0); Lymphocytes # (A) 0.5 k/uL (1.0-4.8); Lymphocytes % (A) 10 %; MCH 30.4 pg (25.0-35.0); MCHC 35.4 g/dL (31.0-37.0); MCV 85.8 fL (80.0-100.0); Mean Platelet Volume 7.6; Monocytes # (A) 0.3 k/uL (0-1.0); Monocytes % (A) 6 %; Neutrophils # (A) 4.3 k/uL (1.3-7.7); Neutrophils % (A) 79 %; Platelet Count 255 k/uL (150-450); RBC 4.66 m/uL (3.80-5.40); RDW 14.3 % (11.5-15.5); WBC 5.4 k/uL (3.8-10.6)
--- NOTE | 2023-10-09 10:45 | ED ---
Abdominal Pain HPI - General Chief Complaint: Abdominal Pain Stated Complaint: ABD PAin Time Seen by Provider: 10/09/23 09:54 Source: patient, RN notes reviewed Mode of arrival: ambulatory Limitations: no limitations - History of Present Illness Initial Comments: 23-year-old female presents emergency department chief complaint of abdominal pain. Patient states has worsened over the last 3 days. Patient states its prime in the right lower quadrant. Patient states she was seen by urgent care and was advised to come the emergency department. Patient denies any prior abdominal surgeries denies any dysuria hematuria she does admit to nausea, loss of appetite. Patient reports possible fever. - Related Data Previous Rx's Medication Instructions Recorded Ibuprofen [Motrin] 600 mg PO Q6H #30 tab 06/03/23 Ondansetron Odt [Zofran Odt] 4 mg PO Q8HR PRN #10 tab 10/09/23 Allergies Allergy/AdvReac Type Severity Reaction Status Date / Time latex Allergy Rash/Hives Verified 10/09/23 09:52 Penicillins Allergy Anaphylaxis Verified 10/09/23 09:52 Review of Systems ROS Statement: Those systems with pertinent positive or pertinent negative responses have been documented in the HPI. ROS Other: All systems not noted in ROS Statement are negative. Past Medical History Past Medical History: No Reported History Additional Past Medical History / Comment(s): Obstetric history: She has had 5 previous miscarriages and one previous vaginal delivery This is her seventh . Blood type is O+, abs negative, rubella immune, hepatitis B-, GBS negative, RPR nonreactive. History of Any Multi-Drug Resistant Organisms: None Reported Past Surgical History: Orthopedic Surgery Additional Past Surgical History / Comment(s): right knee surgery at age 1 and right hip surgery at 12 Past Anesthesia/Blood Transfusion Reactions: No Reported Reaction Past Psychological History: Anxiety, Bipolar, Depression Smoking Status: Vaper Past Alcohol Use History: Occasional Past Drug Use History: None Reported - Past Family History Mother Family Medical History: Diabetes Mellitus General Exam Limitations: no limitations General appearance: alert, in no apparent distress Head exam: Present: atraumatic, normocephalic, normal inspection Eye exam: Present: normal appearance, PERRL, EOMI. Absent: scleral icterus, conjunctival injection, periorbital swelling Respiratory exam: Present: normal lung sounds bilaterally. Absent: respiratory distress, wheezes, rales, rhonchi, stridor Cardiovascular Exam: Present: regular rate, normal rhythm, normal heart sounds. Absent: systolic murmur, diastolic murmur, rubs, gallop, clicks GI/Abdominal exam: Present: soft, tenderness (Moderate right lower quadrant), normal bowel sounds. Absent: distended, guarding, rebound, rigid Course Vital Signs 10/09/23 10/09/23 10/09/23 09:49 11:28 12:40 Temperature 98.4 F 98.2 F 98.1 F Pulse Rate 60 87 72 Respiratory 18 18 18 Rate Blood Pressure 98/65 92/69 100/87 O2 Sat by Pulse 100 99 99 Oximetry Medical Decision Making - Medical Decision Making Was pt. sent in by a medical professional or institution (, PA, ORTHOPEDIC BRACE MAKER, urgent care, hospital, or [facility]...) When possible be specific @ -[Urgent care Did you speak to anyone other than the patient for history (EMS, parent, family, police, friend...)? What history was obtained from this source @ -No Did you review nursing and triage notes (agree or disagree)? Why? @ -I reviewed and agree with nursing and triage notes Were old charts reviewed (outside hosp., previous admission, EMS record, old EKG, old radiological studies, urgent care reports/EKG's, [facility] records)? Report findings @ -No old charts were reviewed Differential Diagnosis (chest pain, altered mental status, abdominal pain women, abdominal pain men, vaginal bleeding, weakness, fever, dyspnea, syncope, headache, dizziness, GI bleed, back pain, seizure, CVA, palpatations, mental health, musculoskeletal)? @ -Differential Abdominal Pain Appendicitis, cholecystitis, diverticulosis, ischemic bowel, pancreatitis, hepatitis, UTI, gastroenteritis, AAA, incarcerated hernia, bowel obstruction, constipation, inflammatory bowel, hepatitis, peptic ulcer disease, splenic infarction, perforated viscus, t, this is not meant to be an all-inclusive list EKG interpreted by me (3pts min.). @ -[None X-rays interpreted by me (1pt min.). @ -None done CT interpreted by me (1pt min.). @ -[CT abdomen pelvis shows nonspecific changes, no evidence of acute appendicitis though limited secondary to movement U/S interpreted by me (1pt. min.). @ -None done What testing was considered but not performed or refused? (CT, X-rays, U/S, labs)? Why? @ -None What meds were considered but not given or refused? Why? @ -None Did you discuss the management of the patient with other professionals (professionals i.e. , PA, ORTHOPEDIC BRACE MAKER, lab, RT, psych nurse, case management social worker, lining stitcher, teacher, transit police officer, family independence case manager)? Give summary @ -No Was smoking cessation discussed for >3mins.? @ -No Was critical care preformed (if so, how long)? @ -No Were there social determinants of health that impacted care today? How? (Homelessness, low income, unemployed, alcoholism, drug addiction, tra nsportation, low edu. Level, literacy, decrease access to med. care, skilled nursing, rehab)? @ -No Was there de-escalation of care discussed even if they declined (Discuss DNR or withdrawal of care, Hospice)? DNR status @ -No What co-morbidities impacted this encounter? (DM, HTN, Smoking, COPD, CAD, Cancer, CVA, ARF, Chemo, Hep., AIDS, mental health diagnosis, sleep apnea, morbid obesity)? @ -None Was patient admitted / discharged? Hospital course, mention meds given and route, prescriptions, significant lab abnormalities, going to OR and other pertinent info. @ -[Discharged patient is influenza positive. Patient states she does feel improved. Patient we discharged she is updated on CT findings including nonspecific pericardial effusion, movement limiting evidence appendicitis without inflammatory changes patient return for any worsening changes symptoms. Undiagnosed new problem with uncertain prognosis? @ -No Drug Therapy requiring intensive monitoring for toxicity (Heparin, Nitro, Insulin, Cardizem)? @ -No Were any procedures done? @ -No Diagnosis/symptom? @ -[Influenza A Acute, or Chronic, or Acute on Chronic? @ -Acute Uncomplicated (without systemic symptoms) or Complicated (systemic symptoms)? @ -[Uncomplicated Side effects of treatment? @ -[No Exacerbation, Progression, or Severe Exacerbation? @ -No Poses a threat to life or bodily function? How? (Chest pain, [place], [place], pneumonia, PE, COPD, DKA, ARF, appy, cholecystitis, CVA, Diverticulitis, Homicidal, Suicidal, threat to staff... and all critical care pts) @ -No - Lab Data Result diagrams: 10/09/23 10:18 10/09/23 10:18 Lab Results 10/09/23 10/09/23 10/09/23 Range/Units 10:18 10:18 10:18 WBC 5.4 (3.8-10.6) k/uL RBC 4.66 (3.80-5.40) m/uL Hgb 14.2 (11.4-16.0) gm/dL Hct 40.0 (34.0-46.0) % MCV 85.8 (80.0-100.0) fL MCH 30.4 (25.0-35.0) pg MCHC 35.4 (31.0-37.0) g/dL RDW 14.3 (11.5-15.5) % Plt Count 255 (150-450) k/uL MPV 7.6 Neutrophils % 79 % Lymphocytes % 10 % Monocytes % 6 % Eosinophils % 5 % Basophils % 0 % Neutrophils # 4.3 (1.3-7.7) k/uL Lymphocytes # 0.5 L (1.0-4.8) k/uL Monocytes # 0.3 (0-1.0) k/uL Eosinophils # 0.3 (0-0.7) k/uL Basophils # 0.0 (0-0.2) k/uL Sodium (137-145) mmol/L Potassium (3.5-5.1) mmol/L Chloride (98-107) mmol/L Carbon Dioxide (22-30) mmol/L Anion Gap mmol/L BUN (7-17) mg/dL Creatinine (0.52-1.04) mg/dL Est GFR (CKD-EPI)AfAm (>60 ml/min/1.73 sqM) Est GFR (CKD-EPI)NonAf (>60 ml/min/1.73 sqM) Glucose (74-99) mg/dL Plasma Lactic Acid Javi (0.7-2.0) mmol/L Calcium (8.4-10.2) mg/dL Total Bilirubin (0.2-1.3) mg/dL AST (14-36) U/L ALT (4-34) U/L Alkaline Phosphatase (38-126) U/L Total Protein (6.3-8.2) g/dL Albumin (3.5-5.0) g/dL Lipase (23-300) U/L Urine Color Yellow Urine Appearance Clear (Clear) Urine pH 6.0 (5.0-8.0) Ur Specific [place] 1.028 (1.001-1.035) Urine Protein Negative (Negative) Urine Glucose (UA) Negative (Negative) Urine Ketones Negative (Negative) Urine Blood Moderate H (Negative) Urine Nitrite Negative (Negative) Urine Bilirubin Negative (Negative) Urine Urobilinogen <2.0 (<2.0) mg/dL Ur Leukocyte Esterase Negative (Negative) Urine RBC <1 (0-5) /hpf Urine WBC 5 (0-5) /hpf Ur Squamous Epith Cells 3 (0-4) /hpf Urine Mucus Many H (None) /hpf Urine HCG, Qual Not Detected (Not Detectd) Influenza Type A (PCR) (Not Detectd) Influenza Type B (PCR) (Not Detectd) RSV (PCR) (Not Detectd) SARS-CoV-2 (PCR) (Not Detectd) 10/09/23 10/09/23 10/09/23 Range/Units 10:18 10:18 10:41 WBC (3.8-10.6) k/uL RBC (3.80-5.40) m/uL Hgb (11.4-16.0) gm/dL Hct (34.0-46.0) % MCV (80.0-100.0) fL MCH (25.0-35.0) pg MCHC (31.0-37.0) g/dL RDW (11.5-15.5) % Plt Count (150-450) k/uL MPV Neutrophils % % Lymphocytes % % Monocytes % % Eosinophils % % Basophils % % Neutrophils # (1.3-7.7) k/uL Lymphocytes # (1.0-4.8) k/uL Monocytes # (0-1.0) k/uL Eosinophils # (0-0.7) k/uL Basophils # (0-0.2) k/uL Sodium 137 (137-145) mmol/L Potassium 4.3 (3.5-5.1) mmol/L Chloride 110 H (98-107) mmol/L Carbon Dioxide 18 L (22-30) mmol/L Anion Gap 9 mmol/L BUN 11 (7-17) mg/dL Creatinine 0.79 (0.52-1.04) mg/dL Est GFR (CKD-EPI)AfAm >90 (>60 ml/min/1.73 sqM) Est GFR (CKD-EPI)NonAf >90 (>60 ml/min/1.73 sqM) Glucose 99 (74-99) mg/dL Plasma Lactic Acid Javi 1.5 (0.7-2.0) mmol/L Calcium 9.4 (8.4-10.2) mg/dL Total Bilirubin 0.6 (0.2-1.3) mg/dL AST 31 (14-36) U/L ALT 26 (4-34) U/L Alkaline Phosphatase 65 (38-126) U/L Total Protein 7.2 (6.3-8.2) g/dL Albumin 4.4 (3.5-5.0) g/dL Lipase 86 (23-300) U/L Urine Color Urine Appearance (Clear) Urine pH (5.0-8.0) Ur Specific [place] (1.001-1.035) Urine Protein (Negative) Urine Glucose (UA) (Negative) Urine Ketones (Negative) Urine Blood (Negative) Urine Nitrite (Negative) Urine Bilirubin (Negative) Urine Urobilinogen (<2.0) mg/dL Ur Leukocyte Esterase (Negative) Urine RBC (0-5) /hpf Urine WBC (0-5) /hpf Ur Squamous Epith Cells (0-4) /hpf Urine Mucus (None) /hpf Urine HCG, Qual (Not Detectd) Influenza Type A (PCR) Detected A (Not Detectd) Influenza Type B (PCR) Not Detected (Not Detectd) RSV (PCR) Not Detected (Not Detectd) SARS-CoV-2 (PCR) Not Detected (Not Detectd) Disposition Clinical Impression: Influenza A Disposition: HOME SELF-CARE Condition: Stable Instructions (If sedation given, give patient instructions): Influenza (ED) Additional Instructions: Please return to the Emergency Department if symptoms worsen or any other concerns. Prescriptions: Ondansetron Odt [Zofran Odt] 4 mg PO Q8HR PRN #10 tab PRN Reason: Nausea Is patient prescribed a controlled substance at d/c from ED?: No Referrals: None,Stated [Primary Care Provider] - 1-2 days Time of Disposition: 12:33
[2023-10-09 10:47] LABS: Appearance,Urine Clear (Clear); Bilirubin,Urine Negative (Negative); Blood,Urine Moderate (Negative); Color,Urine Yellow; Glucose,Urine (UA) Negative (Negative); Ketones,Urine Negative (Negative); Leukocyte Esterase,Urine Negative (Negative); Mucus,Urine Many /hpf; Nitrite,Urine Negative (Negative); Protein,Urine Negative (Negative); RBC,Urine <1 /hpf (0-5); Specific Gravity,Urine 1.028 (1.001-1.035); Squamous Epithelial Cell,Urine 3 /hpf (0-4); Urobilinogen,Urine <2.0 mg/dL (<2.0); WBC,Urine 5 /hpf (0-5)
[2023-10-09] MEDS: SODIUM CHLORIDE 0.9% 1,000 ML IV ONE (10:51)
[2023-10-09] MEDS: SODIUM CHLORIDE 0.9% 500 ML 500 ML IV ONE (10:52)
[2023-10-09 10:58] LABS: ALT 26 U/L (4-34); AST 31 U/L (14-36); African American GFR (CKD) >90 (>60 ml/min/1.73 sqM); Albumin 4.4 g/dL (3.5-5.0); Alkaline Phosphatase 65 U/L (38-126); Anion Gap 9 mmol/L; Blood Urea Nitrogen 11 mg/dL (7-17); Calcium 9.4 mg/dL (8.4-10.2); Carbon Dioxide 18 mmol/L (22-30); Chloride 110 mmol/L (98-107); Glucose 99 mg/dL (74-99); Lipase 86 U/L (23-300); Non-African American GFR(CKD) >90 (>60 ml/min/1.73 sqM); Potassium 4.3 mmol/L (3.5-5.1); Sodium 137 mmol/L (137-145); Total Bilirubin 0.6 mg/dL (0.2-1.3); Total Protein 7.2 g/dL (6.3-8.2)
[2023-10-09] MEDS: ONDANSETRON 4 MG/2 ML VIAL IVP STA (11:09)
--- NOTE | 2023-10-09 11:28 | CT ---
EXAMINATION TYPE: CT abdomen pelvis w con DATE OF EXAM: 10/09/2023 COMPARISON: NONE HISTORY: 23-year-old female RLQ pain, nausea. TECHNIQUE: Technologist notes: The patient vomited during first set of images, did a full run through at 3 min. Contiguous axial scanning of the abdomen and pelvis following administration of 100 ml Isovue 300 IV contrast. Delayed images through the kidneys and coronal/sagittal reconstructions performed. CT DLP: 1351.9 mGycm Automated exposure control for dose reduction was used. FINDINGS: Limited by extensive patient motion. The initial scan did not include the pelvis as the patient moved . LUNG BASES: Suspect a small basilar pericardial effusion effusion. Heart normal size. No pleural effu wilberto. LIVER/GB: Round hypervascular area measuring 2.3 cm right hepatic dome not seen on the delayed scan. Possible flash filling hemangioma. Recommend six-month follow-up liver ultrasound to reassess. Otherw ise, no significant abnormality seen. PANCREAS: No significant abnormality is seen. SPLEEN: No significant abnormality is seen. ADRENALS: No significant abnormality is seen. KIDNEYS: No significant abnormality is seen. LYMPH NODES: No significant abnormality is seen. BOWEL: Noted dilated small bowel. No free fluid or free air is seen. Some segments of mildly thickened small bowel loops mid and left side of the abdomen and hanging low in the pelvis as well. Mild overall stool burden. Appendix not clearly identified. PELVIS: Uterus is anteverted. Both ovaries are visualized. No abnormal fluid collection in the pelvis or pelvic lymphadenopathy. OTHER: No significant abnormality is seen. BONES: Small right paracentral disc herniation at T12-L1. Mild facet arthropathy lower lumbar spine. Mild degenerative change of both hips. IMPRESSION: 1. EXAM LIMITED BY EXTENSIVE PATIENT MOTION. 2. SMALL NONSPECIFIC BASILAR PERICARDIAL EFFUSION. 3. ROUND HYPERVASCULAR AREA MEASURING 2.3 CM AT THE RIGHT HEPATIC DOME. POSSIBLE FLASH FILLING YOVANY IOMA. RECOMMEND SIX-MONTH FOLLOW-UP LIVER ULTRASOUND TO REASSESS. 4. SEGMENTS OF MILDLY THICKENED SMALL BOWEL LOOPS MID AND LEFT SIDE OF THE ABDOMEN AND ALSO HANGING L OW IN THE PELVIS. CONSIDER A NONSPECIFIC MILD ENTERITIS.
[2023-10-09 12:42] VITALS: BP 100/87; PULSE 72; TEMP 98.1
== END 2023-10-09 12:42 | disposition home or self-care (01) ==
LOC: EC 09:45
DX: J10.1 Influenza due to other identified influenza virus with other respiratory manifestations (principal); Z20.822 Contact with and (suspected) exposure to COVID-19; F17.290 Nicotine dependence, other tobacco product, uncomplicated; Z88.0 Allergy status to penicillin; Z91.040 Latex allergy status
CPT/HCPCS: 36415; 80053; 83605; 83690; 85025; 81001; 81025; 87636; 74177; 99284; 96374; 96375; 96361 ×2; J2405; J1885

== ENCOUNTER 2025-03-02 11:56 | Emergency (ER) | payer OTHER ==
[2025-03-02 12:12] VITALS: BP 105/70; PULSE 81; RESP 16; TEMP 98.2
--- NOTE | 2025-03-02 12:18 | ED ---
Female Urogenital HPI - General Source: patient, RN notes reviewed Mode of arrival: ambulatory Limitations: no limitations - History of Present Illness Last Menstrual Period: 10/08/24 <Tianna Baker - Last Filed: 03/07/25 19:22> <Meño Zamorano - Last Filed: 03/10/25 10:37> - General Stated complaint: Dizziness,Abd cramping(16 weeks preg) Time Seen by Provider: 03/02/25 12:16 - History of Present Illness Initial comments: Quick [id number] female at approximately 16 weeks gestation presenting for vaginal spotting x 2 days with abdominal cramping. States she had a previous documented intrauterine on ultrasound however does not follow with an OB yet. (Tianna Baker) - Related Data Previous Rx's Medication Instructions Recorded Ibuprofen [Motrin] 600 mg PO Q6H #30 tab 06/03/23 Ondansetron Odt [Zofran Odt] 4 mg PO Q8HR PRN #10 tab 10/09/23 Allergies Allergy/AdvReac Type Severity Reaction Status Date / Time latex Allergy Rash/Hives Verified 10/09/23 09:52 Penicillins Allergy Anaphylaxis Verified 10/09/23 09:52 Review of Systems ROS Other: All systems not noted in ROS Statement are negative. <Tianna Baker - Last Filed: 03/07/25 19:22> ROS Other: All systems not noted in ROS Statement are negative. <Meño Zamorano - Last Filed: 03/10/25 10:37> ROS Statement: Those systems with pertinent positive or pertinent negative responses have been documented in the HPI. Past Medical History Past Medical History: No Reported History Additional Past Medical History / Comment(s): Obstetric history: She has had 5 previous miscarriages and one previous vaginal delivery This is her seventh . Blood type is O+, abs negative, rubella immune, hepatitis B-, GBS negative, RPR nonreactive. History of Any Multi-Drug Resistant Organisms: None Reported Past Surgical History: Orthopedic Surgery Additional Past Surgical History / Comment(s): right knee surgery at age 1 and right hip surgery at 12 Past Anesthesia/Blood Transfusion Reactions: No Reported Reaction Past Psychological History: Anxiety, Bipolar, Depression Smoking Status: Vaper Past Alcohol Use History: Occasional Past Drug Use History: None Reported - Past Family History Mother Family Medical History: Diabetes Mellitus <Tianna Baker - Last Filed: 03/07/25 19:22> General Exam Limitations: no limitations <Tianna Baker - Last Filed: 03/07/25 19:22> - General Exam Comments Initial Comments: Visual Physical Exam Vital signs reviewed General: Well-appearing, nontoxic, no acute distress. Head: Normocephalic, atraumatic Eyes: PERRLA, EOMI ENT: Airway patent Chest: Nonlabored breathing Skin: No visual rash, normal skin tone Neuro: Alert and oriented 3 Musculoskeletal: No gross abnormalities (SamuelTianna) Course Vital Signs 03/02/25 12:09 Temperature 98.2 F Pulse Rate 81 Respiratory 16 Rate Blood Pressure 105/70 O2 Sat by Pulse 99 Oximetry Medical Decision Making - Lab Data Result diagrams: 03/02/25 12:26 03/02/25 12:26 <Tianna aBker - Last Filed: 03/07/25 19:22> - Lab Data Result diagrams: 03/02/25 12:26 03/02/25 12:26 <Meño Zamorano - Last Filed: 03/10/25 10:37> - Medical Decision Making I completed the quick note portion of this chart signed Tianna Baker PA-C (Tianna Baker) No attestation required (Meño Zamorano) - Lab Data Lab Results 03/02/25 03/02/25 03/02/25 Range/Units 12:26 12:26 12:27 WBC 6.99 (4.50-10.00) 10*3/uL RBC 4.50 (4.10-5.20) 10*6/uL Hgb 12.6 (12.0-15.0) g/dL Hct 36.4 L (37.2-46.3) % MCV 80.9 (80.0-97.0) fL MCH 28.0 (27.0-32.0) pg MCHC 34.6 (32.0-37.0) g/dL Plt Count 242 (140-440) 10*3/uL MPV 9.8 (9.5-12.2) fL Immature Gran % (Auto) 0.1 % Neutrophils % 65.2 % Lymphocytes % 25.0 % Monocytes % 5.4 % Eosinophils % 3.7 % Basophils % 0.6 % Immature Gran # 0.01 (0.00-0.04) 10*3/uL Neutrophils # 4.55 (1.80-7.70) 10*3/uL Lymphocytes # 1.75 (0.90-5.00) 10*3/uL Monocytes # 0.38 (0.20-1.00) 10*3/uL Eosinophils # 0.26 (0.04-0.35) 10*3/uL Basophils # 0.04 (0.00-0.10) 10*3/uL Sodium 133 L (137-145) mmol/L Potassium 3.8 (3.5-5.1) mmol/L Chloride 105 (98-107) mmol/L Carbon Dioxide 16 L (22-30) mmol/L Anion Gap 12 mmol/L BUN 4 L (7-17) mg/dL Creatinine 0.50 L (0.52-1.04) mg/dL Est GFR (CKD-EPI)AfAm >90 (>60 ml/min/1.73 sqM) Est GFR (CKD-EPI)NonAf >90 (>60 ml/min/1.73 sqM) Glucose 79 (74-99) mg/dL Calcium 9.8 (8.4-10.2) mg/dL Total Bilirubin 0.5 (0.2-1.3) mg/dL AST 18 (14-36) U/L ALT 10 (4-34) U/L Alkaline Phosphatase 72 (38-126) U/L Total Protein 6.2 L (6.3-8.2) g/dL Albumin 3.6 (3.5-5.0) g/dL HCG, Quant 50917.6 mIU/mL Urine Color Urine Appearance (Clear) Urine pH (5.0-8.0) Ur Specific [place] (1.001-1.035) Urine Protein (Negative) Urine Glucose (UA) (Negative) Urine Ketones (Negative) Urine Blood (Negative) Urine Nitrite (Negative) Urine Bilirubin (Negative) Urine Urobilinogen (<2.0) mg/dL Ur Leukocyte Esterase (Negative) Urine RBC (0-5) /hpf Urine WBC (0-5) /hpf Ur Squamous Epith Cells (0-4) /hpf Urine Bacteria (None) /hpf Blood Type O Positive Blood Type Recheck O Pos Bld Type Recheck Status No 03/02/25 Range/Units 12:30 WBC (4.50-10.00) 10*3/uL RBC (4.10-5.20) 10*6/uL Hgb (12.0-15.0) g/dL Hct (37.2-46.3) % MCV (80.0-97.0) fL MCH (27.0-32.0) pg MCHC (32.0-37.0) g/dL Plt Count (140-440) 10*3/uL MPV (9.5-12.2) fL Immature Gran % (Auto) % Neutrophils % % Lymphocytes % % Monocytes % % Eosinophils % % Basophils % % Immature Gran # (0.00-0.04) 10*3/uL Neutrophils # (1.80-7.70) 10*3/uL Lymphocytes # (0.90-5.00) 10*3/uL Monocytes # (0.20-1.00) 10*3/uL Eosinophils # (0.04-0.35) 10*3/uL Basophils # (0.00-0.10) 10*3/uL Sodium (137-145) mmol/L Potassium (3.5-5.1) mmol/L Chloride (98-107) mmol/L Carbon Dioxide (22-30) mmol/L Anion Gap mmol/L BUN (7-17) mg/dL Creatinine (0.52-1.04) mg/dL Est GFR (CKD-EPI)AfAm (>60 ml/min/1.73 sqM) Est GFR (CKD-EPI)NonAf (>60 ml/min/1.73 sqM) Glucose (74-99) mg/dL Calcium (8.4-10.2) mg/dL Total Bilirubin (0.2-1.3) mg/dL AST (14-36) U/L ALT (4-34) U/L Alkaline Phosphatase (38-126) U/L Total Protein (6.3-8.2) g/dL Albumin (3.5-5.0) g/dL HCG, Quant mIU/mL Urine Color Colorless Urine Appearance Clear (Clear) Urine pH 6.5 (5.0-8.0) Ur Specific [place] 1.005 (1.001-1.035) Urine Protein Negative (Negative) Urine Glucose (UA) Negative (Negative) Urine Ketones 1+ H (Negative) Urine Blood Negative (Negative) Urine Nitrite Negative (Negative) Urine Bilirubin Negative (Negative) Urine Urobilinogen <2.0 (<2.0) mg/dL Ur Leukocyte Esterase Small H (Negative) Urine RBC 1 (0-5) /hpf Urine WBC 1 (0-5) /hpf Ur Squamous Epith Cells 1 (0-4) /hpf Urine Bacteria Rare H (None) /hpf Blood Type Blood Type Recheck Bld Type Recheck Status Disposition <Tianna Baker - Last Filed: 03/07/25 19:22> <Meño Zamorano - Last Filed: 03/10/25 10:37> Clinical Impression: Vaginal bleeding Disposition: LEFT AGAINST MEDICAL ADVICE Referrals: None,Stated [Primary Care Provider] - 1-2 days
[2025-03-02 12:37] LABS: Basophils # (A) 0.04 10*3/uL (0.00-0.10); Basophils % (A) 0.6 %; Eosinophils # (A) 0.26 10*3/uL (0.04-0.35); Eosinophils % (A) 3.7 %; HCT 36.4 % (37.2-46.3); HGB 12.6 g/dL (12.0-15.0); Lymphocytes # (A) 1.75 10*3/uL (0.90-5.00); MCHC 34.6 g/dL (32.0-37.0); MCV 80.9 fL (80.0-97.0); Mean Platelet Volume 9.8 fL (9.5-12.2); Monocytes # (A) 0.38 10*3/uL (0.20-1.00); Monocytes % (A) 5.4 %; Neutrophils # (A) 4.55 10*3/uL (1.80-7.70); Neutrophils % (A) 65.2 %; Platelet Count 242 10*3/uL (140-440); RDW 15.5 % (11.5-14.5); WBC 6.99 10*3/uL (4.50-10.00)
[2025-03-02 12:44] LABS: Appearance,Urine Clear (Clear); Bacteria,Urine Rare /hpf; Bilirubin,Urine Negative (Negative); Blood,Urine Negative (Negative); Color,Urine Colorless; Glucose,Urine (UA) Negative (Negative); Ketones,Urine 1+ (Negative); Leukocyte Esterase,Urine Small (Negative); Nitrite,Urine Negative (Negative); PH, Urine 6.5 (5.0-8.0); Protein,Urine Negative (Negative); RBC,Urine 1 /hpf (0-5); Specific Gravity,Urine 1.005 (1.001-1.035); Squamous Epithelial Cell,Urine 1 /hpf (0-4); Urobilinogen,Urine <2.0 mg/dL (<2.0); WBC,Urine 1 /hpf (0-5)
[2025-03-02 12:58] LABS: ALT 10 U/L (4-34); AST 18 U/L (14-36); African American GFR (CKD) >90 (>60 ml/min/1.73 sqM); Albumin 3.6 g/dL (3.5-5.0); Alkaline Phosphatase 72 U/L (38-126); Anion Gap 12 mmol/L; Blood Urea Nitrogen 4 mg/dL (7-17); Calcium 9.8 mg/dL (8.4-10.2); Carbon Dioxide 16 mmol/L (22-30); Chloride 105 mmol/L (98-107); Glucose 79 mg/dL (74-99); Non-African American GFR(CKD) >90 (>60 ml/min/1.73 sqM); Potassium 3.8 mmol/L (3.5-5.1); Sodium 133 mmol/L (137-145); Total Bilirubin 0.5 mg/dL (0.2-1.3); Total Protein 6.2 g/dL (6.3-8.2)
--- NOTE | 2025-03-02 13:44 | US ---
EXAMINATION TYPE: US OB >= 14 wk fetus DATE OF EXAM: 03/02/2025 COMPARISON: US 11/05/2022 CLINICAL INDICATION: Female, 24 years old with history of vaginal bleeding in ; Cramping, TECHNIQUE: Transabdominal (TA) FINDINGS: GESTATIONAL AGE / DATING Physician Established: Not yet established Dates by First Scan: This is the first scan Dates by Current Scan: (16 weeks/2 days) EDC: 08/15/2025 Beta HCG (if available): Not available at this time SURVEY IUP: Single PLACENTA: Posterior PREVIA: No Previa. The caudal placental margin is located 5.6 cm from the internal cervical os. JAMES: 11.2 cm Normal CERVICAL LENGTH (transabdominal: norm > 3.0cm): 4.0 cm BIOMETRY PRESENTATION: Vertex BPD: 3.4 cm 16 weeks / 3 days HC: 12.4 cm 16 weeks / 2 days AC: 10.6 cm 16 weeks / 4 days FL: 1.9 cm 15 weeks / 5 days ESTIMATED WEIGHT IN GRAMS: 147.3 grams ESTIMATED WEIGHT IN LBS/OZ: 0 lbs. 5 oz. WEIGHT PERCENTAGE BASED ON ESTABLISHED DATES: 34.1% HC/AC: 1.2 Normal FL/AC: 18.4 HEART RATE: 146 bpm RHYTHM: Normal IMPRESSION: 1. Single live intrauterine with gestational age of 16 weeks 2 days by current ultrasound b iometry. 2. Complete survey recommended at 18-20 weeks. 3. Cephalic presentation. Posterior placenta without previa. [facility], Workstation: [id number], 03/02/2025 1:41 PM
== END 2025-03-02 18:36 | disposition left against medical advice (07) ==
LOC: EC 11:56
DX: O20.9 Hemorrhage in early pregnancy, unspecified (principal); O99.332 Smoking (tobacco) complicating pregnancy, second trimester; F17.290 Nicotine dependence, other tobacco product, uncomplicated; Z88.0 Allergy status to penicillin; Z91.040 Latex allergy status; Z3A.16 16 weeks gestation of pregnancy
CPT/HCPCS: 36415; 76805; 80053; 81001; 84702; 85025; 86900; 86901; 99284